=== PATIENT | male | born 1965 | race Caucasian/White ===

== ENCOUNTER 2020-08-18 20:02 | Emergency (ER) | payer MEDICAID, SELFPAY ==
--- NOTE | 2020-08-18 21:12 | ECG_ITS ---
Test Reason : SHORTNESS OF BREATH Blood Pressure : / mmHG Vent. Rate : 084 BPM Atrial Rate : 084 BPM P-R Int : 156 ms QRS Dur : 084 ms QT Int : 398 ms P-R-T Axes : 048 -20 -06 degrees QTc Int : 470 ms Normal sinus rhythm Voltage criteria for left ventricular hypertrophy Abnormal ECG No previous ECGs available Referred By: Harika Tejada Electronically Signed By:JULES DE LEON MD
[2020-08-18 21:40] VITALS: PULSE 86; RESP 18; TEMP 36.8; O2SAT 98; BMI 28.2
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
[2020-08-18 23:00] LABS: Carboxyhemoglobin 18.4 %
--- NOTE | 2020-08-18 23:11 | PC.NURSE ---
PT PLACED ON PT PLACED ON 02 IN ROOM DO TO ELEVATED LABS.
[2020-08-18 23:59] LABS: Carboxyhemoglobin 16.6 %
--- NOTE | 2020-08-19 00:07 | PC.NURSE ---
REPEAT BG STILL HIGH PT WILL REMAIN ON 4L OF O2. REPEAT GAS WILL BE ORDERED.
--- NOTE | 2020-08-19 00:32 | PC.NURSE ---
PT WILL BE RE-DRAWN AT 12:50 PM.
[2020-08-19 01:14] LABS: Carboxyhemoglobin 11.8 %
[2020-08-19 01:17] VITALS: BP 118/69; PULSE 61; RESP 16; O2SAT 100
--- NOTE | 2020-08-19 02:17 | PC.NURSE ---
pt increased to 6lpm via nc.
[2020-08-19 04:11] LABS: Carboxyhemoglobin 6.3 %
--- NOTE | 2020-08-19 04:12 | PC.NURSE ---
per md pt is okay to go home.
[2020-08-19 04:22] VITALS: BP 120/69; PULSE 60; RESP 18; O2SAT 100
== END 2020-08-19 04:23 | disposition home or self-care (01) ==
PROVIDERS: Nurse Practitioner Family; Student in an Organized Health Care Education/Training Program; Emergency Provider Internal Medicine
DX: T58.01XA Toxic effect of carbon monoxide from motor vehicle exhaust, accidental (unintentional), initial encounter (principal); R42 Dizziness and giddiness; X58.XXXA Exposure to other specified factors, initial encounter
CPT/HCPCS: 82375; 93005; 99284

== ENCOUNTER 2021-07-14 14:26 | Emergency (ER) | payer MEDICAID, SELFPAY ==
[2021-07-14 16:56] VITALS: BP 135/84; PULSE 64; RESP 18; TEMP 36.8; O2SAT 97; BMI 27.6
== END 2021-07-15 03:06 | disposition left against medical advice (07) ==
PROVIDERS: Emergency Provider Emergency Medicine
DX: G43.009 Migraine without aura, not intractable, without status migrainosus (principal)
CPT/HCPCS: 99281; 99282

== ENCOUNTER 2021-10-27 17:04 | Outpatient (REF) | payer MEDICAID, SELFPAY ==
--- NOTE | ~2021-10-27 | XR_ITS ---
EXAMINATION: XR SHOULDER, LEFT CLINICAL INFORMATION: Pain COMPARISON: None TECHNIQUE: AP external rotation, Grashey, scapular Y, and axillary views of the left shoulder. FINDINGS: Mild acromioclavicular arthritis. Mild enthesopathy/spurring along the inferior glenoid. Glenohumeral joint space is maintained. No fracture or dislocation. XR/XR shoulder LT min 2V IMPRESSION: Mild acromioclavicular arthritis. No acute findings.
== END 2021-10-27 17:05 | disposition home or self-care (01) ==
LOC: HO.XRAY 17:04
PROVIDERS: Absent Provider Registered Nurse Community Health; PCP Registered Nurse Community Health; Visit Provider Emergency Medicine
DX: M79.622 Pain in left upper arm (principal)
CPT/HCPCS: 73030

== ENCOUNTER 2021-12-27 19:17 | Emergency (ER) | payer MEDICAID, SELFPAY ==
--- NOTE | ~2021-12-27 | XR_ITS ---
EXAMINATION: XR CHEST CLINICAL INFORMATION: Chest pain COMPARISON: 07/21/2016 TECHNIQUE: Frontal view of the chest was obtained. FINDINGS: Patchy and streaky opacities present within the left mid and lower lung. Right lung clear. Normal heart size and pulmonary vascularity. No pleural effusion or pneumothorax. No acute osseous abnormalities. XR/XR chest 1V IMPRESSION: Left mid and lower lung patchy and streaky airspace opacities. Statistically, this relates to pneumonia unless there is some other potential etiology for an airspace filling process (ie pulmonary hemorrhage, or asymmetric edema)
[2021-12-27 20:37] VITALS: BP 119/80; PULSE 92; RESP 20; TEMP 39.5; O2SAT 94; BMI 27.6
[2021-12-27] MEDS: Acetaminophen 325 MG TABLET 650 MG PO (20:45)
[2021-12-27 21:02] LABS: MANUAL DIFF FLAG NO
[2021-12-27 21:04] LABS: Basophils Percent Auto 0.2 % (0-2); Eosinophils Absolute Auto 0.1 X10*3/uL (0.0-0.4); Eosinophils Percent Auto 0.5 % (0-4); Hematocrit 40.9 % (42.0-52.0); Hemoglobin 13.7 g/dl (14.0-18.0); Imm Gran Pct Auto 0.9 % (0.0-0.4); Lymphocytes Percent Auto 9.1 % (20-40); Mean Corpuscular HGB Conc 33.5 g/dl (31.0-36.0); Mean Corpuscular Hemoglobin 29.6 pg (27.0-33.0); Mean Corpuscular Volume 88.3 fL (80.0-98.0); Monocytes Absolute Auto 1.1 X10*3/uL (0.1-1.2); Monocytes Percent Auto 9.5 % (2-11); Neutrophils Absolute Auto 8.8 x10*3/uL (2.0-8.3); Neutrophils Percent Auto 79.8 % (45-73); Platelet Count 184 X10*3/uL (160-400); Red Blood Count 4.63 X10*6/uL (4.60-5.80); Red Cell Distribution Width 13.2 % (11.0-16.0)
[2021-12-27 21:26] LABS: Influenza A Negative (Negative); Influenza B2 Negative (Negative)
[2021-12-27 21:27] LABS: COVID-19 Test Negative (Negative)
[2021-12-27 21:43] LABS: Anion Gap 16 (12-20); Blood Urea Nitrogen 13 mg/dL (9-16); Calcium 8.6 mg/dL (8.4-10.2); Carbon Dioxide 24 mmol/L (22-29); Chloride 99 mmol/L (96-108); Creatinine Clr Calc Pharmacy 108.7; Estimated Glomerular Filt Rate > 60; Glucose Random 111 mg/dL (60-115); Potassium 3.9 mmol/L (3.3-5.1); Sodium 135 mmol/L (135-145)
[2021-12-27 22:29] VITALS: BP 123/78; PULSE 76; RESP 20; TEMP 37.3; O2SAT 94
--- NOTE | 2021-12-27 23:03 | ED.FEVER ---
HPI - Fever General Chief Complaint: Fever Stated Complaint: fever,head and body aches Time Seen by Provider: 12/27/21 22:01 History of Present Illness HPI Narrative: Patient is 56 years old presents today with having coughing upper respiratory symptoms. Positive generalized malaise. No travel history. No history of tick bites. No pain on urination. No sore throat. No earache. Patient immunized for COVID x3. There is no pain on urination. Related Data Previous Rx's Medication Instructions Recorded doxycycline hyclate 100 mg capsule 100 mg PO BID cough 7 days #14 caps 12/28/21 doxycycline hyclate 100 mg capsule 100 mg PO BID cough 7 days #14 caps 12/28/21 Allergies Allergy/AdvReac Type Severity Reaction Status Date / Time tramadol [TRAMADOL] Allergy Severe RASH Verified 07/14/21 16:56 sea salt chips Allergy Unknown anaphylaxis Uncoded 09/09/18 00:00 ,rash,hives Review of Systems Review of Systems: Positive coughing congestion upper respiratory symptoms Yes all other systems are reviewed and are negative [facility] Past Medical History Attestation statement: The following information was validated with the patient. Medical History Hypertension Migraines Social History Social History Alcohol intake: never Patient Tobacco Use Status: Never used Tobacco Use of substances other than those prescribed or required for medical reasons: No Advance Directives: No Advance Directives Information Provided: No Physical Exam Vital Signs: Vital Signs: Last Vital Signs Temp 97.9 F 12/28/21 00:13 Pulse 72 12/28/21 00:13 Resp 16 12/28/21 00:13 BP 111/75 12/28/21 00:13 Pulse Ox 96 12/28/21 00:13 O2 Del Method 12/28/21 00:13 BMI result Body Mass Index 27.6 Appearance: Alert. Oriented X3. No acute distress. Eyes: Pupils equal, round and reactive to light. ENT: Pharynx normal. Neck: Normal inspection. Neck supple. No lymph nodes noted. No crepitus CVS: Normal heart rate and rhythm. Pulses normal. Normal S1 and S2 Respiratory: No respiratory distress. Breath sounds normal. No Wheezing. No rales Abdomen: Soft and nontender. No rigidity. No distention. good BS x4 Skin: Skin warm and dry. Normal skin color. Normal skin turgor. Extremities: No lower extremity edema. Neurovascular intact to all extremities. No Lacerations. No Rash Neuro: Oriented X 3. No motor deficit. No sensory deficit. Moving all extermities. No slurred speech MDM - Fever MDM Narrative Medical decision making narrative: White count 11 O2 sats 94% on room air. Patient's COVID test was negative. Chest x-ray consistent with having pneumonia. Will start patient on doxycycline. Will have patient follow-up on an outpatient basis. Will ambulate patient prior to discharge make sure patient's O2 sats good. Post ambulation no shortness of breath patient well-appearing. O2 sat 96% on room air Medical Records Attestation: I reviewed the patient's medical records. Lab Data Attestation: I reviewed the patient's lab results. Result diagrams: 12/27/21 20:46 12/27/21 20:46 Labs: Lab Results 12/27/21 12/27/21 12/27/21 Range/Units 20:46 20:46 20:49 WBC 11.0 H (4.8-10.8) X10*3/uL RBC 4.63 (4.60-5.80) X10*6/uL Hgb 13.7 L (14.0-18.0) g/dl Hct 40.9 L (42.0-52.0) % MCV 88.3 (80.0-98.0) fL MCH 29.6 (27.0-33.0) pg MCHC 33.5 (31.0-36.0) g/dl RDW 13.2 (11.0-16.0) % Plt Count 184 (160-400) X10*3/uL MPV 10.0 (9.4-12.4) fL Immature Gran % (Auto) 0.9 H (0.0-0.4) % Neut % (Auto) 79.8 H (45-73) % Lymph % (Auto) 9.1 L (20-40) % [place] % (Auto) 9.5 (2-11) % Eos % (Auto) 0.5 (0-4) % Baso % (Auto) 0.2 (0-2) % Lymph # (Auto) 1.0 L (1.2-4.9) X10*3/uL [place] # (Auto) 1.1 (0.1-1.2) X10*3/uL Eos # (Auto) 0.1 (0.0-0.4) X10*3/uL Baso # (Auto) 0.0 (0.0-0.2) X10*3/uL Abs Immat Gran (auto) 0.10 H (0.00-0.03) X10*3/uL Absolute Neuts (auto) 8.8 H (2.0-8.3) x10*3/uL Absolute Nucleated RBC 0.000 (0.0-0.012) X10*3/uL Nucleated RBC % (auto) 0.0 (0.0-0.2) /100WBC Sodium 135 (135-145) mmol/L Potassium 3.9 (3.3-5.1) mmol/L Chloride 99 (96-108) mmol/L Carbon Dioxide 24 (22-29) mmol/L Anion Gap 16 (12-20) BUN 13 (9-16) mg/dL Creatinine 0.82 (0.5-1.4) mg/dL Estim Creat Clear Calc 108.7 Estimated GFR > 60 Random Glucose 111 (60-115) mg/dL Calcium 8.6 (8.4-10.2) mg/dL Urine Color Urine Appearance Urine pH (5.0-8.0) Ur Specific [place] (1.005-1.025) Urine Protein (NEG-TRACE) MG/DL Urine Glucose (UA) (NEG) MG/DL Urine Ketones (NEG) MG/DL Urine Blood (NEG) Urine Nitrite (NEG) Ur Leukocyte Esterase (NEG) Urine RBC (0) /HPF Urine WBC (0-4) /HPF Ur Squamous Epith Cells /LPF Urine Bacteria /LPF COVID-19 (MICAELA) (Negative) COVID-19 Clin Com Influenza Type A (SHIRLEY) Negative (Negative) Influenza Type B (SHIRLEY) Negative (Negative) Influenza A & B Note See Note 12/27/21 12/27/21 Range/Units 20:49 22:55 WBC (4.8-10.8) X10*3/uL RBC (4.60-5.80) X10*6/uL Hgb (14.0-18.0) g/dl Hct (42.0-52.0) % MCV (80.0-98.0) fL MCH (27.0-33.0) pg MCHC (31.0-36.0) g/dl RDW (11.0-16.0) % Plt Count (160-400) X10*3/uL MPV (9.4-12.4) fL Immature Gran % (Auto) (0.0-0.4) % Neut % (Auto) (45-73) % Lymph % (Auto) (20-40) % [place] % (Auto) (2-11) % Eos % (Auto) (0-4) % Baso % (Auto) (0-2) % Lymph # (Auto) (1.2-4.9) X10*3/uL [place] # (Auto) (0.1-1.2) X10*3/uL Eos # (Auto) (0.0-0.4) X10*3/uL Baso # (Auto) (0.0-0.2) X10*3/uL Abs Immat Gran (auto) (0.00-0.03) X10*3/uL Absolute Neuts (auto) (2.0-8.3) x10*3/uL Absolute Nucleated RBC (0.0-0.012) X10*3/uL Nucleated RBC % (auto) (0.0-0.2) /100WBC Sodium (135-145) mmol/L Potassium (3.3-5.1) mmol/L Chloride (96-108) mmol/L Carbon Dioxide (22-29) mmol/L Anion Gap (12-20) BUN (9-16) mg/dL Creatinine (0.5-1.4) mg/dL Estim Creat Clear Calc Estimated GFR Random Glucose (60-115) mg/dL Calcium (8.4-10.2) mg/dL Urine Color YELLOW Urine Appearance CLEAR Urine pH 6.5 (5.0-8.0) Ur Specific [place] <= 1.005 (1.005-1.025) Urine Protein 2+ H (NEG-TRACE) MG/DL Urine Glucose (UA) NEG (NEG) MG/DL Urine Ketones NEG (NEG) MG/DL Urine Blood 1+ H (NEG) Urine Nitrite NEG (NEG) Ur Leukocyte Esterase NEG (NEG) Urine RBC 0-2 (0) /HPF Urine WBC 0-2 (0-4) /HPF Ur Squamous Epith Cells TRACE /LPF Urine Bacteria NONE /LPF COVID-19 (MICAELA) Negative (Negative) COVID-19 Clin Com See Note Influenza Type A (SHIRLEY) (Negative) Influenza Type B (SHIRLEY) (Negative) Influenza A & B Note Discharge Plan Discharge Clinical Impression: Pneumonia Patient Disposition: Home, Self-Care Instructions: Community Acquired Pneumonia (ED) Prescriptions: New doxycycline hyclate 100 mg capsule 100 mg PO BID 7 Days Qty: 14 0RF doxycycline hyclate 100 mg capsule 100 mg PO BID 7 Days Qty: 14 0RF Referrals: [facility] [Primary Care Provider] -
[2021-12-27 23:05] LABS: Appearance Urine CLEAR; Color Urine YELLOW; Glucose Urine UA NEG (NEG); Leukocyte Esterase Urine NEG (NEG); Nitrite Urine NEG (NEG); PH 6.5 (5.0-8.0); Specific Gravity - Urine <= 1.005 (1.005-1.025); UACC Culture Trigger NO; Urine Blood 1+ (NEG); Urine Ketones NEG (NEG); Urine Protein 2+ MG/DL (NEG-TRACE)
[2021-12-27 23:14] LABS: RBC Urine 0-2 /HPF (0); Squamous Epithelial Cell Urine TRACE /LPF; WBC Urine 0-2 /HPF (0-4)
[2021-12-27 23:19] VITALS: BP 106/73; PULSE 66; RESP 16; TEMP 36.6; O2SAT 94
[2021-12-28 00:13] VITALS: BP 111/75; PULSE 72; RESP 16; TEMP 36.6; O2SAT 96
[2021-12-28 00:32] VITALS: BP 118/78; PULSE 65; RESP 16; TEMP 37.1; O2SAT 95
[2021-12-29 13:11] LABS: Lyme Abs Screen <0.90 index
[2021-12-29 17:20] LABS: Babesia Smear NEGATIVE (NEGATIVE)
[2021-12-31 02:52] LABS: Babesia IgG <1:64 titer (<1:64); Babesia IgM <1:20 titer (<1:20)
[2021-12-31 03:38] LABS: A. Phagocytophilum Ab IgG <1:64 (<1:64); A. Phagocytophilum Ab IgM <1:20 (<1:20); E. Chaffeensis Ab IgG <1:64 (<1:64); E. Chaffeensis Ab IgM <1:20 (<1:20)
== END 2021-12-28 00:41 | disposition home or self-care (01) ==
PROVIDERS: Emergency Provider Emergency Medicine Emergency Medical Services
DX: J18.9 Pneumonia, unspecified organism (principal); Z20.822 Contact with and (suspected) exposure to COVID-19; R50.9 Fever, unspecified; I10 Essential (primary) hypertension
CPT/HCPCS: 36415; 71045; 80048; 81001; 85025; 86617; 86618; 86666; 86753; 87040; 87207; 87502; 87635; 99283; 99285

== ENCOUNTER → 2022-02-27 07:48 | Outpatient (BNVA) | payer MEDICAID, SELFPAY | PROVIDERS: Visit Provider Physician Assistant | DX: M75.42 Impingement syndrome of left shoulder (principal) | CPT/HCPCS: 20610; 99202; J1040 ==

== ENCOUNTER → 2022-05-26 10:35 | Outpatient (BNVA) | payer OTHER, MEDICAID, SELFPAY | PROVIDERS: Visit Provider Nurse Practitioner | DX: Z01.818 Encounter for other preprocedural examination (principal) | CPT/HCPCS: 99202 ==

== ENCOUNTER 2022-05-28 16:33 | Emergency (ER) | payer MEDICAID, SELFPAY ==
--- NOTE | ~2022-05-28 | XR_ITS ---
EXAMINATION: XR chest 1V CLINICAL INFORMATION: Reason for Exam cp COMPARISON: Chest radiograph 12/27/2021 TECHNIQUE: One view of the chest FINDINGS: Clear lungs. No pneumothorax or pleural effusion. Normal cardiomediastinal silhouette. XR/XR chest 1V IMPRESSION: * Clear lungs.
[2022-05-28 16:38] VITALS: BP 142/93; PULSE 68; RESP 16; TEMP 36.6; O2SAT 97; BMI 28.3
--- NOTE | 2022-05-28 16:38 | ECG_ITS ---
Test Reason : chest pain Blood Pressure : / mmHG Vent. Rate : 066 BPM Atrial Rate : 066 BPM P-R Int : 160 ms QRS Dur : 082 ms QT Int : 434 ms P-R-T Axes : 047 -20 -05 degrees QTc Int : 454 ms Normal sinus rhythm Minimal voltage criteria for LVH, may be normal variant ( R in aVL ) Borderline ECG When compared with ECG of 18-AUG-2020 22:53, No significant change was found Referred By: Teresita Jean Electronically Signed By:RYAN WOODRUFF MD
--- NOTE | 2022-05-28 16:40 | ED_ITS ---
HPI - Chest Pain General Chief Complaint: Chest Pain <WILBER Zaragoza - Last Filed: 05/28/22 16:42> Stated Complaint: Chest Pain <WILBER Zaragoza - Last Filed: 05/28/22 16:42> Time Seen by Provider: 05/29/22 00:29 <WILBER Zaragoza - Last Filed: 05/28/22 16:42> Source: patient <Ulices Phan MD - Last Filed: 05/29/22 06:57> Mode of arrival: ambulatory <Ulices Phan MD - Last Filed: 05/29/22 06:57> History of Present Illness HPI narrative: Patient is 56 years old with history of depression chronic low back pain high cholesterol PTSD comes here for headache and left-sided chest pain since yesterday after no nausea no vomiting no diaphoresis no palpitation no shortness of breath patient does have a history of migraine headache but this time headache is more localized in the frontal area without nausea/vomiting or photophobia <Ulices Phan MD - Last Filed: 05/29/22 06:57> Related Data Home Medications: Home Medications Medication Instructions Recorded Confirmed bisoprolol fumarate 5 mg tablet 5 mg PO DAILY 02/27/22 bupropion HCl 150 mg 24 hr tablet, 150 mg PO QAM 02/27/22 extended release fluticasone propionate 50 spray intranasal 02/27/22 mcg/actuation nasal spray,suspension gabapentin 300 mg capsule mg PO 02/27/22 ketotifen fumarate 0.025 % (0.035 drp ophthalmic (eye) 02/27/22 %) eye drops naproxen sodium 275 mg tablet 275 mg PO BID 02/27/22 nortriptyline 10 mg capsule 10 mg PO BID 02/27/22 sertraline 100 mg tablet 100 mg PO BID 02/27/22 trazodone 100 mg tablet mg PO 02/27/22 ubidecarenone-omega 3-vit E 25 1 cap PO DAILY 05/26/22 mg-150 (90-60) mg-200 unit capsule (Co O-37-Axlnmhc E-Fish Oil) Previous Rx's Medication Instructions Recorded doxycycline hyclate 100 mg capsule 100 mg PO BID cough 7 days #14 caps 12/28/21 peg 3350-electrolytes 236 240 ml PO Q10M 1 day #4,000 mL 05/26/22 gram-22.74 gram-6.74 gram-5.86 gram solution (Golytely) naproxen 500 mg tablet 500 mg PO BID PRN pain #20 tabs 05/29/22 <WILBER Zaragoza - Last Filed: 05/28/22 16:42> Allergies/Adverse Reactions: Allergies Allergy/AdvReac Type Severity Reaction Status Date / Time tramadol [TRAMADOL] Allergy Severe RASH Verified 05/28/22 16:38 sea salt chips Allergy Unknown anaphylaxis Uncoded 05/26/22 10:51 ,rash,hives <WILBER Zaragoza - Last Filed: 05/28/22 16:42> Review of Systems Review of Systems: Yes all other systems are reviewed and are negative <Ulices Phan MD - Last Filed: 05/29/22 06:57> [facility] Past Medical History Medical History: Medical History Hypertension Migraines <WILBER Zaragoza - Last Filed: 05/28/22 16:42> Surgical History: Surgical History H/O vasectomy <WILBER Zaragoza - Last Filed: 05/28/22 16:42> Social History Social History: Social History Alcohol intake: never Patient Tobacco Use Status: Never used Tobacco Advance Directives: No Advance Directives Information Provided: Yes Current occupational status: unemployed 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 <WILBER Zaragoza - Last Filed: 05/28/22 16:42> Physical Exam Vital Signs: Vital Signs: Last Vital Signs Temp 97.8 F 05/28/22 16:38 Pulse 63 05/29/22 01:50 Resp 18 05/29/22 01:50 BP 144/95 H 05/29/22 01:50 Pulse Ox 99 05/29/22 01:50 O2 Del Method 05/29/22 01:50 BMI result Body Mass Index 28.3 <WILBER Zaragoza - Last Filed: 05/28/22 16:42> Vital Signs: Last Vital Signs Temp 97.8 F 05/28/22 16:38 Pulse 63 05/29/22 01:50 Resp 18 05/29/22 01:50 BP 144/95 H 05/29/22 01:50 Pulse Ox 99 05/29/22 01:50 O2 Del Method 05/29/22 01:50 BMI result Body Mass Index 28.3 <Ulices Phan MD - Last Filed: 05/29/22 06:57> Appearance: Alert. Oriented X3. No acute distress. Eyes: PERRLA, No Nystagmus ENT: Pharynx normal. Oral Mucosa moist Neck: Normal inspection. Neck supple. CVS: Normal heart rate and rhythm. Pulses normal. Respiratory: No respiratory distress. Equal air entry bilateral, no wheezing/rales/rhonchi Abdomen: Soft and nontender. Bowel sounds are present, no mass palpable, no CVA tenderness Skin: Skin warm and dry. Normal skin color. Normal skin turgor. Extremities: No lower extremity edema. No calf tenderness Neuro: Oriented X 3. No motor deficit. No sensory deficit.No cerebellar signs , cranial nerves II-XII intact <Ulices Phan MD - Last Filed: 05/29/22 06:57> Course Course Course Narrative: RME--56yo M pmhx HTN c/o CP and KAT since yesterday AM. Pain intermittent. No assoc SOB, N/V. Admits to prior KAT's, took Excedrin w/o relief Plan: EKG, Labs, CXR, Fioricet ordered in Triage <WILBER Zaragoza - Last Filed: 05/28/22 16:42> Medications Administered Discontinued Medications Generic Name Dose Route Start Last Admin Trade Name Freq PRN Reason Stop Dose Admin Acetaminophen/Butalbital/Caffeine 1 tab 05/29/22 00:38 05/29/22 01:44 Butalb/Acetamin/Caff 50/325/40 Tablet PO 05/29/22 00:39 1 tab ONCE ONE Administration Ketorolac Tromethamine 60 mg 05/29/22 00:38 05/29/22 01:44 Ketorolac Tromethamine 60 Mg/2 Ml Vial IM 05/29/22 00:39 60 mg ONCE ONE Administration <WILBER Zaragoza - Last Filed: 05/28/22 16:42> Medications Administered Discontinued Medications Generic Name Dose Route Start Last Admin Trade Name Nat PRN Reason Stop Dose Admin Acetaminophen/Butalbital/Caffeine 1 tab 05/29/22 00:38 05/29/22 01:44 Butalb/Acetamin/Caff 50/325/40 Tablet PO 05/29/22 00:39 1 tab ONCE ONE Administration Ketorolac Tromethamine 60 mg 05/29/22 00:38 05/29/22 01:44 Ketorolac Tromethamine 60 Mg/2 Ml Vial IM 05/29/22 00:39 60 mg ONCE ONE Administration <Ulices Phan MD - Last Filed: 05/29/22 06:57> MDM - Chest Pain Lab Data Attestation: I reviewed the patient's lab results. <Ulices Phan MD - Last Filed: 05/29/22 06:57> Result diagrams: : 05/28/22 17:03 05/28/22 17:03 <WILBER Zaragoza - Last Filed: 05/28/22 16:42> Labs: Lab Results 05/28/22 05/28/22 05/28/22 Range/Units 17:02 17:03 17:03 WBC 6.1 (4.8-10.8) X10*3/uL RBC 5.26 (4.60-5.80) X10*6/uL Hgb 15.7 (14.0-18.0) g/dl Hct 46.4 (42.0-52.0) % MCV 88.2 (80.0-98.0) fL MCH 29.8 (27.0-33.0) pg MCHC 33.8 (31.0-36.0) g/dl RDW 12.6 (11.0-16.0) % Plt Count 150 L (160-400) X10*3/uL MPV 10.5 (9.4-12.4) fL Immature Gran % (Auto) 0.3 (0.0-0.4) % Neut % (Auto) 56.4 (45-73) % Lymph % (Auto) 31.8 (20-40) % Spalding % (Auto) 7.4 (2-11) % Eos % (Auto) 3.6 (0-4) % Baso % (Auto) 0.5 (0-2) % Lymph # (Auto) 1.9 (1.2-4.9) X10*3/uL Spalding # (Auto) 0.5 (0.1-1.2) X10*3/uL Eos # (Auto) 0.2 (0.0-0.4) X10*3/uL Baso # (Auto) 0.0 (0.0-0.2) X10*3/uL Abs Immat Gran (auto) 0.02 (0.00-0.03) X10*3/uL Absolute Neuts (auto) 3.4 (2.0-8.3) x10*3/uL Absolute Nucleated RBC 0.000 (0.0-0.012) X10*3/uL Nucleated RBC % (auto) 0.0 (0.0-0.2) /100WBC Sodium 141 (135-145) mmol/L Potassium 4.0 (3.3-5.1) mmol/L Chloride 104 (96-108) mmol/L Carbon Dioxide 25 (22-29) mmol/L Anion Gap 16 (12-20) BUN 12 (9-16) mg/dL Creatinine 0.88 (0.5-1.4) mg/dL Estim Creat Clear Calc 102.4 Estimated GFR > 60 Random Glucose 96 (60-115) mg/dL Calcium 9.2 D (8.4-10.2) mg/dL Total Bilirubin 0.4 (0.0-1.0) mg/dL Direct Bilirubin < 0.2 (0.0-0.5) mg/dL AST 22 (5-37) U/L ALT 22 (0-40) U/L Alkaline Phosphatase 86 (39-117) U/L Troponin I High Sens (<3.5-35.0) ng/L B-Natriuretic Peptide (<100) pg/mL Total Protein 7.3 (6.5-8.0) g/dL Albumin 4.3 (3.5-5.0) g/dL COVID-19 (MICAELA) Negative (Negative) COVID-19 Clin Com See Note 05/28/22 05/28/22 Range/Units 17:03 17:03 WBC (4.8-10.8) X10*3/uL RBC (4.60-5.80) X10*6/uL Hgb (14.0-18.0) g/dl Hct (42.0-52.0) % MCV (80.0-98.0) fL MCH (27.0-33.0) pg MCHC (31.0-36.0) g/dl RDW (11.0-16.0) % Plt Count (160-400) X10*3/uL MPV (9.4-12.4) fL Immature Gran % (Auto) (0.0-0.4) % Neut % (Auto) (45-73) % Lymph % (Auto) (20-40) % Spalding % (Auto) (2-11) % Eos % (Auto) (0-4) % Baso % (Auto) (0-2) % Lymph # (Auto) (1.2-4.9) X10*3/uL Spalding # (Auto) (0.1-1.2) X10*3/uL Eos # (Auto) (0.0-0.4) X10*3/uL Baso # (Auto) (0.0-0.2) X10*3/uL Abs Immat Gran (auto) (0.00-0.03) X10*3/uL Absolute Neuts (auto) (2.0-8.3) x10*3/uL Absolute Nucleated RBC (0.0-0.012) X10*3/uL Nucleated RBC % (auto) (0.0-0.2) /100WBC Sodium (135-145) mmol/L Potassium (3.3-5.1) mmol/L Chloride (96-108) mmol/L Carbon Dioxide (22-29) mmol/L Anion Gap (12-20) BUN (9-16) mg/dL Creatinine (0.5-1.4) mg/dL Estim Creat Clear Calc Estimated GFR Random Glucose (60-115) mg/dL Calcium (8.4-10.2) mg/dL Total Bilirubin (0.0-1.0) mg/dL Direct Bilirubin (0.0-0.5) mg/dL AST (5-37) U/L ALT (0-40) U/L Alkaline Phosphatase (39-117) U/L Troponin I High Sens < 3.5 (<3.5-35.0) ng/L B-Natriuretic Peptide 15 (<100) pg/mL Total Protein (6.5-8.0) g/dL Albumin (3.5-5.0) g/dL COVID-19 (MICAELA) (Negative) COVID-19 Clin Com <WILEBR Zaragoza - Last Filed: 05/28/22 16:42> Lab Results 05/28/22 05/28/22 05/28/22 Range/Units 17:02 17:03 17:03 WBC 6.1 (4.8-10.8) X10*3/uL RBC 5.26 (4.60-5.80) X10*6/uL Hgb 15.7 (14.0-18.0) g/dl Hct 46.4 (42.0-52.0) % MCV 88.2 (80.0-98.0) fL MCH 29.8 (27.0-33.0) pg MCHC 33.8 (31.0-36.0) g/dl RDW 12.6 (11.0-16.0) % Plt Count 150 L (160-400) X10*3/uL MPV 10.5 (9.4-12.4) fL Immature Gran % (Auto) 0.3 (0.0-0.4) % Neut % (Auto) 56.4 (45-73) % Lymph % (Auto) 31.8 (20-40) % Spalding % (Auto) 7.4 (2-11) % Eos % (Auto) 3.6 (0-4) % Baso % (Auto) 0.5 (0-2) % Lymph # (Auto) 1.9 (1.2-4.9) X10*3/uL Spalding # (Auto) 0.5 (0.1-1.2) X10*3/uL Eos # (Auto) 0.2 (0.0-0.4) X10*3/uL Baso # (Auto) 0.0 (0.0-0.2) X10*3/uL Abs Immat Gran (auto) 0.02 (0.00-0.03) X10*3/uL Absolute Neuts (auto) 3.4 (2.0-8.3) x10*3/uL Absolute Nucleated RBC 0.000 (0.0-0.012) X10*3/uL Nucleated RBC % (auto) 0.0 (0.0-0.2) /100WBC Sodium 141 (135-145) mmol/L Potassium 4.0 (3.3-5.1) mmol/L Chloride 104 (96-108) mmol/L Carbon Dioxide 25 (22-29) mmol/L Anion Gap 16 (12-20) BUN 12 (9-16) mg/dL Creatinine 0.88 (0.5-1.4) mg/dL Estim Creat Clear Calc 102.4 Estimated GFR > 60 Random Glucose 96 (60-115) mg/dL Calcium 9.2 D (8.4-10.2) mg/dL Total Bilirubin 0.4 (0.0-1.0) mg/dL Direct Bilirubin < 0.2 (0.0-0.5) mg/dL AST 22 (5-37) U/L ALT 22 (0-40) U/L Alkaline Phosphatase 86 (39-117) U/L Troponin I High Sens (<3.5-35.0) ng/L B-Natriuretic Peptide (<100) pg/mL Total Protein 7.3 (6.5-8.0) g/dL Albumin 4.3 (3.5-5.0) g/dL COVID-19 (MICAELA) Negative (Negative) COVID-19 Clin Com See Note 05/28/22 05/28/22 Range/Units 17:03 17:03 WBC (4.8-10.8) X10*3/uL RBC (4.60-5.80) X10*6/uL Hgb (14.0-18.0) g/dl Hct (42.0-52.0) % MCV (80.0-98.0) fL MCH (27.0-33.0) pg MCHC (31.0-36.0) g/dl RDW (11.0-16.0) % Plt Count (160-400) X10*3/uL MPV (9.4-12.4) fL Immature Gran % (Auto) (0.0-0.4) % Neut % (Auto) (45-73) % Lymph % (Auto) (20-40) % Spalding % (Auto) (2-11) % Eos % (Auto) (0-4) % Baso % (Auto) (0-2) % Lymph # (Auto) (1.2-4.9) X10*3/uL Spalding # (Auto) (0.1-1.2) X10*3/uL Eos # (Auto) (0.0-0.4) X10*3/uL Baso # (Auto) (0.0-0.2) X10*3/uL Abs Immat Gran (auto) (0.00-0.03) X10*3/uL Absolute Neuts (auto) (2.0-8.3) x10*3/uL Absolute Nucleated RBC (0.0-0.012) X10*3/uL Nucleated RBC % (auto) (0.0-0.2) /100WBC Sodium (135-145) mmol/L Potassium (3.3-5.1) mmol/L Chloride (96-108) mmol/L Carbon Dioxide (22-29) mmol/L Anion Gap (12-20) BUN (9-16) mg/dL Creatinine (0.5-1.4) mg/dL Estim Creat Clear Calc Estimated GFR Random Glucose (60-115) mg/dL Calcium (8.4-10.2) mg/dL Total Bilirubin (0.0-1.0) mg/dL Direct Bilirubin (0.0-0.5) mg/dL AST (5-37) U/L ALT (0-40) U/L Alkaline Phosphatase (39-117) U/L Troponin I High Sens < 3.5 (<3.5-35.0) ng/L B-Natriuretic Peptide 15 (<100) pg/mL Total Protein (6.5-8.0) g/dL Albumin (3.5-5.0) g/dL COVID-19 (MICAELA) (Negative) COVID-19 Clin Com <Ulices Phan MD - Last Filed: 05/29/22 06:57> ECG Data ECG #1: Attestation: I personally reviewed and interpreted this ECG as follows: <Ulices Phan MD - Last Filed: 05/29/22 06:57> Interpretation: Normal sinus rhythm heart rate 66 beats per minute LVH no acute ST T wave changes no acute ischemia <Ulices Phan MD - Last Filed: 05/29/22 06:57> Discharge Plan Discharge Clinical Impression: Migraine, Chest pain <WILBER Zaragoza - Last Filed: 05/28/22 16:42> Patient Disposition: Home, Self-Care <WILBER Zaragoza - Last Filed: 05/28/22 16:42> Additional Instructions: Rest at home Follow with your PCP for further evaluation Continue your medications <WILBER Zaragoza - Last Filed: 05/28/22 16:42> Prescriptions: New naproxen 500 mg tablet 500 mg PO BID PRN (Reason: pain) Qty: 20 0RF No Action doxycycline hyclate 100 mg capsule 100 mg PO BID 7 Days Qty: 14 0RF peg 3350-electrolytes [Golytely] 236-22.74-6.74 -5.86 gram recon soln 240 ml PO Q10M 1 Days Qty: 4000 0RF Rx Instructions: until fecal effluent is clear; do not exceed a total volume of 2,000 mL Co X-22-Hbeqcyd E-Fish Oil 25-150-200 mg-mg-unit capsule 1 cap PO DAILY bupropion HCl 150 mg tablet extended release 24 hr 150 mg PO QAM trazodone 100 mg tablet PO sertraline 100 mg tablet 100 mg PO BID fluticasone propionate 50 mcg/actuation spray,suspension intranasal naproxen sodium 275 mg tablet 275 mg PO BID gabapentin 300 mg capsule PO nortriptyline 10 mg capsule 10 mg PO BID bisoprolol fumarate 5 mg tablet 5 mg PO DAILY ketotifen fumarate 0.025 % (0.035 %) drops ophthalmic (eye) <WILBER Zaragoza - Last Filed: 05/28/22 16:42> Interventions: ED Discharge Assessment Last Done: 05/29/22 03:21 <WILBER Zaragoza - Last Filed: 05/28/22 16:42> Discharge Date/Time: 05/29/22 03:21 <WILBER Zaragoza - Last Filed: 05/28/22 16:42>
[2022-05-28 17:11] LABS: MANUAL DIFF FLAG NO
[2022-05-28 17:19] LABS: Basophils Percent Auto 0.5 % (0-2); Eosinophils Absolute Auto 0.2 X10*3/uL (0.0-0.4); Eosinophils Percent Auto 3.6 % (0-4); Hematocrit 46.4 % (42.0-52.0); Hemoglobin 15.7 g/dl (14.0-18.0); Imm Gran Abs Auto 0.02 X10*3/uL (0.00-0.03); Imm Gran Pct Auto 0.3 % (0.0-0.4); Lymphocytes Absolute Auto 1.9 X10*3/uL (1.2-4.9); Lymphocytes Percent Auto 31.8 % (20-40); Mean Corpuscular HGB Conc 33.8 g/dl (31.0-36.0); Mean Corpuscular Hemoglobin 29.8 pg (27.0-33.0); Mean Corpuscular Volume 88.2 fL (80.0-98.0); Mean Platelet Volume 10.5 fL (9.4-12.4); Monocytes Absolute Auto 0.5 X10*3/uL (0.1-1.2); Monocytes Percent Auto 7.4 % (2-11); Neutrophils Absolute Auto 3.4 x10*3/uL (2.0-8.3); Neutrophils Percent Auto 56.4 % (45-73); Platelet Count 150 X10*3/uL (160-400); Red Blood Count 5.26 X10*6/uL (4.60-5.80); Red Cell Distribution Width 12.6 % (11.0-16.0); White Blood Count 6.1 X10*3/uL (4.8-10.8)
[2022-05-28 17:28] LABS: Alanine Aminotransferase 22 U/L (0-40); Albumin Level 4.3 g/dL (3.5-5.0); Alkaline Phosphatase 86 U/L (39-117); Anion Gap 16 (12-20); Aspartate Amino Transferase 22 U/L (5-37); Bilirubin Direct < 0.2 mg/dL (0.0-0.5); Bilirubin Total 0.4 mg/dL (0.0-1.0); Blood Urea Nitrogen 12 mg/dL (9-16); Calcium 9.2 mg/dL (8.4-10.2); Carbon Dioxide 25 mmol/L (22-29); Chloride 104 mmol/L (96-108); Creatinine Clr Calc Pharmacy 102.4; Estimated Glomerular Filt Rate > 60; Glucose Random 96 mg/dL (60-115); Sodium 141 mmol/L (135-145); Total Protein 7.3 g/dL (6.5-8.0)
[2022-05-28 17:31] LABS: COVID-19 Test Negative (Negative); IDNOW Serial# 16C4AD1C
[2022-05-28 17:34] LABS: B Type Natriuretic Peptide 15 pg/mL (<100); Troponin-I High Sensitivity < 3.5 ng/L (<3.5-35.0)
[2022-05-29] MEDS: Ketorolac Tromethamine 60 MG/2 ML VIAL IM (01:44)
[2022-05-29] MEDS: Butalb/Acetamin/Caff 50/325/40 TABLET 1 TAB PO (01:44)
[2022-05-29 01:50] VITALS: BP 144/95; PULSE 63; RESP 18; O2SAT 99
--- NOTE | 2022-05-29 01:51 | PC.NURSE ---
pt a&ox3, vss - hypertensive, pt reports that he hasn't taken his pm medications yet, medicated per provider order for 10/10 headache pain. no new orders at this time.
== END 2022-05-29 03:21 | disposition home or self-care (01) ==
PROVIDERS: Physician Assistant; Emergency Provider Internal Medicine
DX: G43.909 Migraine, unspecified, not intractable, without status migrainosus (principal); R07.89 Other chest pain; Z20.822 Contact with and (suspected) exposure to COVID-19; Z79.899 Other long term (current) drug therapy
CPT/HCPCS: 36415; 71045; 80048; 80076; 83880; 84484; 85025; 87635; 93005; 96372; 99284; J1885

== ENCOUNTER 2023-02-01 12:58 | Day surgery (SDC) | payer OTHER, SELFPAY ==
[2023-02-01 08:17] VITALS: BMI 27.9
[2023-02-01 13:01] VITALS: BP 141/98; PULSE 73; RESP 20; TEMP 36.1; O2SAT 98
[2023-02-01] MEDS: Lactated Ringers 1,000 ML 100 ML IVCONT (13:22)
--- NOTE | 2023-02-01 13:45 | PC.NURSE ---
amesthesia aware of patient cardiac hx pt denies c/p denies sob
--- NOTE | 2023-02-01 13:45 | MHC.SHP ---
Pre-Procedural Eval Section A Date of Service: 02/01/23 The patient is an INPATIENT: No The History & Physical has been completed within 30 days and I have reviewed it.: No Section B Chief Complaint: screening, GERD Relevant Family History (Specify if Yes): No Relevant Social History: None Present Medications: see Short Stay Collaborative assessment Medical History: Significant History (Obstructive sleep apnea Hypertension High cholesterol Tremor Chronic pain Migraines Depression/PTSD) History of Previous Operations: Relevant previous surgery/procedure and date(s) (Vasectomy Cyst removal from forearm) Allergies: Allergies Allergy/AdvReac Type Severity Reaction Status Date / Time tramadol [TRAMADOL] Allergy Severe RASH Verified 05/28/22 16:38 sea salt chips Allergy Unknown anaphylaxis Uncoded 05/26/22 10:51 ,rash,hives Review of Systems Sugical H&P ROS: Negative: Constitution, Cardiovascular, Respiratory and Gastrointestinal Exam Surgical H&P Exam: Normal: Heart, Normal: Lungs, Normal: Extremities and Normal: Abdomen Plan Diagnosis/Plan: Unchanged I have reviewed the history and physical and performed a pertinent physical examination on my patient. No changes have occurred unless specified. Time Spent With Patient Time: Total time managing care of this patient today ____ minutes.
--- NOTE | 2023-02-01 14:13 | P.CONAN_ITS ---
[facility] Active Problems Active Problems: All Active Problems (Updated 05/30/22 @ 00:01 by Background Daemon) Impingement syndrome of left shoulder (Acute) SUMAN (obstructive sleep apnea) (Acute) High cholesterol (Acute) Tremor (Acute) Chronic pain (Acute) Low back pain (Acute) Depression (Acute) PTSD (post-traumatic stress disorder) (Acute) Dupuytrens contracture (Acute) Pre-op examination (Acute) Past Medical History Medical History (Updated 05/30/22 @ 00:01 by Background Daemon) Hypertension Migraines Family History Family history of problems with anesthesia: No Surgical History Surgical History (Updated 02/01/23 @ 13:38 by Madonna Dennis RN) H/O vasectomy Hx of cardiac catheterization History of Problems with Anesthesia: No Social History Social History Alcohol intake: never Patient Tobacco Use Status: Never used Tobacco Are you DNR?: No Advance Directives: No Advance Directives Information Provided: Yes Current occupational status: unemployed 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 Meds Allergies Allergy/AdvReac Type Severity Reaction Status Date / Time tramadol [TRAMADOL] Allergy Severe RASH Verified 05/28/22 16:38 sea salt chips Allergy Unknown anaphylaxis Uncoded 05/26/22 10:51 ,rash,hives Active Medications: Current Medications Lactated Ringer's (Lr) 1,000 mls @ 100 mls/hr IVCONT .Q10H NAVDEEP Last Admin: 02/01/23 13:22 Dose: 100 mls/hr Home Medications Medication Instructions Recorded Confirmed Last Taken Type bisoprolol fumarate 5 mg tablet 5 mg PO DAILY 02/27/22 02/01/23 02/01/23 History bupropion HCl 150 mg 24 hr tablet, 150 mg PO QAM 02/27/22 02/01/23 02/01/23 History extended release fluticasone propionate 50 2 spray intranasal BID 02/27/22 02/01/23 01/20/23 History mcg/actuation nasal spray,suspension gabapentin 300 mg capsule 600 mg PO BEDTIME 02/27/22 02/01/23 01/31/23 History ketotifen fumarate 0.025 % (0.035 2 drp ophthalmic (eye) DAILY 08/12/22 07/17/23 07/10/23 History %) eye drops nortriptyline 10 mg capsule 10 mg PO BID 02/27/22 02/01/23 01/30/23 History sertraline 100 mg tablet 100 mg PO BID 02/27/22 02/01/23 02/01/23 History trazodone 100 mg tablet 1 mg PO BEDTIME 02/27/22 02/01/23 01/31/23 History ubidecarenone-omega 3-vit E 25 1 cap PO DAILY 05/26/22 02/01/23 01/26/23 History mg-150 (90-60) mg-200 unit capsule (Co I-45-Fqnxihn E-Fish Oil) Exam Exam Date and Time: February 01, 2023 141 Height,Weight and Vital Signs: Height 5 ft 9 in Weight 85.729 kg Last Vital Signs Temp 97 F 02/01/23 13:01 Pulse 73 02/01/23 13:01 Resp 20 02/01/23 13:01 BP 141/98 H 02/01/23 13:01 Pulse Ox 98 02/01/23 13:01 O2 Del Method Room Air 02/01/23 13:01 Airway Mallampati Class: II TM Dist: >3cm Neck ROM: Full Denture: Upper Heart: rrr Lungs: cta Assessment and Plan Assessment Anesthesia Assessment: Anesthesia Plan Discussed (pt startes stress test 6 months ago normal, exercises frequently- biking,) and Chart Reviewed Final Anesthetic Review Family History of Problems with Anesthesia: No History of Problems with Anesthesia: No NPO: Yes ASA Class: II Final Preanesthetic Review: No Changes in Pt Med Stat, Meds/Allgs Chart Reviewed and Consent Obtained/Reviewed Patient Risk: Intermediate Procedure Risk: Intermediate Anesthetic Plan Anesthetic Plan: MAC: Disposition: Standard PACU
--- NOTE | 2023-02-01 15:04 | W.PM.OPN ---
Operative Note Operative Note Date of Service: 02/01/23 Narrative: FLEXIBLE TRANSORAL UPPER GASTROINTESTINAL ENDOSCOPY WITH BIOPSIES AND COLONOSCOPY TILL CECUM WITH SNARE POLYPECTOMY Pre-op diagnosis: Colon cancer screening, GERD Post-op diagnosis: GERD, gastritis, gastric antral nodule, colon polyp, diverticulosis, hemorrhoids.? Endoscopist:? Carina Allen MD Anesthesia:?MAC UPPER ENDOSCOPY Consent: Indications for the procedure and potential complications of bleeding, perforation, reaction to medications and missed diagnosis were discussed with the patient and informed consent was obtained. Instrument: Olympus GIF H 190 mid size upper endoscope Monitoring: Vital signs and clinical assessment, continuous EKG monitoring, Pulse oximetry, Carbon Dioxide monitoring and blood pressure monitoring were done throughout the procedure. Procedure: The patient was placed in the left lateral decubitis position and pre-procedure medications were administered and a bite block was placed. The endoscope was inserted into the mouth and advanced under direct vision to the third part of duodenum. A careful inspection was made as the upper endoscope was withdrawn including a retroflexed examination of the proximal stomach; Findings and interventions are described below. Findings: Larynx: Normal Esophagus: GE junction at 42 cms. A 2 cms tongue of possible Alaniz's 40 to 42 cms - biopsies were obtained. No esophagitis.. Stomach: Mild gastric erythema with a few antral erosions. Biopsies were obtained. A 1.5 cms benign appearing nodule in the antrum with a central erosion - biopsied. Grade 2 flap valve on retroflexed examination of the cardia. Duodenum: Normal bulb and descending duodenum Intervention: Biopsies as noted above COLONOSCOPY PROCEDURE NOTE Consent: Indications for the procedure and potential complications of bleeding, perforation, reaction to medications and missed diagnosis were discussed with the patient and informed consent was obtained. Instrument: Olympus PCF H 190 L variable stiffness pediatric colonoscope Monitoring: Vital signs and clinical assessment, intermittent blood pressure monitoring, continuous EKG monitoring, Pulse oximetry and Carbon Dioxide monitoring were done throughout the procedure. Colon withdrawl time was 21 minutes. Procedure: The patient was placed in the left lateral decubitis position and pre-procedure medications were administered. After a digital rectal examination of the ano-rectum, the video colonoscope was inserted into the rectum and advanced through the colon to the cecum. The colonoscope was slowly withdrawn in a retrograde panoramic fashion and the colon mucosa was carefully examined including a retroflexed view of the rectum. Findings and interventions are described below. Procedure Difficulty: : Without difficulty Findings: Terminal Ileum: Not evaluated Cecum: Normal Ascending Colon: Normal Transverse Colon: Normal Descending Colon: Moderate diverticulosis Sigmoid Colon: Moderate diverticulosis Rectum: A 2 cms sessile polyp removed with a hot snare Ano-rectum: Moderate internal hemorrhoids Colon preparation: Good after copious irrigation and fair in some areas of the colon (pt had solid food the night before) Impression and Post Procedure Diagnosis: Endoscopy Findings: ESOPHAGUS: A 2 cms tongue of possible Alaniz's 40 to 42 cms - biopsies were obtained. No esophagitis.. STOMACH: Mild gastric erythema with a few antral erosions. Biopsies were obtained. A 1.5 cms benign appearing nodule in the antrum with a central erosion - biopsied. Colonoscopy Findings: One medium sized polyp removed Moderate diverticulosis seen in the left colon Moderate hemorrhoids on retroflexed exam. Plan: Await pathology results Patient has an appointment on 02/16/23 in the [facility] with Nirmala Gaytan NP . Repeat Colonoscopy interval based on path results - in 3 years if polyp is adenomatous and 10 years if polyps are hyperplastic. Above findings were reviewed with the patient and colon polyps and diverticulosis handouts were given in the discharge area BIOPSIES SHOWED: A.? Stomach, antrum, biopsy:? Gastric antral mucosa with mild reactive gastropathy; negative for Helicobacter pylori, intestinal metaplasia and dysplasia.? B.? Stomach, antrum nodule, biopsy:? Gastric antral mucosa with reactive gastropathy; negative for Helicobacter pylori, intestinal metaplasia and dysplasia.? C.? Esophagus, distal, biopsy:? Gastric cardia-type mucosa with mild chronic inflammation; no squamous mucosa seen; negative for intestinal metaplasia and dysplasia. D.? Rectum, polypectomy:? Tubular adenoma; negative for high-grade dysplasia. Letter sent advising repeat colonoscopy in 3 years.
[2023-02-01 15:42] VITALS: BP 124/79; PULSE 79; RESP 16; TEMP 36.6; O2SAT 97
[2023-02-01 15:57] VITALS: BP 126/81; PULSE 67; RESP 16; TEMP 36.8; O2SAT 98
== END 2023-02-01 16:12 | disposition home or self-care (01) ==
PROVIDERS: PCP Internal Medicine; Visit Provider Internal Medicine Gastroenterology
PROC: (CPT 45385; principal; 2023-02-01 14:30)
DX: Z12.11 Encounter for screening for malignant neoplasm of colon (principal); D12.8 Benign neoplasm of rectum; K57.30 Diverticulosis of large intestine without perforation or abscess without bleeding; K64.8 Other hemorrhoids; K31.89 Other diseases of stomach and duodenum; K29.70 Gastritis, unspecified, without bleeding; K21.9 Gastro-esophageal reflux disease without esophagitis; E78.00 Pure hypercholesterolemia, unspecified; Z79.899 Other long term (current) drug therapy
CPT/HCPCS: 45385; 43239; 88305; 88342

== ENCOUNTER → 2023-02-01 12:58 | Outpatient (BNV) | payer OTHER, SELFPAY | PROVIDERS: PCP Internal Medicine; Visit Provider Internal Medicine Gastroenterology | DX: Z12.11 Encounter for screening for malignant neoplasm of colon (principal); K21.9 Gastro-esophageal reflux disease without esophagitis; K57.30 Diverticulosis of large intestine without perforation or abscess without bleeding; K64.8 Other hemorrhoids; K31.7 Polyp of stomach and duodenum; D12.8 Benign neoplasm of rectum | CPT/HCPCS: 43239; 45385 ==

== ENCOUNTER 2023-02-16 08:19 | Outpatient (AMB) | payer OTHER, SELFPAY ==
--- NOTE | 2023-02-16 08:24 | A.OFFVIS_ITS ---
Intake Vital Signs 02/16/23 08:30 Height 5 ft 9 in Weight 191 lb 12.835 oz BMI 28.3 BP 142/93 H Blood Pressure Location Lt brachial Position Sitting Pulse 63 Intake Visit Reasons: S/p colon-Alejandro Intake Note: Ramos presents in the office as a follow up to his procedures. CC: No concerns today just here for the results. [employer] Other Ranks Required: No Allergies tramadol [TRAMADOL] Allergy (Severe, Verified 02/16/23 08:30) RASH sea salt chips Allergy (Unknown, Uncoded 02/16/23 08:30) anaphylaxis,rash,hives HPI S/p colon-Alejandro HPI Details Assessment & Plan (1) Pre-op examination: ?Code(s): Z01.818 - Encounter for other preprocedural examination ?Plan: He had a prior scope that was negative. He had GERD that is well controlled with omeprazole, no bowel problems. There are no prior problems with anesthesia or sedation. He denies any cardiac or respiratory problems. No ID problems.? There is no known FHX or crc or polyps. ? ? ? Medications: New peg 3350-electroly olivia 236-22.74-6.74 -5.86 gram (Golyt shekhar) ?? until feca l effluent is pablo r; do not exceed a total volume of 2 ,000 mLC 240 mL? PO Q10M 1 day 4,000 mL 0RF Z12.11 - Encounter for screening for malignant neoplas m of colon ? COLONOSCOPY/EGD 02/02/23 Findings: Larynx:? Normal Esophagus:?GE junction at 42 cms.? A 2 cms tongue of possible Alaniz's 40 to 42 cms - biopsies were obtained.? No esophagitis.. Stomach:?Mild gastric erythema with a few antral erosions. Biopsies were obtained. A 1.5 cms benign appearing nodule in the antrum with a central erosion - biopsied. Grade 2 flap valve on retroflexed examination of the cardia. Duodenum:?Normal bulb and descending duodenum Findings: Terminal Ileum: Not evaluated Cecum:? Normal Ascending Colon:??Normal Transverse Colon:??Normal Descending Colon: Moderate diverticulosis Sigmoid Colon:??Moderate diverticulosis Rectum:??A 2 cms sessile polyp removed with a hot snare Ano-rectum:??Moderate internal hemorrhoids Colon preparation:? Good after copious irrigation and fair in some areas of the colon (pt had solid food the night before) Impression and Post Procedure Diagnosis: Endoscopy Findings: ESOPHAGUS: A 2 cms tongue of possible Alaniz's 40 to 42 cms - biopsies were obtained.? No esophagitis.. STOMACH: Mild gastric erythema with a few antral erosions. Biopsies were obtained. A 1.5 cms benign appearing nodule in the antrum with a central erosion - biopsied. Colonoscopy Findings: One medium sized polyp removed Moderate diverticulosis seen in the left colon Moderate hemorrhoids on retroflexed exam. Plan: Await pathology results Patient has an appointment on 02/16/23 in the GI Clinic with? Nirmala Gaytan NP . Repeat Colonoscopy interval based on path results - in 3? years if polyp is adenomatous and 10 years if polyps are hyperplastic. BIOPSY Received: 02/02/23 Diagnosis A.? Stomach, antrum, biopsy:? Gastric antral mucosa with mild reactive gastropathy; negative for Helicobacter pylori, intestinal metaplasia and dysplasia.? B.? Stomach, antrum nodule, biopsy:? Gastric antral mucosa with reactive gastropathy; negative for Helicobacter pylori, intestinal metaplasia and dysplasia.? C.? Esophagus, distal, biopsy:? Gastric cardia-type mucosa with mild chronic inflammation; no squamous mucosa seen; negative for intestinal metaplasia and dysplasia. D.? Rectum, polypectomy:? Tubular adenoma; negative for high-grade dysplasia. TODAY'S VISIT He tolerated the procedures well. I explain that the polyp was quite large and this will necessitate a 3 year follow up. The procedure was well tolerated. The results were explained and the patient is agreeable to the follow-up interval as stated. The bowel pattern has returned to normal. Education was provided to tell any 1st degree relatives about their findings to be sure that they are screened by age 45. Educated that they will be put on a recall list when it is time for their repeat scope but should they move out of state or away from the hospital they will need to remember along with their primary to repeat the procedure in a timely fashion to avoid any adverse complications. He has fairly few sx of gastric pain despite the findings, but I let him know that his omeprazole does not seem to be of sufficient strength to keep him from developing stomach ulcers - especially in the light of very frequent ibuprofen use. He is actually unsure of his exact dose of omeprazole, but it was qd. I will change him to protonix 40mg bid, and assess his response in 6 weeks. ROV 6 weeks. . 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 Review of Systems Const Denies fatigue, Denies fever(s), Denies night sweats, Denies poor appetite and Denies weight loss Eyes Details: glasses Reports requires corrective lenses ENT Reports Normal hearing present, Denies dental pain, Denies dysphagia, Denies hearing loss, Denies mouth pain, Denies odynophagia, Denies throat swelling, Denies tongue swelling and Reports other (Dentition adequate) Card Reports no additional complaints Resp Reports no additional complaints GI Denies abdominal pain, Denies melena, Denies bloating, Denies hematochezia, Denies constipation, Denies GI cramping, Denies dysphagia, Denies excessive flatus, Denies early satiety, Reports dyspepsia, Reports heartburn, Denies diarrhea, Reports nausea, Denies odynophagia, Denies vomiting and Denies hematemesis Skin/Breast Denies pruritus, Denies lesions, Denies rash and Denies jaundice Neuro Reports Normal hearing present and Denies Abnormal speech present Endo Denies fatigue Aller/Immun Denies throat swelling and Denies tongue swelling Physical Exam Vital Signs: Last Vital Signs Pulse 63 02/16/23 08:30 BP 142/93 H 02/16/23 08:30 BMI result Body Mass Index 28.3 Const General: cooperative, no acute distress, well developed and well groomed Nutritional Appearance: average body habitus and well nourished Orientation/consciousness: oriented to person, oriented to place and oriented to time Limitations: No language barrier HEENT Head: Yes normocephalic and Yes atraumatic Eyes General: appearance normal, both eyes and all related structures Pupils: Equal, round and reactive pupils present Neck Neck: Yes normal visual inspection and Yes no lymphadenopathy Thyroid: Thyroid normal Resp Effort & Inspection: normal respiratory effort and able to speak in complete sentences Auscultation: clear to auscultation bilaterally Cardio Rate: regular rate Rhythm: regular rhythm Heart sounds: Normal, physiologic split S2 sound present Peripheral pulses: radial pulses present and posterior tibial pulses present GI Inspection: No distended and No Abdominal panniculus present Palpation (GI): Soft to palpation, nontender, no guarding, not rigid and No hepatosplenomegaly present Percussion: Yes normal to percussion Auscultation: normal bowel sounds Rectal Exam - Male: Yes deferred Skin General skin exam: no rashes or lesions noted, turgor normal, skin not dry, no jaundice, No spider nevi and no striae Rashes: no rashes Nails: normal Neuro General: oriented to person, oriented to place and oriented to time Cranial nerves: Yes Equal, round and reactive pupils present and Yes Normal hearing present Speech: No Abnormal speech present Extrem General: Yes normal to inspection, No clubbing, No cyanosis and No edema Psych Appearance: grossly normal and well kempt Mental Status: mental status grossly normal Speech and movement: Normal speech and movement present Affect: normal affect Attitude: cooperative Thought process: Normal thought process present and not confabulating Thought content: Normal thought content present Insight: Fair insight present (Psych) Judgement: Fair judgement present (Psych) Results Reviewed Results Reviewed: COLONOSCOPY/EGD 02/02/23 Findings: Larynx:? Normal Esophagus:?GE junction at 42 cms.? A 2 cms tongue of possible Alaniz's 40 to 42 cms - biopsies were obtained.? No esophagitis.. Stomach:?Mild gastric erythema with a few antral erosions. Biopsies were obtained. A 1.5 cms benign appearing nodule in the antrum with a central erosion - biopsied. Grade 2 flap valve on retroflexed examination of the cardia. Duodenum:?Normal bulb and descending duodenum Findings: Terminal Ileum: Not evaluated Cecum:? Normal Ascending Colon:??Normal Transverse Colon:??Normal Descending Colon: Moderate diverticulosis Sigmoid Colon:??Moderate diverticulosis Rectum:??A 2 cms sessile polyp removed with a hot snare Ano-rectum:??Moderate internal hemorrhoids Colon preparation:? Good after copious irrigation and fair in some areas of the colon (pt had solid food the night before) Impression and Post Procedure Diagnosis: Endoscopy Findings: ESOPHAGUS: A 2 cms tongue of possible Alaniz's 40 to 42 cms - biopsies were obtained.? No esophagitis.. STOMACH: Mild gastric erythema with a few antral erosions. Biopsies were obtained. A 1.5 cms benign appearing nodule in the antrum with a central erosion - bi opsied. Colonoscopy Findings: One medium sized polyp removed Moderate diverticulosis seen in the left colon Moderate hemorrhoids on retroflexed exam. Plan: Await pathology results Patient has an appointment on 02/16/23 in the GI Clinic with? Nirmala Gaytan NP . Repeat Colonoscopy interval based on path results - in 3? years if polyp is adenomatous and 10 years if polyps are hyperplastic. BIOPSY Received: 02/02/23 Diagnosis A.? Stomach, antrum, biopsy:? Gastric antral mucosa with mild reactive gastropathy; negative for Helicobacter pylori, intestinal metaplasia and dysplasia.? B.? Stomach, antrum nodule, biopsy:? Gastric antral mucosa with reactive gastropathy; negative for Helicobacter pylori, intestinal metaplasia and dysplasia.? C.? Esophagus, distal, biopsy:? Gastric cardia-type mucosa with mild chronic inflammation; no squamous mucosa seen; negative for intestinal metaplasia and dysplasia. D.? Rectum, polypectomy:? Tubular adenoma; negative for high-grade dysplasia. Assessment & Plan Assessment & Plan (1) Tubular adenoma of colon: Comment: 2022=1 2 cm TA repeat 3 years aeb Code(s): D12.6 - Benign neoplasm of colon, unspecified Plan: He tolerated the procedures well. I explain that the polyp was quite large and this will necessitate a 3 year follow up. The procedure was well tolerated. The results were explained and the patient is agreeable to the follow-up interval as stated. The bowel pattern has returned to normal. Education was provided to tell any 1st degree relatives about their findings to be sure that they are screened by age 45. Educated that they will be put on a recall list when it is time for their repeat scope but should they move out of state or away from the hospital they will need to remember along with their primary to repeat the procedure in a timely fashion to avoid any adverse complications. He has fairly few sx of gastric pain despite the findings, but I let him know that his omeprazole does not seem to be of sufficient strength to keep him from developing stomach ulcers - especially in the light of very frequent ibuprofen use. He is actually unsure of his exact dose of omeprazole, but it was qd. I will change him to protonix 40mg bid, and assess his response in 6 weeks. ROV 6 weeks. . (2) Erosive gastritis: Code(s): K29.60 - Other gastritis without bleeding (3) History of esophagogastroduodenoscopy (EGD): Code(s): Z98.890 - Other specified postprocedural states (4) Hx of colonoscopy: Code(s): Z98.890 - Other specified postprocedural states Medications: New pantoprazole (Protonix) 40 mg PO BID 30 days 60 tabs 3RF K29.60 - Other gastritis without bleeding Coding Level of Care Code Est Pt Level 4 (19144) Diagnoses Tubular adenoma of colon D12.6 Erosive gastritis K29.60 History of esophagogastroduodenoscopy (EGD) Z98.890 Hx of colonoscopy Z98.890
[2023-02-16 08:30] VITALS: BP 142/93; PULSE 63; BMI 28.3
== END 2023-02-16 08:40 | disposition home or self-care (01) ==
PROVIDERS: PCP Internal Medicine; Visit Provider Nurse Practitioner
DX: D12.6 Benign neoplasm of colon, unspecified (principal); K29.60 Other gastritis without bleeding; Z98.890 Other specified postprocedural states
CPT/HCPCS: 99214

== ENCOUNTER → 2023-02-16 08:19 | Outpatient (BNVA) | payer OTHER, SELFPAY | PROVIDERS: PCP Internal Medicine; Visit Provider Nurse Practitioner | DX: K29.60 Other gastritis without bleeding (principal); D12.6 Benign neoplasm of colon, unspecified; Z98.890 Other specified postprocedural states | CPT/HCPCS: 99212 ==

== ENCOUNTER 2023-03-30 07:58 | Outpatient (AMB) | payer OTHER, SELFPAY ==
--- NOTE | 2023-03-30 08:07 | A.OFFVIS_ITS ---
Intake Vital Signs 03/30/23 08:08 Height 5 ft 9 in Weight 196 lb 3.382 oz BMI 29.0 BP 147/88 H Blood Pressure Location Lt brachial Position Sitting Pulse 65 Intake Visit Reasons: 6 week f/u Erosive Gastritis Intake Note: Ramos presents in the office as a 6 week follow up. CC: He states that he not having any concerns today! Allergies tramadol [TRAMADOL] Allergy (Severe, Verified 03/30/23 08:09) RASH millet Allergy (Mild, Uncoded 03/30/23 08:10) Unknown sea salt chips Allergy (Unknown, Uncoded 03/30/23 08:10) anaphylaxis,rash,hives HPI 6 week f/u Erosive Gastritis HPI Details Assessment & Plan (1) Tubular adenoma of colon: Comment: 2022=1 2 cm TA repeat 3 years aeb Code(s): D12.6 - Benign neoplasm of colon, unspecified Plan: He tolerated the procedures well. I explain that the polyp was quite large and this will necessitate a 3 year follow up. The procedure was well tolerated. The results were explained and the patient is agreeable to the follow-up interval as stated. The bowel pattern has returned to normal. Education was provided to tell any 1st degree relatives about their findings to be sure that they are screened by age 45. Educated that they will be put on a recall list when it is time for their repeat scope but should they move out of state or away from the hospital they will need to remember along with their primary to repeat the procedure in a timely fashion to avoid any adverse complications. He has fairly few sx of gastric pain despite the findings, but I let him know that his omeprazole does not seem to be of sufficient strength to keep him from developing stomach ulcers - especially in the light of very frequent ibuprofen use. He is actually unsure of his exact dose of omeprazole, but it was qd. I will change him to protonix 40mg bid, and assess his response in 6 weeks. ROV 6 weeks. . (2) Erosive gastritis: Code(s): K29.60 - Other gastritis without bleeding (3) History of esophagogastroduodenoscop y (EGD): Code(s): Z98.890 - Other specified postprocedural states (4) Hx of colonoscopy: Code(s): Z98.890 - Other specified postprocedural states Medications: New pantoprazole (Prot jag) 40 mg PO BID 30 d ays 60 tabs 3RF K29.60 - Other gas tritis without ble eding TODAY'S VISIT He is feeling better with the pantoprazole, but was only taking it qd. He misunderstood the directions, he is unsure if he has enough for bid. I ask him to check and call me, if not we will add famotidine for 6 weeks. Since the erosions were small and he has few sx (except stomalch burning and dyspepsia) I don't think repeat EGD is needed. He takes a lot of naproxen for back pain. ROV 8 weeks. 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 Review of Systems Const Denies fatigue, Denies fever(s), Denies night sweats, Denies poor appetite and Denies weight loss Eyes Details: glasses Reports requires corrective lenses ENT Reports Normal hearing present, Denies dental pain, Denies dysphagia, Denies hearing loss, Denies mouth pain, Denies odynophagia, Denies throat swelling, Denies tongue swelling and Reports other (Dentition adequate) Card Reports no additional complaints Resp Reports no additional complaints GI Denies abdominal pain, Denies melena, Denies bloating, Denies hematochezia, Denies constipation, Denies GI cramping, Denies dysphagia, Denies excessive flatus, Denies early satiety, Reports heartburn, Denies diarrhea, Denies nausea, Denies odynophagia, Denies vomiting and Denies hematemesis Skin/Breast Denies pruritus, Denies lesions, Denies rash and Denies jaundice Neuro Reports Normal hearing present and Denies Abnormal speech present Endo Denies fatigue Aller/Immun Denies throat swelling and Denies tongue swelling Physical Exam Vital Signs: BMI result Body Mass Index 29.0 Const General: cooperative, no acute distress, well developed and well groomed Nutritional Appearance: well nourished and overweight Orientation/consciousness: oriented to person, oriented to place and oriented to time Limitations: No language barrier HEENT Head: Yes normocephalic and Yes atraumatic Eyes General: appearance normal, both eyes and all related structures Pupils: Equal, round and reactive pupils present Neck Neck: Yes normal visual inspection and Yes no lymphadenopathy Thyroid: Thyroid normal Resp Effort & Inspection: normal respiratory effort and able to speak in complete sentences Auscultation: clear to auscultation bilaterally Cardio Rate: regular rate Rhythm: regular rhythm Heart sounds: Normal, physiologic split S2 sound present Peripheral pulses: radial pulses present and posterior tibial pulses present GI Inspection: No distended and No Abdominal panniculus present Palpation (GI): Soft to palpation, nontender, no guarding, not rigid and No hepatosplenomegaly present Percussion: Yes normal to percussion Auscultation: normal bowel sounds Rectal Exam - Male: Yes deferred Skin General skin exam: no rashes or lesions noted, turgor normal, skin not dry, no jaundice, No spider nevi and no striae Rashes: no rashes Nails: normal Neuro General: oriented to person, oriented to place and oriented to time Cranial nerves: Yes Equal, round and reactive pupils present and Yes Normal hearing present Speech: No Abnormal speech present Extrem General: Yes normal to inspection, No clubbing, No cyanosis and No edema Psych Appearance: grossly normal and well kempt Mental Status: mental status grossly normal Speech and movement: Normal speech and movement present Affect: normal affect Attitude: cooperative Thought process: Normal thought process present and not confabulating Thought content: Normal thought content present Insight: Fair insight present (Psych) Judgement: Fair judgement present (Psych) Assessment & Plan Assessment & Plan (1) Erosive gastritis: Code(s): K29.60 - Other gastritis without bleeding Plan: He is feeling better with the pantoprazole, but was only taking it qd. He misunderstood the directions, he is unsure if he has enough for bid. I ask him to check and call me, if not we will add famotidine for 6 weeks. Since the erosions were small and he has few sx (except stomalch burning and dyspepsia) I don't think repeat EGD is needed. He takes a lot of naproxen for back pain. ROV 8 weeks. (2) Tubular adenoma of colon: Comment: 2022=1 2 cm TA repeat 3 years aeb Code(s): D12.6 - Benign neoplasm of colon, unspecified Coding Level of Care Code Est Pt Level 3 (86156) Diagnoses Erosive gastritis K29.60 Tubular adenoma of colon D12.6
[2023-03-30 08:08] VITALS: BP 147/88; PULSE 65; BMI 29.0
== END 2023-03-30 08:31 | disposition home or self-care (01) ==
PROVIDERS: PCP Internal Medicine; Visit Provider Nurse Practitioner
DX: K29.60 Other gastritis without bleeding (principal); D12.6 Benign neoplasm of colon, unspecified
CPT/HCPCS: 99213

== ENCOUNTER → 2023-03-30 07:58 | Outpatient (BNVA) | payer OTHER, SELFPAY | PROVIDERS: PCP Internal Medicine; Visit Provider Nurse Practitioner | DX: K29.60 Other gastritis without bleeding (principal); D12.6 Benign neoplasm of colon, unspecified; Z98.890 Other specified postprocedural states | CPT/HCPCS: 99212 ==

== ENCOUNTER 2024-05-03 21:21 | Emergency (ER) | payer OTHER, SELFPAY ==
--- NOTE | ~2024-05-03 | CT_ITS ---
EXAMINATION: CT HEAD WITHOUT CONTRAST CLINICAL INFORMATION: Headache. COMPARISON: None available. TECHNIQUE: Contiguous axial imaging was performed from the skull base to vertex without intravenous administration of contrast. This CT examination was performed using dose optimization techniques as appropriate, variously including the following: *Automated exposure control *Adjustment of mA and/or kV according to patient size (this includes techniques or standardized protocols for targeted exams where dose is matched to indication/reason for exam; i.e. extremities or head) *Use of iterative reconstruction technique DLP: 735 mGy-cm FINDINGS: The lateral, third and fourth ventricles are normally outlined. The cortical sulci and basal cisterns are normally outlined as well. There is no acute territorial defects, hemorrhage or midline shift. The extra-axial spaces are unremarkable. Calvarium/scalp: Intact. Maxillofacial sinuses and mastoids: Clear as visualized. CT/CT head/brain wo IV con IMPRESSION: No acute intracranial pathology. Electronically signed by: Kb Abraham MD 05/03/2024 11:47 PM EDT
[2024-05-03 21:25] VITALS: BP 176/89; PULSE 63; RESP 19; TEMP 36.6; O2SAT 98; BMI 27.5
[2024-05-04 00:43] VITALS: BP 163/87; PULSE 59; RESP 16; TEMP 36.8; O2SAT 95
--- NOTE | 2024-05-04 01:31 | ED.GENADULT ---
HPI - General Adult General Chief complaint: Headache Stated complaint: headache Time Seen by Provider: 05/04/24 01:31 History of Present Illness ED Provider: Odalis PUCKETT narrative: The patient is a 58-year-old male with a history of migraine headaches. He presents today with a headache that he says has been present for 29 days. He says that the headache has not been associated with any fevers, sweats, chills. It is not associated with any numbness, tingling, weakness, burning in his extremities or any other neurological symptoms. He says the headache is similar to previous migraine headaches but of longer duration. Related Data Home Medications ?Medication ?Instructions ?Recorded ?Confirmed bisoprolol fumarate 5 mg tablet 5 mg PO DAILY 02/27/22 02/01/23 bupropion HCl 150 mg 24 hr tablet, 150 mg PO QAM 02/27/22 02/01/23 extended release fluticasone propionate 50 2 spray intranasal BID 02/27/22 02/01/23 mcg/actuation nasal spray,suspension gabapentin 300 mg capsule 600 mg PO BEDTIME 02/27/22 02/01/23 ketotifen fumarate 0.025 % (0.035 2 drp ophthalmic (eye) DAILY 02/27/22 02/01/23 %) eye drops nortriptyline 10 mg capsule 10 mg PO BID 02/27/22 02/01/23 sertraline 100 mg tablet 100 mg PO BID 02/27/22 02/01/23 trazodone 100 mg tablet 1 mg PO BEDTIME 02/27/22 02/01/23 ubidecarenone-omega 3-vit E 25 1 cap PO DAILY 05/26/22 02/01/23 mg-150 (90-60) mg-200 unit capsule (Co [id number] E-Fish Oil) carboxymethylcellulose sodium 0.5 drp ophthalmic (eye) 03/30/23 % eye drops (Refresh Tears) magnesium oxide 420 mg tablet 420 mg PO QAM 03/30/23 simvastatin 10 mg tablet 10 mg PO QDAY 03/30/23 Previous Rx's ?Medication ?Instructions ?Recorded naproxen 500 mg tablet 500 mg PO BID PRN pain #20 tabs 05/29/22 pantoprazole 40 mg tablet,delayed 40 mg PO BID 30 days #60 tabs 08/01/23 release (Protonix) Allergies Allergy/AdvReac Type Severity Reaction Status Date / Time tramadol [TRAMADOL] Allergy Severe RASH Verified 05/03/24 21:28 millet Allergy Mild Unknown Uncoded 05/03/24 21:28 sea salt chips Allergy Unknown anaphylaxis Uncoded 05/03/24 21:28 ,rash,hives Review of Systems Review of Systems: Yes all other systems are reviewed and are negative [facility] Past Medical History Medical History Migraines Hypertension Surgical History Hx of cardiac catheterization H/O vasectomy Social History Social History Alcohol intake: never Patient Tobacco Use Status: Never used Tobacco Smoked in Last 30 Days: No Advance Directives: No Advance Directives Information Provided: Yes Do you have a plan to hurt others: No Plan Current occupational status: unemployed 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 He was in a darkened room. He did not seem in over discomfort and he did not appear toxic in any way. HENMT Other: The face is symmetrical and unremarkable in appearance. Mucous membranes are moist. The posterior pharynx is normal. Eyes Other: Pupils are round equal. Conjunctivae are clear. Extraocular movements intact. General: appearance normal, both eyes and all related structures Neck Other: No cervical adenopathy. The neck is supple. He can touch his chin to his chest easily. Resp Effort & Inspection: normal respiratory effort Auscultation: clear to auscultation bilaterally Cardio Rate: regular rate Rhythm: regular rhythm Heart sounds: S1 normal heart sound present and S2 normal heart sound present GI Other: Abdomen is soft and nontender Skin Other: skin is dry and unremarkable. No rash. Neuro Other: The patient is awake and alert with normal mental status. He is oriented and appropriate. Cranial nerves 2-12 were intact. His neck is supple. He moves his extremities normally and appropriately. He seems nontoxic and neurologically intact. Extrem Other: No peripheral edema. Medications Administered Discontinued Medications Generic Name Dose Route Start Last Admin Trade Name Nat PRN Reason Stop Dose Admin Dexamethasone Sodium Phosphate 4 mg 05/04/24 01:34 05/04/24 01:58 Dexamethasone Sod Phosphate 4 Mg/Ml Vial IVPUSH 05/04/24 01:35 4 mg ONCE ONE Administration Diphenhydramine HCl 25 mg 05/04/24 01:34 05/04/24 01:57 Diphenhydramine Hcl 50 Mg/Ml Vial IVPUSH 05/04/24 01:35 25 mg ONCE ONE Administration Diphenhydramine HCl 25 mg 05/04/24 03:00 05/04/24 03:23 Diphenhydramine Hcl 50 Mg/Ml Vial IVPUSH 05/04/24 03:01 25 mg ONCE ONE Administration Sodium Chloride 1,000 mls @ 999 mls/hr 05/04/24 03:00 05/04/24 03:21 Ns IV 05/04/24 04:00 999 mls/hr .Q1H1M NAVDEEP Administration Ketorolac Tromethamine 10 mg 05/04/24 01:34 05/04/24 01:58 Ketorolac Tromethamine 15 Mg/Ml Vial IVPUSH 05/04/24 01:35 10 mg ONCE ONE Administration Ketorolac Tromethamine 10 mg 05/04/24 03:00 05/04/24 03:22 Ketorolac Tromethamine 15 Mg/Ml Vial IVPUSH 05/04/24 03:01 10 mg ONCE ONE Administration Metoclopramide HCl 10 mg 05/04/24 01:34 05/04/24 01:58 Metoclopramide Hcl 10 Mg/2 Ml Vial IVPUSH 05/04/24 01:35 10 mg ONCE ONE Administration Prochlorperazine Edisylate 10 mg 05/04/24 03:00 05/04/24 03:22 Prochlorperazine Edisylate 10 Mg/2 Ml Vial IVPUSH 05/04/24 03:01 10 mg ONCE ONE Administration Medical Decision Making Medical Decision Making [facility] Narrative: The patient is a 58-year-old male who presents for evaluation of a headache. He says he has had a headache continuously for 29 days. He says that he has a history of migraine headaches and he has had similar headaches in the past but never for so long. A CT scan of the head had been ordered at triage. the head CT shows no acute findings. Clinically the patient does not have any neurological deficit or mental status changes. He has a supple neck. He is afebrile. His blood pressures are mildly elevated but otherwise vital signs are unremarkable. My overall impression is that this headache is not representing any kind of acutely dangerous process. He was treated symptomatically with migraine treatment. He did not get much relief from an initial round of treatment With metoclopramide, diphenhydramine, and ketorolac. He was subsequently given a 2nd dose of ketorolac as well as prochlorperazine and additional diphenhydramine and IV fluids. He was observed in ultimately seemed to feel considerably better at which point he was discharged. He should follow up his primary care doctor or return if worse. Discharge Plan Discharge Clinical Impression: Headache Patient Disposition: Home, Self-Care Additional Instructions: Please rest and take it easy. Please resume any of your normal medications. The CT scan of your head did not show any concerning findings. Please contact your regular doctor to make a follow up appointment to discuss this headache further. Return to the emergency room if significantly worse. Prescriptions: No Action naproxen 500 mg tablet 500 mg PO BID PRN (Reason: pain) Qty: 20 0RF Co [id number]-Ltjwtag E-Fish Oil 25-150-200 mg-mg-unit capsule 1 cap PO DAILY bupropion HCl 150 mg tablet extended release 24 hr 150 mg PO QAM trazodone 100 mg tablet 1 mg PO BEDTIME sertraline 100 mg tablet 100 mg PO BID fluticasone propionate 50 mcg/actuation spray,suspension 2 spray intranasal BID gabapentin 300 mg capsule 600 mg PO BEDTIME nortriptyline 10 mg capsule 10 mg PO BID bisoprolol fumarate 5 mg tablet 5 mg PO DAILY ketotifen fumarate 0.025 % (0.035 %) drops 2 drp ophthalmic (eye) DAILY pantoprazole [Protonix] 40 mg tablet,delayed release (DR/EC) 40 mg PO BID 30 Days Qty: 60 3RF carboxymethylcellulose sodium [Refresh Tears] 0.5 % drops ophthalmic (eye) magnesium oxide 420 mg tablet 420 mg PO QAM simvastatin 10 mg tablet 10 mg PO QDAY Referrals: Shane Kline MD [Physician] - (Headache) Interventions: ED Discharge Assessment Last Done: 05/04/24 05:03 Discharge Date/Time: 05/04/24 05:04 Print Language: German
[2024-05-04] MEDS: diphenhydrAMINE HCL 50 MG/ML VIAL 25 MG IVPUSH ×2 (01:57→03:23)
[2024-05-04] MEDS: Ketorolac Tromethamine 15 MG/ML VIAL 10 MG IVPUSH ×2 (01:58→03:22)
[2024-05-04] MEDS: dexAMETHasone sod phosphate 4 MG/ML VIAL IVPUSH (01:58)
[2024-05-04] MEDS: Metoclopramide HCl 10 MG/2 ML VIAL IVPUSH (01:58)
[2024-05-04] MEDS: 0.9 % Sodium Chloride 1,000 ML 999 ML IV (03:21)
[2024-05-04] MEDS: Prochlorperazine Edisylate 10 MG/2 ML VIAL IVPUSH (03:22)
[2024-05-04 04:39] VITALS: BP 146/95; PULSE 53; RESP 14; TEMP 36.7; O2SAT 94
[2024-05-04 05:03] VITALS: BP 146/95; PULSE 53; RESP 14; TEMP 36.7; O2SAT 94
== END 2024-05-04 05:04 | disposition home or self-care (01) ==
PROVIDERS: Emergency Provider Emergency Medicine
DX: R51.9 Headache, unspecified (principal); Z79.899 Other long term (current) drug therapy
CPT/HCPCS: 70450; 96374; 96375; 96376; 99284; 99285; J0737; J1100; J1200; J1885; J2765

== ENCOUNTER 2024-08-31 19:50 | Outpatient (REF) | payer OTHER, SELFPAY ==
--- NOTE | ~2024-08-31 | MR_ITS ---
EXAMINATION: MR BRAIN WITHOUT IV CONTRAST HISTORY: Headache TECHNIQUE: Sagittal T1, and axial T1, FLAIR, T2, gradient echo, and diffusion weighted MR images of the brain were obtained. COMPARISON: Correlation is made with an unenhanced head CT dated 05/03/2024. FINDINGS: A few scattered tiny T2 hyperintense foci are noted on the FLAIR and T2-weighted images which are nonspecific, but can be seen in the setting of small vessel ischemic disease. The brain parenchyma is otherwise unremarkable, demonstrating normal cruz/white differentiation. There is no mass effect or midline shift. The ventricular system is normal in size and configuration. No intra or extra-axial fluid collections are identified. There are no foci of restricted diffusion. Normal vascular flow voids are noted in the basilar and carotid arteries. The visualized paranasal sinuses are clear. MR/MR head/brain wo con IMPRESSION: No acute intracranial abnormality. Electronically signed by: Ezekiel Jean MD 09/01/2024 07:38 AM [facility]
--- OUTSIDE RECORDS SUMMARY | 2024-08-31 19:53 | XMS_ITS ---
Author Name [facility] [place] [facility] [place] Address [address] [place] [address] Care Team Providers Care Chute Tender Name Role Phone HIREN TUTTLE Primary Care Provider Unav ailable Insurance Providers: All historical and current Section Date Range: From patient's date of to the date document was created. This section includes the names of all active insurance providers for the patient. Insurance Provider Type of Coverage Plan Name Start of Policy Coverage End of Policy Coverage Group Number Member ID Insurance Provider's Telephone Number Policy Denson's Name Patient's Relationship to Policy Denson MEDICAID MEDICAID [facility] Jul 19, 2019 MEDICAI D [id number] Braxton ANDRADE PATIENT MEDICAID MEDICAID MEDIC AID Jul 19, 2015 DO NOT BILL [id number] Braxton ANDRADE PATIENT Selected Encounter This section includes the information on record at [place] for the Encounter. Date/Time Encounter Type Encounter Description Reason Pro vider Source Jun 23, 2024 02:00 PM Outpatient Encounter [facility] Encounter Template Text not used by [place] Plan of Treatment: Future Appointments (+ 6 months) and Future Tests (+/- 45 days) The Plan of Treatment section includes future care activities for the patient from all [facility] treatmentfacilities. This section includes future appointments and future orders which are active, pending or scheduled. Future Appointments This section includes appointments that were scheduled to occur 6 months from the date of the Encounter, up to a maximum of 20 appointments. The data comes from all [place] treatment facilities. Appointment Date/Time Appointment Type Appointme nt Facility Name Jul 05, 2024 08:30 AM AMBULATORY [facility] [place] [facility] Jul 06, 2024 11:00 AM AM[facility]ULAT[facility] [place] [facility] Jul 25, 2024 11:30 AM AMBULATORY [facility] [place] [facility] Aug 08, 2024 10:00 AM AMBULATORY [facility] [place] [facility] Aug 15, 2024 01:00 PM AMBULATORY [facility] NEUROLOGY [facility] [place] [facility] Aug 15, 2024 01:00 PM AMBULATORY - [facility]UROLOGY [facility] Sep 05, 2024 10:00 AM AMBULATORY [facility] [place] [facility] Sep 14, 2024 09:30 AM [facility]ICINE [facility] [place] [facility] Sep 19, 2024 10:00 AM AM[facility]ULATORY [facility] [place] [facility] November 29, 2024 10:00 AM AM[facility]ULATORY - [facility]ICINE [facility] [place] [facility] Social History: Smoking Status (Most current) and Tobacco Use (All prior to encounter date) This section includes the most current, and the historical, smoking and tobacco- related health factors from the [place] facility where the Encounter took place. Current Smoking Status This section includes the most current smoking, or tobacco-related health factor, from the [place] facility where the Encounter took place. Date/Time Current Smoking Status Comment Facil ity May 24, 2024 11:00 AM VA-TOBACCO NEVER USED [place] [facility] [place] [facility] Tobacco Use History This section includes a history of the smoking, or tobacco-related health factors, that were collected on or before the date of the Encounter. The data comes from the [place] facility where the Encounter took place. Date/Time Smoking Status/Tobacco Use Comment F acility May 17, 2023 11:30 AM VA-TOBACCO NEVER USED [facility] [place] [facility] Mar 26, 2021 11:00 AM VA-TOBACCO NEVER USED [facility] [place] [facility] Apr 16, 2020 09:00 AM [facility] Jan 10, 2019 11:57 AM [facility]BACCO [facility] Mar 31, 2018 03:49 PM LIFETIME NON-TOBACCO USER [facility] Mar 08, 2017 02:54 PM LIFETIME NON-TOBACCO USER [facility] Pathology Reports: +/- 30 days of the encounter Pathology Reports For cases when an order for pathology services may have been completed prior to the date of the Encounter, the report list includes the Pathology Reports that were completed up to 30 days before dateof the Encounter. For cases when an order for pathology services may have been completed after the date of the Encounter, the report list also includes the Pathology Reports that were completed up to30 days after date of the Encounter. The data comes from all [facility] facilities. Date/Time Pathology Report Provider Source May 24, 2024 12:16 PM LR MICROBIOLOGY RE PORT: Reporting Lab: [facility] [CLIA# [id number]] [address] [place] [id number] Accession [UID]: [id number] [[id number]] Received: May 24, 2024@12:16 Collection sample: URINE CLEAN CATCH Collection date: May 24, 2024 12:16 Site/Specimen: URINE Provider: HIREN TUTTLE Comment on specimen: cc Test(s) ordered: URINE CULTURE(MWROX).......... completed: May 30, 2024 07:58 * BACTERIOLOGY FINAL REPORT => May 30, 2024 07:58 TECH CODE: [id number] Bacteriology Remark(s): >10,000 - <25,000 CFU/ML MIXED GRAM POSITIVE MELISSA No further workup =--=--=--=--=--=--=--=-- =--=--=--=--=--=--=--=-- =--=--=--=--=--=--=--=-- =--=-- Performing Laboratory: Bacteriology Report Performed By: [facility] [CLIA# [id number]] [address] [place] [address] [facility] Encounter Notes: All associated encounter notes This section contains the clinical notes associated to the Encounter. Date/Time Encounter Note(s) Provider Source Jun 26, 2024 02:06 PM ADMINISTRATIVE NOTE: LOCAL TITLE: ADMINISTRATIVE RECALL NOTE STANDARD TITLE: ADMINISTRATIVE NOTE DATE OF NOTE: JUN 26, 2024@14:06 ENTRY DATE: JUN 26, 2024@14:06:59 AUTHOR: INGRIS MARCIAL EXP COSIGNER: URGENCY: STATUS: COMPLETED ADMINISTRATIVE RECALL NOTE Has ADDENDA RTC orders: Unable to contact patient: Attempts to contact: 1st attempt: Left voicemail 2nd attempt: Letter mailedDisposition onDe 3rd attempt: 4th attempt: /chris MARCIAL LENDING MANAGER Signed: 06/26/2024 14:07 06/27/2024 ADDENDUM STATUS: COMPLETED RTC orders: Unable to contact patient: Attempts to contact: 1st attempt: Left voicemail 2nd attempt: Letter mailedDisposition onDe 3rd attempt: Left vm 4th attempt: /ankit/ INGRIS MARCIAL LENDING MANAGER Signed: 06/27/2024 12:52 07/10/2024 ADDENDUM STATUS: COMPLETED RTC orders: Unable to contact patient: Attempts to contact: 1st attempt: Left voicemail 2nd attempt: Letter mailedDisposition onDe 3rd attempt: Left vm 4th attempt: Voicemail full /ankit/ INGRIS MARCIAL LENDING MANAGER Signed: 07/10/2024 09:14 INGRIS MARCIAL [facility] [place] [facility] Jun 23, 2024 02:11 PM CLERICAL NOTE: LOCAL TITLE: APPOINTMENT NO SHOW STANDARD TITLE: CLERICAL NOTE DATE OF NOTE: JUN 23, 2024@14:11 ENTRY DATE: JUN 23, 2024@14:11:27 AUTHOR: KINGS [place] EXP COSIGNER: URGENCY: STATUS: COMPLETED Patient Name: NAV ANDRADE Patient SSN: [id number] Date and time of Appointment No show : 06/23/24 14:00 PATIENT PHONE - PHONE NUMBER [CELLULAR] - Patient's medical record was reviewed. Follow-up actions were determined and initiated: Please check/complete as applies: [X]Telephoned Directly [ ]Re-scheduled for next available appt [ ]Sent a N0-show letter ( must call for appointment) [ ]Other (Emergent/Overbook, etc.): Additional Comments: Vet was not present for F2F appt. Called, to which he did respond. Explains that he tried to cancel the appt a couple of minutes ago as he was having issues with his vehicle. Expressed that overall, he is doing better since he taking all of his medication. aMSA, please reach out to this vet to reschedule this appt. Thank you! Future Clinic Visits 07/04/2024 11:00 CWM/NO/MHC/COOK 07/11/2024 14:00 CWM V01 HCOE 02 ADMIN 07/25/2024 11:30 CWM/NO/MHC/COOK 08/08/2024 10:00 CWM/NO/MHC/COOK 08/22/2024 10:00 CWM/NO/MHC/COOK 09/05/2024 10:00 CWM/NO/MHC/COOK 09/19/2024 10:00 CWM/NO/MHC/COOK 11/29/2024 10:00 CWM/NO/PACT 4 01/03/2025 13:00 NHM/OPTOMETRY/RIOS/ /ankit/ Kings Harris PharmD Clinical Pharmacist Practitioner Signed: 06/23/2024 14:12 Receipt Acknowledged By: 06/26/2024 14:06 /ankit/ INGRIS MARCIAL LENDING MANAGER [facility]
--- OUTSIDE RECORDS SUMMARY | 2024-08-31 19:53 | XMS_ITS | Encounter Summary ---
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 Date/Time Encounter Type Encounter Description Reason Provider Source Jun 20, 2024 09:30 AM PSYTX W PT [facility] ICD-10-CM F33.1 Major depressive disorder, recurrent, moderate MARCELLA OSORIO Encounter Template Text not used by [facility] Assessments - Encounter Diagnoses This section includes the primary and secondary diagnoses documented for the Encounter. Date/Time Primary/Secondary Diagnosis Diagnosis Name Provider Source Jun 20, 2024 12:41 PM PRIMARY Major depressive disorder, recurrent, moderate COOK,MARCELLA A [facility] [place] [facility] Plan of Treatment: Future Appointments (+ 6 months) and Future Tests (+/- 45 days) The Plan of Treatment section includes future care activities for the patient from all [place] treatmentfacilities. This section includes future appointments and future orders which are active, pending or scheduled. Future Appointments This section includes appointments that were scheduled to occur 6 months from the date of the Encounter, up to a maximum of 20 appointments. The data comes from all [place] treatment facilities. Appointment Date/Time Appointment Type Appointme nt Facility Name Jun 23, 2024 02:00 PM [place] [facility] [place] [facility] Jul 05, 2024 08:30 AM [place] [facility] [place] [facility] Jul 06, 2024 11:00 AM [facility] [place] [facility] [place] [facility] Jul 25, 2024 11:30 AM [facility] [facility] [place] [facility] Aug 08, 2024 10:00 AM [facility] [facility] [place] [facility] Aug 15, 2024 01:00 PM [place] [facility] [place] [facility] Aug 15, 2024 01:00 PM AMBULATORY - NEUROLOGY [facility] Sep 05, 2024 10:00 AM [facility] [place] [facility] [place] [facility] Sep 14, 2024 09:30 AM [facility] [place] [facility] [place] [facility] Sep 19, 2024 10:00 AM [place] [facility] [place] [facility] November 29, 2024 10:00 AM AMBULATORY - MEDICINE [facility] [place] [facility] Lab Results: +/- 30 days of the encounter This section includes the Chemistry and Hematology Lab Results on record with [place] for the patient. Radiology Reports and Pathology Reports are provided separately, in subsequent sections. Lab Results This section contains the Chemistry/Hematology Results that were resulted 30 days before or 30 daysafter the date of the Encounter. Date/Time Source Result Type Result - Unit Interpretation Reference Range Comment May 24, 2024 12:16 PM [place] [facility] [place] [facility] TSH Specimen Type: SERUM No comment entered. Ordering Provider: HIREN TUTTLE Report Released Date/Time: May 24, 2024 11:32 AM Reporting Lab: [address] [id number] Performing Lab: [address] [address] TSH 1.52 u[IU]/mL 0.35-5.00 May 24, 2024 12:16 PM [facility] LIVER FUNCTION Specimen Type: SERUM No comment entered. Ordering Provider: HIREN TUTTLE Report Released Date/Time: May 24, 2024 11:32 AM Reporting Lab: [address] [address] Performing Lab: [address] [address] PROTEIN,TOTAL 6.8 g/dL 6.0-8.3 ALBUMIN 3.9 g/dL 3.5-5.0 ALKALINE PHOSPHATASE 80 U/L 40-150 AST 19 U/L 5-34 ALT 21 U/L BILIRUBIN, TOTAL 0.5 mg/dL 0.2-1.2 May 24, 2024 12:16 PM [facility] PSA Specimen Type: SERUM No comment entered. Ordering Provider: HIREN TUTTLE Report Released Date/Time: May 24, 2024 11:32 AM Reporting Lab: [address] [address] Performing Lab: [address] [address] PSA 2.42 ng/mL 0.00-4.00 May 24, 2024 12:16 PM [facility] URINALYSIS CLEAN CATCH Specimen Type: URINE Comment: If Glucose = >500 and Ketones are positive, please alert the Physician. Ordering Provider: HIREN TUTTLE Report Released Date/Time: May 24, 2024 11:32 AM Reporting Lab: [address] [phone] Performing Lab: [facility] [address] [facility] [address] UA COLOR Light-Yellow Yellow UA APPEARANCE Clear Clear UA GLUCOSE Normal mg/dL Negative UA KETONES NEGATIVE mg/dL Negative UA BLOOD NEGATIVE mg/dL Negative UA PROTEIN NEGATIVE mg/dL Negative UA NITRITE NEGATIVE mg/dL Negative UA BILIRUBIN NEGATIVE mg/dL Negative UA SPECIFIC GRAVITY 1.023 H 1.016-1.022 UA pH 6.5 5.0-9.0 UA UROBILINOGEN Normal mg/dL <2.0 UA LEUKOCYTE NEGATIVE Negative May 24, 2024 12:16 PM [facility] BASIC METABOLIC PANEL (non-fasting) Specimen Type: SERUM No comment entered. Ordering Provider: HIREN TUTTLE Report Released Date/Time: May 24, 2024 11:32 AM Reporting Lab: [address] [phone] Performing Lab: [address] [address] UREA NITROGEN 12 mg/dL 7-25 GLUCOSE 107 mg/dL H 65-100 SODIUM 139 mmol/L 135-145 POTASSIUM 4.2 mmol/L 3.5-5.0 CHLORIDE 104 mmol/L 100-110 CO2 25 meq/L 20-30 CREATININE, Serum 0.85 mg/dL 0.50-1.40 eGFR(CKD-EPI 2020) >90 mL/min >60 May 24, 2024 12:16 PM [facility] CBC AND DIFF (AUTO) Specimen Type: BLOOD No comment entered. Ordering Provider: HIREN TUTTLE Report Released Date/Time: May 24, 2024 11:32 AM Reporting Lab: [address] [address] Performing Lab: [address] [address] WBC 5.72 10*3/uL 4.50-11.00 RBC 5.02 10*6/uL 4.23-5.66 HGB 14.8 g/dL 12.8-17 HCT 43.9 39.2-50.4 MCV 87.5 fL 82-99 MCHC 33.7 g/dL 30.8-35.1 PLT 123 10*3/uL L 140-360 RDW-CV 12.2 12.0-16.0 MONO, ABS 0.54 10*3/uL 0.30-1.10 MCH 29.5 pg 26.2-32.6 NEUT % 59.6 43.7-75.8 LYMPH % 26.7 14.0-42.3 MONO % 9.4 5.1-13.7 EOS % 3.5 0.4-6.8 BASO % 0.3 0.1-2.0 NEUT, ABS 3.40 10*3/uL 2.20-7.60 LYMPH, ABS 1.53 10*3/uL 1.00-3.20 EOS, ABS 0.20 10*3/uL 0.03-0.44 BASO, ABS 0.02 10*3/uL 0.01-0.13 IMMATURE GRAN % 0.5 0.0-0.7 IMMATURE GRAN, ABS 0.03 10*3/uL 0.00-0.06 NRBC % 0.0 0.0-0.0 NRBC, ABS 0.00 10*3/uL 0.00-0.00 Social History: Smoking Status (Most current) and Tobacco Use (All prior to encounter date) This section includes the most current, and the historical, smoking and tobacco- related health factors from the [place] facility where the Encounter took place. Current Smoking Status This section includes the most current smoking, or tobacco-related health factor, from the [place] facility where the Encounter took place. Date/Time Current Smoking Status Comment Krishan ity May 24, 2024 11:00 AM [facility] Tobacco Use History This section includes a history of the smoking, or tobacco-related health factors, that were collected on or before the date of the Encounter. The data comes from the [place] facility where the Encounter took place. Date/Time Smoking Status/Tobacco Use Comment F [email or web address] May 17, 2023 11:30 AM [place] [facility] Mar 26, 2021 11:00 AM [place]ACCO [place] US[place] [facility] Apr 16, 2020 09:00 AM [facility] Jan 10, 2019 11:57 AM [facility]ACCO [facility] Mar 31, 2018 03:49 PM LIFETIME NON-TOBACCO US[facility] Mar 08, 2017 02:54 PM LIFETIME NON-TOBACCO USER [facility] Pathology Reports: +/- 30 days of the [...] the Encounter. The data comes from all [facility] facilities. Date/Time Pathology Report Provider Source May 24, 2024 12:16 PM LR MICROBIOLOGY RE PORT: Reporting Lab: [facility] [CLIA# [id number]] [address] [place] [id number] Accession [UID]: [id number] [[id number]] Received: May 24, 2024@12:16 Collection sample: URINE CLEAN CATCH Collection date: May 24, 2024 12:16 Site/Specimen: URINE Provider: HIREN TUTTLE Comment on specimen: cc Test(s) ordered: URINE CULTURE(MWROX).......... completed: May 30, 2024 07:58 * BACTERIOLOGY FINAL REPORT => May 30, 2024 07:58 TECH CODE: [id number] Bacteriology Remark(s): >10,000 - <25,000 CFU/ML MIXED GRAM POSITIVE MELISSA No further workup =--=--=--=--=--=--=--=-- =--=--=--=--=--=--=--=-- =--=--=--=--=--=--=--=-- =--=-- Performing Laboratory: Bacteriology Report Performed By: [facility] [CLIA# [id number]] [address] [place] [address] [facility] Encounter Notes: All associated encounter notes This section contains the clinical notes associated to the Encounter. Date/Time Encounter Note(s) Provider Source Jun 20, 2024 11:02 AM PSYCHOLOGY NOTE: LOCAL TITLE: PSYCHOLOGY NOTE STANDARD TITLE: PSYCHOLOGY NOTE DATE OF NOTE: JUN 20, 2024@11:02 ENTRY DATE: JUN 20, 2024@11:02:31 AUTHOR: MARCELLA OSORIO EXP COSIGNER: URGENCY: STATUS: COMPLETED Date of session: Jun Duration of session: 20 Diagnosis: Depression Presenting Problem (Occidental report): Feeling better, back on his meds. 16 year old son Diegourged him to come in, and to get back to work: he's the reason I came in to begin with. Recalls an occasion when he yelled at the boy some years back, and so how upset the child was. Course of Session: Has paperwork together for senior living, feels confident it will go thru this time. Expects to get back to work later in the week. Specific mental health/clinical interventions: We agreed to monitor level of depression once separation is formalized: we both help he'll feel lastingly better, but it's an empiricle question. Mental Status/Clinical Impression: 1. Appearance (grooming, attire, apparent age) within normal limits: delusions): Yes - does have a cold, and his headache persists 2. Thought content was organized and goal directed: Yes 3. Speech was coherent and unimpaired: Yes 4. Affect was appropriate and unremarkable: Yes 5. Demeanor was calm, with no signs of agitation or restlessness: Yes 6. Problems with sleep or appetite reported: Not discussed 7. Psychosis (hallucinations or Delusions: No Client's response to interventions: Plans, next steps, and/or clinical decisions: Date of next planned contact: /ankit/ MARCELLA OSORIO, PhD Clinical Psychologist Signed: 06/20/2024 12:41 MARCELLA OSORIO [facility]
--- OUTSIDE RECORDS SUMMARY | 2024-08-31 19:53 | XMS_ITS | Continuity of Care Document ---
Author Name [facility] Organization [facility] Care Team Providers Care Retail Zone Specialist Name Role Phone [facility] Unavailable Unavailable Problems Combined list of problems from Department of Defense and Veterans Affairs facilities. It does not include entries that were removed or entered in error. Problem Status Onset Date Problem Type Date of Resolution Comments Source Sleep Apnea (SCT 01512554) Active 020 Condition [facility] Need For Vaccination Against Influenza Inactive 007 Condition [facility] Adult screening status Active Condition Aug 19, 2018 Entered By: LETICIA GRIFFITH Comment: 07/2018 TRIGLYCERIDE: 434 H- start statinAug 19, 2018 Entered By: LETICIA GRIFFITH Comment: Hg A1C 5.3 07/2018 [facility] Anaphylactic reaction Active Condition Sep 20, 2023 Entered By: Sahil TUTTLE Comment: reaction of throat closing up to food product Millet/cereal- vet has epi-pen [facility] Carpal tunnel Active Condition Apr Entered By: COLBY WELLER Comment: s/p Right carpal tunnel release 03/2022 at [facility] Cervical osteoarthritis Active Condition [facility] Chronic back pain Active Condition De 2016 Entered By: LETICIA GRIFFITH Comment: Mild spondylotic changes as noted [facility] Chronic low back pain Active Condition [facility] Chronic Post-Traumatic Stress Disorder Following Combat (SCT 399736860) Active Condition [facility] Daytime somnolence Active Condition [facility] Depression (SNOMED CT 96877993) Active Condition [facility] Elbow pain Active Condition [facility] Encounter for dental examination and cleaning without abnormal findings Active Condition [facility] Essential hypertension (SNOMED CT 40263660) Active Condition [facility] GERD - Gastro-Esophageal Reflux Disease (SCT 620412095) Active Condition [facility] Headache Active Condition Aug 24 Entered By: Sahil TUTTLE Comment: see neuro [facility] note/ 08/15/2024- vet needs to stop all analgesics- consider MRI/ ESR to eval for [facility] History of surgery Active Condition A 2016 Entered By: LETICIA GRIFFITH Comment: - VascestomySep 2016 Entered By: LETICIA GRIFFITH Comment: forearm - lipoma excised 2016 [facility] HLD - Hyperlipidemia Active Condition V A [facility] Hypertension Active Condition [facility] Hypertriglyceridemia (SNOMED CT 673310310) Active Condition [facility] Lateral epicondylitis of right humerus Active Condition [facility] Low back pain (SNOMED CT 262437366) Active Condition [facility] Major depression Active Condition Sep 22, 2017 Entered By: FORREST CABAN Comment: updateAu2018 Entered By: TIERA MISHRA Comment: Reviewed [facility] Pain of bilateral hands Active Condition Jul 18, 2017 Entered By: LETICIA GRIFFITH Comment: normal xray of hands - 2015 [facility] Painful arms and moving fingers Active Condition Aug 19, 2018 Entered By: LETICIA GRIFFITH Comment: Early degenerative changes in the lower cervical spine. [facility] Screening status Active Condition Mar 17, 2017 Entered By: LETICIA GRIFFITH Comment: Cardiac ( echo/ stress test - 2016)/ cardiac cath - > 10 yrs [place] [facility] Speech problem Active Condition Dec 172022 Entered By: Sahil TUTTLE Comment: vet describes some dysarthia/ needs speech eval [facility] Stutter Active Condition [facility] Treadmill stress test negative for angina pectoris Active Condition Nov 05, 2022 Entered By: Sahil TUTTLE Comment: vet had atypical chest pain/ ETT and nuclear stress October 02, 2022 completely NORMAL [facility] Tremor Active Condition [facility] Under care of multiple providers Active Condition Mar 17, 2017 Entered By: LETICIA GRIFFITH Comment: Dr Calvert ( [facility])Mar 17, 2017 Entered By: LETICIA GRIFFITH Comment: General surgeon : Dr Guy ( [facility])Mar 17, 2017 Entered By: LETICIA GRIFFITH [facility] Entered By: LETICIA GRIFFITH Comment: Sleep Medicine Physician - yung [facility] muscle spasm Inactive Condition Do[facility] adjustment disorder with anxiety Active Condition Do[facility] 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 DoD otitis media Active Condition DoD acute reaction to stress Active Condition Do[facility] Patient Counseling: Active Condition Do D discogenic syndrome Active Condition Do D anxiety Active Condition DoD cervicalgia Active Condition DoD sore throat Active Condition DoD lumbago Active Condition DoD disorder of tonsil tonsillitis Active Condition DoD visit for: administrative purpose Active Condition Do D viral syndrome Inactive Condition DoD thrombocytopenia Active Condition DoD abdominal pain Active Condition DoD other specified viral disease Inactive Condition DoD upper respiratory infection Inactive Condition DoD essential hypertriglyceridemia Active Condition DoD adjustment disorder with depressed mood Active Condition DoD pharyngitis Active Condition DoD visit for: screening exam pulmonary tuberculosis Active Condition DoD visit for: screening exam cardiovascular disorders Active Condition DoD visit for: vasectomy status Active Condition DoD hyperlipidemia Active Condition DoD headache Inactive Condition DoD visit for: follow-up exam Active Condition DoD Need For Vaccination Hepatitis A Active Condition DoD visit for: sterilization Inactive Condition DoD sinusitis Active Condition DoD allergic rhinitis Active Condition DoD atypical chest pain Inactive Condition D oD Dietary Counseling Pertaining To Specific Condition Active Condition DoD esophageal reflux Active Condition DoD pharyngitis acute Active Condition DoD abdominal pain in the central upper belly (epigastric) Active Condition abdominal US ordered DoD joint pain, localized in the knee Active Condition DoD gastritis Active Condition diet free of irritants DoD lower back pain Active Condition DoD familial hypertriglyceridemia Active Condition diet an d exercise, f/u with new laboratory test in 1 1/2 month DoD Laboratory Studies Active Condition s till mild increase in triglycerides DoD visit for: issue repeat prescription for medication Active Condition DoD hypertension systemic Active Condition Controlled but needs refill. DoD visit for: services physical Active Condition DoD visit for: screening exam respiratory disorders Inactive Condition DoD Need For Prophylactic Measure Active Condition DoD Diagnosis: ICD-10-CM G44.41 Drug-induced headache, not elsewhere classified, intractable Active Diagnosis [facility] Diagnosis: ICD-10-CM F33.1 Major depressive disorder, recurrent, moderate Active Diagnosis [facility] Diagnosis: ICD-10-CM G43.909 Migraine, unsp, not intractable, without status migrainosus Active Diagnosis [facility] Diagnosis: ICD-10-CM F43.12 Post-traumatic stress disorder, chronic Active Diagnosis [facility] Diagnosis: ICD-10-CM M54.2 Cervicalgia Active Diagnosis [facility] Diagnosis: ICD-10-CM G47.30 Sleep apnea, unspecified Active Diagnosis [facility] Diagnosis: ICD-10-CM M54.50 Low back pain, unspecified Active Diagnosis [facility] Diagnosis: ICD-10-CM G56.00 Carpal tunnel syndrome, unspecified upper limb Active Diagnosis [facility] Diagnosis: ICD-10-CM Z46.1 Encounter for fitting and adjustment of hearing aid Active Diagnosis [facility] Diagnosis: ICD-10-CM H90.3 Sensorineural hearing loss, bilateral Active Diagnosis [facility] Diagnosis: ICD-10-CM Z04.9 Encounter for examination and observation for unsp reason Active Diagnosis [facility] Diagnosis: ICD-10-CM R47.89 Other speech disturbances Active Diagnosis [facility] Diagnosis: ICD-10-CM Z46.0 Encounter for fit/adjst of spectacles and contact lenses Active Diagnosis [facility] Diagnosis: ICD-10-CM M54.59 Other low back pain Active Diagnosis [facility] Medications Combined list of outpatient medications from Department of Defense and [facility] Affairs facilities.Medications provided include 1) outpatient medications from the last 15 months, and 2) patient-reported medications. Medication Details Route Status Patient Instructions Prescription Expires Prescription Number Last Dispense Date Ordering Provider Order Date Order Qty Source ACETAMINOPH EN 500MG/CAFFE INE 65MG TAB TAKE 2 TABLETS BY MOUTH THREE TIMES DAILY NEEDED FOR HEADACHE FOR HEADACHE ORAL 01/01/2024 [id number] LENKA HART 2022 40 [facility] Acetaminoph en/Caffeine (Excedrin Tension Headache Eq.) Tablet 500-65 mg Oral TAKE 2 TABLETS BY MOUTH THREE TIMES DAILY NEEDED FOR HEADACHE FOR HEADACHE 01/01/2024 [id number] HIREN HERRING 2023 40 [facility] Bisoprolol Fumarate (Zebeta Eq.) Tablet 5mg Oral TAKE ONE TABLET BY MOUTH ONCE DAILY FOR HIGH BLOOD PRESSURE Active 09/20/2024 [id number] 4 HIREN HERRING 2023 90 [facility] Bisoprolol Fumarate (Zebeta Eq.) Tablet 5mg Oral TAKE ONE TABLET BY MOUTH ONCE DAILY FOR HIGH BLOOD PRESSURE Active 09/20/2024 [id number] HIREN HERRING 2023 90 [facility] Bisoprolol Fumarate (Zebeta Eq.) Tablet 5mg Oral TAKE ONE TABLET BY MOUTH ONCE DAILY Discont inued 01/01/2024 [id number] HIREN HERRING 2023 90 [facility] BISOPROLOL FUMARATE 5MG TAB TAKE ONE TABLET BY MOUTH ONCE DAILY FOR HIGH BLOOD PRESSURE ORAL ACTIVE 09/20/2024 [id number] 4 LENKA HART 2023 90 [facility] BISOPROLOL FUMARATE 5MG TAB TAKE ONE TABLET BY MOUTH ONCE DAILY ORAL DISCONT INUED (EDIT) 01/01/2024 [id number] LENKA HART 2022 90 [facility] BISOPROLOL FUMARATE 5MG TAB TAKE ONE TABLET BY MOUTH EVERY DAY ORAL ACTIVE Sahil MARCOS 2015 [facility] Bupivacaine HCl/Dextros e Solution 0.75%/8.25% Injection TAKE THREE CAPSULES BY MOUTH AT BEDTIME PTSD Active 11/22/2024 [id number] 4 HIREN HERRING 2023 270 [facility] Bupivacaine HCl/Dextros e Solution 0.75%/8.25% Injection TAKE TWO CAPSULES BY MOUTH AT BEDTIME Discont inued 2024 [id number] HIREN HERRING 2023 180 [facility] Bupivacaine HCl/Dextros e Solution 0.75%/8.25% Injection TAKE ONE CAPSULE BY MOUTH AT BEDTIME 08/16/2024 [id number] 4 HIREN HERRING 2023 90 [facility] BUPROPION HCL 150MG 24HR TAB,SA TAKE ONE TABLET BY MOUTH ONCE DAILY FOR DEPRESSI ON ORAL SUSPEND ED 05/27/2025 [id number] MAUREEN SANCHEZ 2023 90 [facility] BUPROPION HCL 150MG 24HR TAB,SA TAKE ONE TABLET BY MOUTH ONCE DAILY FOR DEPRESSI ON ORAL DISCONT INUED 05/18/2024 [id number] RITU WATT 2022 90 [facility] buPROPion HCl XL 150 MG ORAL TB24 TAKE ONE TABLET BY MOUTH ONCE DAILY FOR DEPRESSI ON 05/18/2024 [id number] 4 RITU WATT 2023 90 [facility] buPROPion HCl XL 150 MG ORAL TB24 TAKE ONE TABLET BY MOUTH ONCE DAILY FOR DEPRESSI ON 05/18/2024 [id number] RITU WATT 2023 90 [facility] carboxymeth ylcel 0.5% EYE DROP [2 X15ML] INSTILL 1 DROP INTO EACH EYE FOUR TIMES A DAY FOR DRY EYE 02/27/2024 [id number] FRANCA RIOS 2023 45 [facility] CARBOXYMETH YLCELLULOSE NA 0.5% SOLN,OPH INSTILL 1 DROP INTO EACH EYE FOUR TIMES A DAY FOR DRY EYE OPHTHA LMIC 02/27/2024 [id number] 4 BRONWYN RIOS 2022 45 [facility] CETIRIZINE (U/D) 10 MG ORAL TAB TAKE ONE TABLET BY MOUTH ONCE DAILY FOR ALLERGIE S Active 09/20/2024 [id number] 4 HIREN HERRING 2023 90 [facility] CETIRIZINE HCL 10MG TAB TAKE ONE TABLET BY MOUTH ONCE DAILY FOR ALLERGIE S ORAL ACTIVE 09/20/2024 [id number] 4 LENKA HART 2023 90 [facility] EPINEPHRINE (EQV-EPI-PE N) 0.3MG/0.3ML INJECTOR INJECT DIRECTED INTRAMUS CULARLY ONE TIME FOR LIFE THREATEN ING ALLERGIC REACTION INTRAM USCULA R ACTIVE 09/20/2024 [id number] 4 LENKA HART 2023 2 [facility] EPINEPHRINE (EQV-EPI-PE N) 0.3MG/0.3ML INJECTOR INJECT DIRECTED INTRAMUS CULARLY INTRAM USCULA R ACTIVE NACHO,S UANNE 2016 [facility] Epinephrine 1mg/mL Solution, Intramuscul ar (Epipen), 0.3mL Prefilled Pen INJECT DIRECTED INTRAMUS CULARLY ONE TIME FOR LIFE THREATEN ING ALLERGIC REACTION Active 09/20/2024 [id number] HIREN HERRING 2023 2 [facility] GABAPENTIN (U/D) 300 MG ORAL CAP TAKE TWO CAPSULES BY MOUTH EVERY MORNING AND TAKE ONE CAPSULE AT NOON AND TAKE TWO CAPSULES AT BEDTIME FOR NERVE PAIN Active 09/20/2024 [id number] 4 HIREN HERRING 2023 450 [facility] GABAPENTIN (U/D) 300 MG ORAL CAP TAKE TWO CAPSULES BY MOUTH EVERY MORNING AND TAKE ONE CAPSULE AT NOON AND TAKE TWO CAPSULES AT BEDTIME FOR NERVE PAIN Active 09/20/2024 [id number] 4 HIREN HERRING 2023 450 [facility] GABAPENTIN (U/D) 300 MG ORAL CAP TAKE TWO CAPSULES BY MOUTH EVERY MORNING AND TAKE ONE CAPSULE AT NOON AND TAKE TWO CAPSULES AT BEDTIME FOR NERVE PAIN Discont inued 01/01/2024 [id number] 4 HIREN HERRING 2023 450 [facility] GABAPENTIN 300MG CAP TAKE TWO CAPSULES BY MOUTH EVERY MORNING AND TAKE ONE CAPSULE AT NOON AND TAKE TWO CAPSULES AT BEDTIME FOR NERVE PAIN ORAL ACTIVE 09/20/2024 [id number] 4 LENKA HART 2023 450 [facility] GABAPENTIN 300MG CAP TAKE TWO CAPSULES BY MOUTH EVERY MORNING AND TAKE ONE CAPSULE AT NOON AND TAKE TWO CAPSULES AT BEDTIME FOR NERVE PAIN ORAL DISCONT INUED (EDIT) 01/01/2024 [id number] 4 LENKA HART 2022 450 [facility] HYDROCHLORO THIAZIDE TAB TAKE 6.25MG BY MOUTH EVERY DAY ORAL ACTIVE Sahil MARCOS 2015 [facility] IRX: Prazosin 1 mg vs. Placebo Capsule Conventiona l Oral TAKE ONE CAPSULE BY MOUTH AT BEDTIME Discont inued 10/23/2023 [id number] HIREN HERRING 2023 90 [facility] IRX: Prazosin 1 mg vs. Placebo Capsule Conventiona l Oral TAKE ONE CAPSULE BY MOUTH AT BEDTIME 10/23/2023 [id number] HIREN HERRING Tee 2023 90 [facility] KETOTIFEN 0.025 % EYE DROP [10 ML] INSTILL 1 DROP INTO EACH EYE TWICE DAILY FOR ALLERGIC CONJUNCT IVITIS (IF YOU WEAR CONTACT LENSES, WAIT 10 MINUTES BEFORE INSERTIN G LENSES) 02/27/2024 [id number] 4 FRANCA RIOS 2023 20 [facility] KETOTIFEN 0.025% SOLN,OPH INSTILL 1 DROP INTO EACH EYE TWICE DAILY FOR ALLERGIC CONJUNCT IVITIS (IF YOU WEAR CONTACT LENSES, WAIT 10 MINUTES BEFORE INSERTIN G LENSES) OPHTHA LMIC 02/27/2024 [id number] BRONWYN RIOS 2022 20 [facility] MELATONIN 5MG CAP/TAB TAKE ONE CAPSULE/ TABLET BY MOUTH AT BEDTIME NEEDED FOR INSOMNIA ORAL ACTIVE 05/27/2025 [id number] 5 MAUREEN SANCHEZ 2023 90 [facility] MELATONIN 5MG CAP/TAB TAKE ONE CAPSULE/ TABLET BY MOUTH AT BEDTIME NEEDED FOR INSOMNIA ORAL DISCONT INUED 08/24/2024 [id number] LENKA HART 2023 90 [facility] MELATONIN 5MG CAP/TAB TAKE TWO CAPSULE/ TABLET BY MOUTH AT BEDTIME ORAL ACTIVE Jonh GRIFFITH 2016 [facility] NO NON-VA MEDICATIONS /HERBALS/OT C's MISCELLANEO US USE ACTIVE ERICK SPENCER 2014 [facility] PRAZOSIN HCL 1MG CAP TAKE ONE CAPSULE BY MOUTH AT BEDTIME ORAL DISCONT INUED (EDIT) 10/23/2023 [id number] LENKA HART 2023 90 [facility] PRAZOSIN HCL 2MG CAP TAKE FOUR CAPSULES BY MOUTH AT BEDTIME PTSD ORAL ACTIVE 05/27/2025 [id number] 5 MAUREEN SANCHEZ 2024 120 [facility] PRAZOSIN HCL 2MG CAP TAKE THREE CAPSULES BY MOUTH AT BEDTIME PTSD ORAL DISCONT INUED (EDIT) 02/16/2025 [id number] LENKA HART 2023 270 [facility] PRAZOSIN HCL 2MG CAP TAKE THREE CAPSULES BY MOUTH AT BEDTIME PTSD ORAL DISCONT INUED (EDIT) 11/22/2024 [id number] LENKA HART 2023 270 [facility] PRAZOSIN HCL 2MG CAP TAKE TWO CAPSULES BY MOUTH AT BEDTIME ORAL DISCONT INUED (EDIT) 2024 [id number] LENKA HART 2023 180 [facility] PRAZOSIN HCL 2MG CAP TAKE ONE CAPSULE BY MOUTH AT BEDTIME ORAL DISCONT INUED (EDIT) 08/16/2024 [id number] 4 LENKA HART 2023 90 [facility] sertraline (U/D) 100 MG ORAL TAB TAKE TWO TABLETS BY MOUTH ONCE DAILY 05/18/2024 [id number] RITU WATT 2023 180 [facility] sertraline (U/D) 100 MG ORAL TAB TAKE TWO TABLETS BY MOUTH ONCE DAILY 05/18/2024 [id number] RITU WATT 2023 180 [facility] SERTRALINE HCL 100MG TAB TAKE TWO TABLETS BY MOUTH ONCE DAILY ORAL SUSPEND ED 05/27/2025 [id number] MAUREEN SANCHEZ 2023 180 [facility] SERTRALINE HCL 100MG TAB TAKE TWO TABLETS BY MOUTH ONCE DAILY ORAL DISCONT INUED 05/18/2024 [id number] 4 RITU WATT 2022 180 [facility] simvastatin (U/D) 40 MG ORAL TAB TAKE ONE-HALF TABLET BY MOUTH ONCE DAILY FOR CHOLESTE ROL Active 09/20/2024 [id number] 4 HIREN HERRING 2023 45 [facility] simvastatin (U/D) 40 MG ORAL TAB TAKE ONE-HALF TABLET BY MOUTH ONCE DAILY FOR CHOLESTE ROL Active 09/20/2024 [id number] 4 HIREN HERRING 2023 45 [facility] simvastatin (U/D) 40 MG ORAL TAB TAKE ONE-HALF TABLET BY MOUTH ONCE DAILY FOR CHOLESTE ROL Discont inued 10/06/2023 [id number] ALIZA WELLER 2023 45 [facility] SIMVASTATIN 40MG TAB TAKE ONE-HALF TABLET BY MOUTH ONCE DAILY FOR CHOLESTE ROL ORAL ACTIVE 09/20/2024 [id number] LENKA HART 2023 45 [facility] SIMVASTATIN 40MG TAB TAKE ONE-HALF TABLET BY MOUTH ONCE DAILY FOR CHOLESTE ROL ORAL DISCONT INUED (EDIT) 10/06/2023 [id number] RA PERI WELLER 2022 45 [facility] TRAZODONE HCL 100MG TAB TAKE ONE TABLET BY MOUTH AT BEDTIME AND TAKE ONE-HALF TABLET AT BEDTIME NEEDED FOR SLEEP ORAL SUSPEND ED 05/27/2025 [id number] 5 MAUREEN SANCHEZ 2023 135 [facility] TRAZODONE HCL 100MG TAB TAKE ONE TABLET BY MOUTH AT BEDTIME AND TAKE ONE-HALF TABLET AT BEDTIME NEEDED FOR SLEEP ORAL DISCONT INUED 05/18/2024 [id number] SHUKRIANMOLRITU A 2022 135 [facility] Trazodone Hcl, 100mg, Tablet, Oral TAKE ONE TABLET BY MOUTH AT BEDTIME AND TAKE ONE-HALF TABLET AT BEDTIME NEEDED FOR SLEEP 05/18/2024 [id number] SHUKRI RITU Isaacs 2023 135 [facility] Trazodone Hcl, 100mg, Tablet, Oral TAKE ONE TABLET BY MOUTH AT BEDTIME AND TAKE ONE-HALF TABLET AT BEDTIME NEEDED FOR SLEEP 05/18/2024 [id number] SHUKRIRITU Shital 2023 135 [facility] Allergies, Adverse Reactions, Alerts Combined list of allergies from Department of Defense and Veterans Affairs facilities. It does not include entries that were removed or entered in error. Substance Category Reaction Severity Reaction type Status Date Reported Comments Source FOOD PRESERVATIVE S Propensity to adverse reactions to food (finding) Anaphylaxis active 7 [facility] LACTOSE Propensity to adverse reactions to substance (finding) Abdominal pain active 7 [facility] Lactose, Monohydrate (Do Not Use, Not Screened) Food allergy (disorder) Abdominal pain active 7 [facility] TRAMADOL Propensity to adverse reactions to drug (finding) Eruption, Purpuric rash active 7 [facility] Tramadol HCl Drug allergy (disorder) Eruption of skin, Purpuric rash active 7 [facility] Immunizations Combined list of available immunizations from the Department of Defense and Veterans Affairs facilities. 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 Cabin Class Status Comments Source INFLUENZA, SPLIT VIRUS, TRIVALENT, PF 2023 KARISSA SALDANA LEFT DELTO ID [id number] 140 complet ed [facility] INFLUENZA, INJECTABLE, QUADRIVALENT, PRESERVATIVE FREE 2023 KARISSA SALDANA LEFT DELTO ID [id number] 150 complet ed [facility] ZOSTER RECOMBINANT 2022 YOMI GUEVARA LEFT DELTO ID [id number] 187 complet ed Pt tolerated well [facility] COVID-19 (MODERNA), MRNA, LNP-S, BIVALENT BOOSTER, PF, 50 MCG/0.5 ML OR 25MCG/0.25 ML DOSE 1 2021 229 complet ed MOD; [id number]; 3 [facility] INFLUENZA, INJECTABLE, QUADRIVALENT, PRESERVATIVE FREE 2021 150 complet ed [facility] COVID-19 (MODERNA), MRNA, LNP-S, PF, 100 MCG OR 50 MCG DOSE 3 2021 207 complet ed MOD; [id number]; 2 [facility] INFLUENZA, INJECTABLE, QUADRIVALENT, PRESERVATIVE FREE 2020 150 complet ed [facility] COVID-19 (MODERNA), MRNA, LNP-S, PF, 100 MCG/0.5 ML DOSE 2 2020 207 complet ed MOD; [id number]; 1 [facility] COVID-19 (MODERNA), MRNA, LNP-S, PF, 100 MCG/0.5 ML DOSE 1 2020 207 complet ed MOD; [id number]; 1 [facility] INFLUENZA, INJECTABLE, QUADRIVALENT, PRESERVATIVE FREE 2018 150 complet ed Site: Left Deltoid [facility] INFLUENZA, SEASONAL, INJECTABLE 2017 141 complet ed [facility] INFLUENZA, SEASONAL, INJECTABLE 2016 141 complet ed [place] in [place] [facility] TD(ADULT) UNSPECIFIED FORMULATION 2015 139 complet ed [place] [facility] TD (ADULT) 2015 138 complet ed [facility] TD(ADULT) UNSPECIFIED FORMULATION 2015 139 complet ed [facility] INFLUENZA, SEASONAL, INJECTABLE 2014 141 complet ed [facility] PNEUMOCOCCAL CONJUGATE PCV 13 2014 133 complet ed [facility] FLU,3 YRS (HISTORICAL) 2013 [place] 88 complet ed [facility] Novel influenza-H1N 1-09, injectable 1 2008 [id number] 127 [employer] Krista. (NOV) complet ed Novel influenza -W3O2-20, injectabl e DoD influenza virus vaccine, split virus (incl. purified surface antigen)-reti red CODE 1 2008 [id number] 15 Unknown (UNK) complet ed influenza virus vaccine, split virus (incl. purified surface antigen)- retired CODE DoD influenza virus vaccine, split virus (incl. purified surface antigen)-reti red CODE 1 2007 XOCHITL WEBB [id number] 15 Other (OTH) complet ed influenza virus vaccine, split virus (incl. purified surface antigen)- retired CODE DoD tuberculin skin test; purified protein derivative solution, intradermal 1 2007 XOCHITL WEBB [id number] [employer] Pasteur ([facility]) complet ed tuberculi n skin test; purified protein derivativ e solution, intraderm al DoD influenza virus vaccine, split virus (incl. purified surface antigen)-reti red CODE 1 2007 UNK 15 Unknown (UNK) comple t ed influenza virus vaccine, split virus (incl. purified surface antigen)- retired CODE DoD tuberculin skin test; purified protein derivative solution, intradermal 1 2007 Unknown, Provider [id number] Lucas () complet ed tuberculi n skin test; purified protein derivativ e solution, intraderm al DoD hepatitis A vaccine, adult dosage 2 2007 Unknown, Provider [id number] 52 [employer] (SKB) complet ed hepatitis A vaccine, adult dosage DoD influenza virus vaccine, split virus (incl. purified surface antigen)-reti red CODE 1 2006 [id number] 15 [employer] (MED) complet ed influenza virus vaccine, split virus (incl. purified surface antigen)- retired CODE DoD influenza virus vaccine, whole virus 1 2006 DREWVIGNESHJonh NEAL L [id number] 3AA 16 [employer] (MED) complet ed influenza virus vaccine, whole virus DoD DTAP, UNSPECIFIED FORMULATION 2006 107 complet ed [facility] [place] [facility] [facility] measles, mumps and rubella virus vaccine 1 2006 UNK 03 Unknown (UNK) comple t ed measles, mumps and rubella virus vaccine DoD poliovirus vaccine, inactivated 1 2006 UNK 10 Unknown (UNK) comple t ed polioviru s vaccine, inactivat ed DoD hepatitis A vaccine, adult dosage 1 2006 UNK 52 Unknown (UNK) comple t ed hepatitis A vaccine, adult dosage DoD diphtheria, tetanus toxoids and acellular pertu is vaccine, unspecified formulation 1 2006 INK 107 Unknown (UNK) comple t ed diphtheri a, tetanus toxoids and acellular pertussis vaccine, unspecifi ed formulati on DoD tetanus toxoid, reduced diphtheria toxoid, and acellular pertu is vaccine, adsorbed 1 2006 UNK 115 Unknown (UNK) comple t ed tetanus toxoid, reduced diphtheri a toxoid, and acellular pertussis vaccine, adsorbed DoD hepatitis B vaccine, adult dosage 3 1997 UNK 43 Unknown (UNK) comple t ed hepatitis B vaccine, adult dosage DoD hepatitis B vaccine, adult dosage 2 1994 UNK 43 Unknown (UNK) comple t ed hepatitis B vaccine, adult dosage DoD hepatitis B vaccine, adult dosage 1 1994 UNK 43 Unknown (UNK) comple t ed hepatitis B vaccine, adult dosage DoD Results Combined list of recent chemistry, hematology and other laboratory results from [facility] of Defense and [facility], ranging from 15 months to all on record, depending upon the facility. Order Name Results Value Reference Range Date Interpretation Specimen Comments Source C REACTIVE PROTEIN HS (WROX) C REACTIVE PROTEIN [MASS/VOLU ME] IN SERUM OR PLASMA BY HIGH SENSITIVIT Y METHOD 3.39 mg/L 08/28 Specimen Type: SERUM Comment: Reference range changed on 01/06/11 [facility] reference ranges for ages >17 years: hsCRP in mg/L Risk According to AHA/CDC Guidelines <1.0 Lower relative cardiovascu lar risk. 1.0-3.0 Average cardiovascu lar risk. 3.1-10.0 Higher cardiovascu lar risk. Consider retesting in two weeks to exclude a benign transient elevation in the baseline CRP value secondary to infection or inflammatio n. >10.0 Persistent elevation, upon retesting, may be associated with infection and inflammatio n. Ordering Provider: HIREN PARRA Report Released Date/Time: Aug 26, 2024 09:41 AM Reporting Lab: [facility] [place] [facility] [address] [facility] [address] Performing Lab: [facility] [place] [facility] [address] [facility] [address] [facility] [place] [facility] SED RATE, AUTOMATE D ERYTHROCYT E SEDIMENTAT ION RATE BY WESTERGREN METHOD 7 mm/h 0 - 20 08/28 Specimen Type: BLOOD No comment entered. Ordering Provider: HIREN PARRA Report Released Date/Time: Aug 26, 2024 09:41 AM Reporting Lab: [facility] [place] [facility] [address] [facility] [address] Performing Lab: [facility] [place] [facility] [address] [facility] [address] [facility] [place] [facility] CBC AND DIFF (AUTO) LEUKOCYTES [#/VOLUME] IN BLOOD BY AUTOMATED COUNT 7.03 10*3/uL 4.50 - 11.00 08/28 Specimen Type: BLOOD No comment entered. Ordering Provider: HIREN PARRA Report Released Date/Time: Aug 26, 2024 09:41 AM Reporting Lab: [facility] [place] [facility] [address] [facility] [address] Performing Lab: [facility] [place] [facility] [address] [facility] [address] [facility] [place] [facility] CBC AND DIFF (AUTO) ERYTHROCYT ES [#/VOLUME] IN BLOOD BY AUTOMATED COUNT 5.07 10*6/uL 4.23 - 5.66 08/28 Specimen Type: BLOOD No comment entered. Ordering Provider: HIREN PARRA Report Released Date/Time: Aug 26, 2024 09:41 AM Reporting Lab: [facility] [place] [facility] [address] [facility] [address] Performing Lab: [facility] [place] [facility] [address] [facility] [address] [facility] [place] [facility] CBC AND DIFF (AUTO) HEMOGLOBIN [MASS/VOLU ME] IN BLOOD 15.1 g/dL 12.8 - 17 08/28 Specimen Type: BLOOD No comment entered. Ordering Provider: HIREN PARRA Report Released Date/Time: Aug 26, 2024 09:41 AM Reporting Lab: [facility] [place] [place] [address] [address] Performing Lab: [facility] [place] [address] [address] [facility] CBC AND DIFF (AUTO) HEMATOCRIT [VOLUME FRACTION] OF BLOOD BY AUTOMATED COUNT 45.2 39.2 - 50.4 08/28 Specimen Type: BLOOD No comment entered. Ordering Provider: HIREN PARRA Report Released Date/Time: Aug 26, 2024 09:41 AM Reporting Lab: [facility] [place] [facility] [address] [facility] [address] Performing Lab: [facility] [place] [facility] [address] [facility] [address] [facility] [place] [facility] CBC AND DIFF (AUTO) MCV [ENTITIC VOLUME] BY AUTOMATED COUNT 89.2 fL 82 - 99 08/28 Specimen Type: BLOOD No comment entered. Ordering Provider: HIREN PARRA Report Released Date/Time: Aug 26, 2024 09:41 AM Reporting Lab: [facility] [place] [address] [address] Performing Lab: [facility] [place] [facility] [address] [facility] [address] [facility] CBC AND DIFF (AUTO) MCHC [MASS/VOLU ME] BY AUTOMATED COUNT 33.4 g/dL 30.8 - 35.1 08/28 Specimen Type: BLOOD No comment entered. Ordering Provider: HIREN PARRA Report Released Date/Time: Aug 26, 2024 09:41 AM Reporting Lab: [facility] [place] [facility] [address] [facility] [address] Performing Lab: [facility] [address] [facility] [address] [facility] CBC AND DIFF (AUTO) PLATELETS [#/VOLUME] IN BLOOD BY AUTOMATED COUNT 138 10*3/uL 140 - 360 08/28 L Specimen Type: BLOOD No comment entered. Ordering Provider: HIREN PARRA Report Released Date/Time: Aug 26, 2024 09:41 AM Reporting Lab: [facility] [place] [place] [facility] [address] [facility] [address] Performing Lab: [facility] [address] [address] [facility] CBC AND DIFF (AUTO) ERYTHROCYT E DISTRIBUTI ON WIDTH [RATIO] BY AUTOMATED COUNT 12.3 12.0 - 16.0 08/28 Specimen Type: BLOOD No comment entered. Ordering Provider: HIREN PARRA Report Released Date/Time: Aug 26, 2024 09:41 AM Reporting Lab: [facility] [place] [place] [address] [address] Performing Lab: [facility] [place] [address] [address] [facility]N [facility] TS [facility] CBC AND DIFF (AUTO) MONOCYTES [#/VOLUME] IN BLOOD BY AUTOMATED COUNT 0.56 10*3/uL 0.30 - 1.10 08/28 Specimen Type: BLOOD No comment entered. Ordering Provider: HIREN PARRA Report Released Date/Time: Aug 26, 2024 09:41 AM Reporting Lab: [facility] [place] [facility] [address] [facility] [address] Performing Lab: [facility] [place] [facility] [address] [facility] [address] [facility] [place] CBC AND DIFF (AUTO) MCH [ENTITIC MASS] BY AUTOMATED COUNT 29.8 pg 26.2 - 32.6 08/28 Specimen Type: BLOOD No comment entered. Ordering Provider: HIREN PARRA Report Released Date/Time: Aug 26, 2024 09:41 AM Reporting Lab: [facility] [place] [facility] [address] [facility] [address] Performing Lab: [facility] [place] [facility] [address] [facility] [address] [facility] [place] [facility] CBC AND DIFF (AUTO) NEUTROPHIL S/100 LEUKOCYTES IN BLOOD BY AUTOMATED COUNT 55.1 43.7 - 75.8 08/28 Specimen Type: BLOOD No comment entered. Ordering Provider: HIREN PARRA Report Released Date/Time: Aug 26, 2024 09:41 AM Reporting Lab: [facility] [place] [facility] [address] [facility] [address] Performing Lab: [facility] [place] [facility] [address] [facility] [address] [facility] [place] [facility] CBC AND DIFF (AUTO) LYMPHOCYTE S/100 LEUKOCYTES IN BLOOD BY AUTOMATED COUNT 33.0 14.0 - 42.3 08/28 Specimen Type: BLOOD No comment entered. Ordering Provider: HIREN PARRA Report Released Date/Time: Aug 26, 2024 09:41 AM Reporting Lab: [facility] [place] [facility] [address] [facility] [address] Performing Lab: [facility] [place] [facility] [address] [facility] [address] [facility] [place] [facility] CBC AND DIFF (AUTO) MONOCYTES/ 100 LEUKOCYTES IN BLOOD BY AUTOMATED COUNT 8.0 5.1 - 13.7 08/28 Specimen Type: BLOOD No comment entered. Ordering Provider: HIREN PARRA Report Released Date/Time: Aug 26, 2024 09:41 AM Reporting Lab: [facility] [place] [address] [address] Performing Lab: [facility] [place] [address] [address] [facility] [place] [facility] CBC AND DIFF (AUTO) EOSINOPHIL S/100 LEUKOCYTES IN BLOOD BY AUTOMATED COUNT 2.7 0.4 - 6.8 08/28 Specimen Type: BLOOD No comment entered. Ordering Provider: HIREN PARRA Report Released Date/Time: Aug 26, 2024 09:41 AM Reporting Lab: [facility] [address] [address] Performing Lab: [facility] [address] [address] [facility] CBC AND DIFF (AUTO) BASOPHILS/ 100 LEUKOCYTES IN BLOOD BY AUTOMATED COUNT 0.9 0.1 - 2.0 08/28 Specimen Type: BLOOD No comment entered. Ordering Provider: HIREN PARRA Report Released Date/Time: Aug 26, 2024 09:41 AM Reporting Lab: [facility] [place] [address] [address] Performing Lab: [facility] [place] [address] [address] [facility] CBC AND DIFF (AUTO) NEUTROPHIL S [#/VOLUME] IN BLOOD BY AUTOMATED COUNT 3.88 10*3/uL 2.20 - 7.60 08/28 Specimen Type: BLOOD No comment entered. Ordering Provider: HIREN PARRA Report Released Date/Time: Aug 26, 2024 09:41 AM Reporting Lab: [facility] [place] [address] [address] Performing Lab: [facility] [place] [facility] [address] [facility] [address] [facility] [place] [facility] CBC AND DIFF (AUTO) LYMPHOCYTE S [#/VOLUME] IN BLOOD BY AUTOMATED COUNT 2.32 10*3/uL 1.00 - 3.20 08/28 Specimen Type: BLOOD No comment entered. Ordering Provider: HIREN PARRA Report Released Date/Time: Aug 26, 2024 09:41 AM Reporting Lab: [facility] [place] [facility] [address] [facility] [address] Performing Lab: [facility] [place] [facility] [address] [facility] [address] [facility] [facility] CBC AND DIFF (AUTO) EOSINOPHIL S [#/VOLUME] IN BLOOD BY AUTOMATED COUNT 0.19 10*3/uL 0.03 - 0.44 08/28 Specimen Type: BLOOD No comment entered. Ordering Provider: HIREN PARRA Report Released Date/Time: Aug 26, 2024 09:41 AM Reporting Lab: [facility] [address] [address] Performing Lab: [facility] [place] [facility] [address] [facility] [address] [facility] CBC AND DIFF (AUTO) BASOPHILS [#/VOLUME] IN BLOOD BY AUTOMATED COUNT 0.06 10*3/uL 0.01 - 0.13 08/28 Specimen Type: BLOOD No comment entered. Ordering Provider: HIREN PARRA Report Released Date/Time: Aug 26, 2024 09:41 AM Reporting Lab: [facility] [place] [address] [address] Performing Lab: [facility] [address] [address] [facility] CBC AND DIFF (AUTO) IMMATURE GRANULOCYT ES/100 LEUKOCYTES IN BLOOD BY AUTOMATED COUNT 0.3 0.0 - 0.7 08/28 Specimen Type: BLOOD No comment entered. Ordering Provider: HIREN PARRA Report Released Date/Time: Aug 26, 2024 09:41 AM Reporting Lab: [facility] [place] [address] [address] Performing Lab: [facility] [facility] [address] [facility] [address] [facility] [place] [facility] CBC AND DIFF (AUTO) IMMATURE GRANULOCYT ES [#/VOLUME] IN BLOOD 0.02 10*3/uL 0.00 - 0.06 08/28 Specimen Type: BLOOD No comment entered. Ordering Provider: HIREN PARRA Report Released Date/Time: Aug 26, 2024 09:41 AM Reporting Lab: [facility] [place] [address] [address] Performing Lab: [facility] [place] [address] [address] [facility] [place] [facility] CBC AND DIFF (AUTO) NRBC % 0.0 0.0 - 0.0 08/28 Specimen Type: BLOOD No comment entered. Ordering Provider: HIREN PARRA Report Released Date/Time: Aug 26, 2024 09:41 AM Reporting Lab: [facility] [place] [address] [address] Performing Lab: [facility] [place] [address] [address] [facility] [place] [facility] CBC AND DIFF (AUTO) NRBC, ABS 0.00 10*3/uL 0.00 - 0.00 08/28 Specimen Type: BLOOD No comment entered. Ordering Provider: HIREN PARRA Report Released Date/Time: Aug 26, 2024 09:41 AM Reporting Lab: [facility] [place] [address] [address] Performing Lab: [facility] [place] [address] [address] [facility] [place] [facility] TSH THYROTROPI N [UNITS/VOL UME] IN SERUM OR PLASMA 1.52 u[IU]/mL 0.35 - 5.00 05/24 Specimen Type: SERUM No comment entered. Ordering Provider: HIREN PARRA Report Released Date/Time: May 24, 2024 11:32 AM Reporting Lab: [facility] [address] [address] Performing Lab: [facility] [place] [facility] [address] [facility] [address] [facility] [place] [facility] LIVER FUNCTION PROTEIN [MASS/VOLU ME] IN SERUM OR PLASMA 6.8 g/dL 6.0 - 8.3 05/24 Specimen Type: SERUM No comment entered. Ordering Provider: HIREN PARRA Report Released Date/Time: May 24, 2024 11:32 AM Reporting Lab: [facility] [address] [address] Performing Lab: [facility] [place] [address] [address] [facility] [place] [facility] LIVER FUNCTION ALBUMIN [MASS/VOLU ME] IN SERUM OR PLASMA 3.9 g/dL 3.5 - 5.0 05/24 Specimen Type: SERUM No comment entered. Ordering Provider: HIREN PARRA Report Released Date/Time: May 24, 2024 11:32 AM Reporting Lab: [facility] [address] [address] Performing Lab: [facility] [place] [address] [address] [facility] [place] [facility] LIVER FUNCTION ALKALINE PHOSPHATAS E [ENZYMATIC ACTIVITY/V OLUME] IN SERUM OR PLASMA 80 U/L 40 - 150 05/24 Specimen Type: SERUM No comment entered. Ordering Provider: HIREN PARRA Report Released Date/Time: May 24, 2024 11:32 AM Reporting Lab: [facility] [address] [address] Performing Lab: [facility] [facility] [address] [facility] [address] [facility] [place] [facility] LIVER FUNCTION ASPARTATE AMINOTRANS FERASE [ENZYMATIC ACTIVITY/V OLUME] IN SERUM OR PLASMA 19 U/L 5 - 34 05/24 Specimen Type: SERUM No comment entered. Ordering Provider: HIREN PARRA Report Released Date/Time: May 24, 2024 11:32 AM Reporting Lab: [facility] [facility] [address] [facility] [address] Performing Lab: [facility] [place] [facility] [address] [facility] [address] [facility] [place] [facility] LIVER FUNCTION ALANINE AMINOTRANS FERASE [ENZYMATIC ACTIVITY/V OLUME] IN SERUM OR PLASMA 21 U/L 05/24 Specimen Type: SERUM No comment entered. Ordering Provider: HIREN PARRA Report Released Date/Time: May 24, 2024 11:32 AM Reporting Lab: [facility] [facility] [address] [facility] [address] Performing Lab: [facility] [place] [facility] [address] [facility] [address] [facility] [facility] LIVER FUNCTION BILIRUBIN. TOTAL [MASS/VOLU ME] IN SERUM OR PLASMA 0.5 mg/dL 0.2 - 1.2 05/24 Specimen Type: SERUM No comment entered. Ordering Provider: HIREN PARRA Report Released Date/Time: May 24, 2024 11:32 AM Reporting Lab: [facility] [place] [address] [address] Performing Lab: [facility] [place] [facility] [address] [facility] [address] [facility] [place] [facility] PSA PROSTATE SPECIFIC AG [MASS/VOLU ME] IN SERUM OR PLASMA 2.42 ng/mL 0.00 - 4.00 05/24 Specimen Type: SERUM No comment entered. Ordering Provider: HIREN PARRA Report Released Date/Time: May 24, 2024 11:32 AM Reporting Lab: [facility] [place] [facility] [address] [facility] [address] Performing Lab: [facility] [place] [facility] [address] [facility] [address] [facility] [place] [facility] URINALYS IS CLEAN CATCH COLOR OF URINE Light-Ye llow 05/24 Specimen Type: URINE Comment: If Glucose = >500 and Ketones are positive, please alert the Physician. Ordering Provider: HIREN PARRA Report Released Date/Time: May 24, 2024 11:32 AM Reporting Lab: [facility] [place] [facility] [address] [facility] [address] Performing Lab: [facility] [place] [facility] [address] [facility] [address] [facility] [place] [facility] URINALYS IS CLEAN CATCH APPEARANCE OF URINE Clear 05/24 Specimen Type: URINE Comment: If Glucose = >500 and Ketones are positive, please alert the Physician. Ordering Provider: HIREN PARRA Report Released Date/Time: May 24, 2024 11:32 AM Reporting Lab: [facility] [place] [facility] [address] [place] [address] Performing Lab: [facility] [place] [address] [address] [facility] [place] [facility] URINALYS IS CLEAN CATCH GLUCOSE [MASS/VOLU ME] IN URINE Normalmg /dL 05/24 Specimen Type: URINE Comment: If Glucose = >500 and Ketones are positive, please alert the Physician. Ordering Provider: HIREN PARRA Report Released Date/Time: May 24, 2024 11:32 AM Reporting Lab: [facility] [place] [facility] [address] [facility] [address] Performing Lab: [facility] [place] [facility] [address] [facility] [address] [facility] [place] [facility] URINALYS IS CLEAN CATCH KETONES [MASS/VOLU ME] IN URINE BY TEST STRIP NEGATIVE mg/dL 05/24 Specimen Type: URINE Comment: If Glucose = >500 and Ketones are positive, please alert the Physician. Ordering Provider: HIREN PARRA Report Released Date/Time: May 24, 2024 11:32 AM Reporting Lab: [facility] CAMPUSTRN [facility]ENTERUSETS [address] [address] Performing Lab: [facility]ERR[facility] CAMPUSTRN [facility]ENTERUSETS [facility] [address] [facility] [address] [facility] CAMPUSTRN [place] URINALYS IS CLEAN CATCH ERYTHROCYT ES [PRESENCE] IN URINE SEDIMENT BY LIGHT MICROSCOPY NEGATIVE mg/dL 05/24 Specimen Type: URINE Comment: If Glucose = >500 and Ketones are positive, please alert the Physician. Ordering Provider: HIREN PARRA Report Released Date/Time: May 24, 2024 11:32 AM Reporting Lab: [facility] CAMPUSTRN [place] [address] [address] Performing Lab: [place] [facility] [place] [facility] [address] [facility] [address] [facility] [place] [facility] URINALYS IS CLEAN CATCH PROTEIN [MASS/VOLU ME] IN URINE BY TEST STRIP NEGATIVE mg/dL 05/24 Specimen Type: URINE Comment: If Glucose = >500 and Ketones are positive, please alert the Physician. Ordering Provider: HIREN PARRA Report Released Date/Time: May 24, 2024 11:32 AM Reporting Lab: [facility] [place] [address] [address] Performing Lab: [facility] [place] [place] [facility] [address] [facility] [address] [facility] [place] [facility] URINALYS IS CLEAN CATCH NITRITE [PRESENCE] IN URINE NEGATIVE mg/dL 05/24 Specimen Type: URINE Comment: If Glucose = >500 and Ketones are positive, please alert the Physician. Ordering Provider: HIREN PARRA Report Released Date/Time: May 24, 2024 11:32 AM Reporting Lab: [facility] [place] [facility] [address] [facility] [address] Performing Lab: [facility] [place] [facility] [address] [facility] [address] [facility] URINALYS IS CLEAN CATCH BILIRUBIN. TOTAL [PRESENCE] IN URINE NEGATIVE mg/dL 05/24 Specimen Type: URINE Comment: If Glucose = >500 and Ketones are positive, please alert the Physician. Ordering Provider: HIREN PARRA Report Released Date/Time: May 24, 2024 11:32 AM Reporting Lab: [facility] [address] [facility] [address] Performing Lab: [facility] [address] [facility] [address] [facility] URINALYS IS CLEAN CATCH SPECIFIC GRAVITY OF URINE BY REFRACTOME TRY 1.023 1.016 - 1.022 05/24 H Specimen Type: URINE Comment: If Glucose = >500 and Ketones are positive, please alert the Physician. Ordering Provider: HIREN PARRA Report Released Date/Time: May 24, 2024 11:32 AM Reporting Lab: [facility] [address] [facility] [address] Performing Lab: [facility] [address] [facility] [address] [facility] URINALYS IS CLEAN CATCH PH OF URINE BY TEST STRIP 6.5 5.0 - 9.0 05/24 Specimen Type: URINE Comment: If Glucose = >500 and Ketones are positive, please alert the Physician. Ordering Provider: HIREN PARRA Report Released Date/Time: May 24, 2024 11:32 AM Reporting Lab: [facility] [address] [facility] [address] Performing Lab: [facility] [address] [facility] [address] [facility] URINALYS IS CLEAN CATCH UROBILINOG EN [MASS/VOLU ME] IN URINE BY TEST STRIP Normalmg /dL <2.0 - 2.0 05/24 Specimen Type: URINE Comment: If Glucose = >500 and Ketones are positive, please alert the Physician. Ordering Provider: HIREN PARRA Report Released Date/Time: May 24, 2024 11:32 AM Reporting Lab: [facility] [address] Performing Lab: [facility]ENTERRINFIRMARY WESTN [facility] CENTERUSE[address] [address] [facility] URINALYS IS CLEAN CATCH LEUKOCYTE ESTERASE [PRESENCE] IN URINE BY TEST STRIP NEGATIVE 05/24 Specimen Type: URINE Comment: If Glucose = >500 and Ketones are positive, please alert the Physician. Ordering Provider: HIREN PARRA Report Released Date/Time: May 24, 2024 11:32 AM Reporting Lab: [facility]ENTERRINFIRMARY WESTN [facility]ENTERUSE[address] [address] Performing Lab: [facility]ENTERUSE[address] [address] [facility] BASIC METABOLI C PANEL (non-fas ting) UREA NITROGEN [MASS/VOLU ME] IN SERUM OR PLASMA 12 mg/dL 7 - 25 05/24 Specimen Type: SERUM No comment entered. Ordering Provider: HIREN PARRA Report Released Date/Time: May 24, 2024 11:32 AM Reporting Lab: [facility] CENTERRCHILDREN'S OF AL[facility] RUSSELL CAMPUSTRN [facility]ENTERUSE[address] [address] Performing Lab: [facility]ENTERRINFIRMARY WESTN [facility]ENTERUSE[address] [address] [facility]ENTERUSE [facility] BASIC METABOLI C PANEL (non-fas ting) GLUCOSE [MASS/VOLU ME] IN SERUM OR PLASMA 107 mg/dL 65 - 100 05/24 H Specimen Type: SERUM No comment entered. Ordering Provider: HIREN PARRA Report Released Date/Time: May 24, 2024 11:32 AM Reporting Lab: [facility] [place] [facility] [address] [facility] [address] Performing Lab: [facility] [place] [facility] [address] [facility] [address] [facility] [place] [facility] BASIC METABOLI C PANEL (non-fas ting) SODIUM [MOLES/VOL UME] IN SERUM OR PLASMA 139 mmol/L 135 - 145 05/24 Specimen Type: SERUM No comment entered. Ordering Provider: HIREN PARRA Report Released Date/Time: May 24, 2024 11:32 AM Reporting Lab: [facility] [place] [facility] [address] [facility] [address] Performing Lab: [facility] [place] [address] [address] [facility] CENTERRL W[facility]N [facility] BASIC METABOLI C PANEL (non-fas ting) POTASSIUM [MOLES/VOL UME] IN SERUM OR PLASMA 4.2 mmol/L 3.5 - 5.0 05/24 Specimen Type: SERUM No comment entered. Ordering Provider: HIREN PARRA Report Released Date/Time: May 24, 2024 11:32 AM Reporting Lab: [facility] [place] [facility] [address] [facility] [address] Performing Lab: [facility] [place] [address] [address] [facility] [place] [facility] BASIC METABOLI C PANEL (non-fas ting) CHLORIDE [MOLES/VOL UME] IN SERUM OR PLASMA 104 mmol/L 100 - 110 05/24 Specimen Type: SERUM No comment entered. Ordering Provider: HIREN PARRA Report Released Date/Time: May 24, 2024 11:32 AM Reporting Lab: [facility] [place] [facility] [address] [facility] [address] Performing Lab: [facility] [place] [address] [address] [facility] [place] [facility] BASIC METABOLI C PANEL (non-fas ting) CARBON DIOXIDE, TOTAL [MOLES/VOL UME] IN SERUM OR PLASMA 25 meq/L 20 - 30 05/24 Specimen Type: SERUM No comment entered. Ordering Provider: HIREN PARRA Report Released Date/Time: May 24, 2024 11:32 AM Reporting Lab: [facility] [address] [address] Performing Lab: [facility] CENTERRINFIRMARY WESTN [address] [phone] [place] [address] BASIC METABOLI C PANEL (non-fas ting) CREATININE [MASS/VOLU ME] IN SERUM OR PLASMA 0.85 mg/dL 0.50 - 1.40 05/24 Specimen Type: SERUM No comment entered. Ordering Provider: HIREN PARRA Report Released Date/Time: May 24, 2024 11:32 AM Reporting Lab: [facility] CENTERRINFIRMARY WESTN [address] [address] Performing Lab: [facility] CENTERRINFIRMARY WESTN [address] [address] [facility] BASIC METABOLI C PANEL (non-fas ting) GLOMERULAR FILTRATION RATE/1.73 SQ M.PREDICTE D [VOLUME RATE/AREA] IN SERUM, PLASMA OR BLOOD BY CREATININE -BASED FORMULA (CKD-EPI 2020) >90mL/mi n 60 05/24 Specimen Type: SERUM No comment entered. Ordering Provider: HIREN PARRA Report Released Date/Time: May 24, 2024 11:32 AM Reporting Lab: [facility] CENTERRINFIRMARY WESTN [address] [address] Performing Lab: [facility]ENTERUSE[address] [address] [facility] CBC AND DIFF (AUTO) LEUKOCYTES [#/VOLUME] IN BLOOD BY AUTOMATED COUNT 5.72 10*3/uL 4.50 - 11.00 05/24 Specimen Type: BLOOD No comment entered. Ordering Provider: HIREN PARRA Report Released Date/Time: May 24, 2024 11:32 AM Reporting Lab: [facility] [place] [facility] [address] [facility] [address] Performing Lab: [facility] [place] [facility] [address] [facility] [address] [facility] [place] [facility] CBC AND DIFF (AUTO) ERYTHROCYT ES [#/VOLUME] IN BLOOD BY AUTOMATED COUNT 5.02 10*6/uL 4.23 - 5.66 05/24 Specimen Type: BLOOD No comment entered. Ordering Provider: HIREN PARRA Report Released Date/Time: May 24, 2024 11:32 AM Reporting Lab: [facility] [place] [facility] [address] [facility] [address] Performing Lab: [facility] [place] [facility] [address] [facility] [address] [facility] [place] [facility] CBC AND DIFF (AUTO) HEMOGLOBIN [MASS/VOLU ME] IN BLOOD 14.8 g/dL 12.8 - 17 05/24 Specimen Type: BLOOD No comment entered. Ordering Provider: HIREN PARRA Report Released Date/Time: May 24, 2024 11:32 AM Reporting Lab: [facility] [place] [facility] [address] [facility] [address] Performing Lab: [facility] [place] [facility] [address] [facility] [address] [facility] [place] [facility] CBC AND DIFF (AUTO) HEMATOCRIT [VOLUME FRACTION] OF BLOOD BY AUTOMATED COUNT 43.9 39.2 - 50.4 05/24 Specimen Type: BLOOD No comment entered. Ordering Provider: HIREN PARRA Report Released Date/Time: May 24, 2024 11:32 AM Reporting Lab: [facility] [place] [facility] [address] [facility] [address] Performing Lab: [facility] [place] [facility] [address] [facility] [address] [facility] [place] [facility] CBC AND DIFF (AUTO) MCV [ENTITIC VOLUME] BY AUTOMATED COUNT 87.5 fL 82 - 99 05/24 Specimen Type: BLOOD No comment entered. Ordering Provider: HIREN PARRA Report Released Date/Time: May 24, 2024 11:32 AM Reporting Lab: [facility] CENTERRCHILDREN'[facility] CAMPUSTRN [facility]ENTERUSE[address] [address] Performing Lab: [facility] CENTERRINFIRMARY WESTN [facility]ENTERUSE[facility] [address] [facility] [address] [facility]ENTERRINFIRMARY WESTN [facility]ENTERUSE [facility] CBC AND DIFF (AUTO) MCHC [MASS/VOLU ME] BY AUTOMATED COUNT 33.7 g/dL 30.8 - 35.1 05/24 Specimen Type: BLOOD No comment entered. Ordering Provider: HIREN PARRA Report Released Date/Time: May 24, 2024 11:32 AM Reporting Lab: [facility] CENTERRINFIRMARY WESTN [facility]ENTERUSE[address] [address] Performing Lab: [facility] MED[facility] CENTERRL [facility]N [facility] CENTERUSETS [address] [address] [facility]ENTERRINFIRMARY WESTN [facility]ENTERUSE [facility] CBC AND DIFF (AUTO) PLATELETS [#/VOLUME] IN BLOOD BY AUTOMATED COUNT 123 10*3/uL 140 - 360 05/24 L Specimen Type: BLOOD No comment entered. Ordering Provider: HIREN PARRA Report Released Date/Time: May 24, 2024 11:32 AM Reporting Lab: [facility] CENTERRINFIRMARY WESTN [facility]ENTERUSE[address] [address] Performing Lab: [facility] CENTERRL TRN [facility] CENTERUSETS [address] [address] [facility] CENTERRINFIRMARY WESTN [facility] CENTERUSE [facility] CBC AND DIFF (AUTO) ERYTHROCYT E DISTRIBUTI ON WIDTH [RATIO] BY AUTOMATED COUNT 12.2 12.0 - 16.0 05/24 Specimen Type: BLOOD No comment entered. Ordering Provider: HIREN PARRA Report Released Date/Time: May 24, 2024 11:32 AM Reporting Lab: [facility] CENTERRINFIRMARY WESTN [facility]ENTERUSE[address] [address] Performing Lab: [facility] [place] [facility] [address] [facility] [address] [facility] [place] [facility] CBC AND DIFF (AUTO) MONOCYTES [#/VOLUME] IN BLOOD BY AUTOMATED COUNT 0.54 10*3/uL 0.30 - 1.10 05/24 Specimen Type: BLOOD No comment entered. Ordering Provider: HIREN PARRA Report Released Date/Time: May 24, 2024 11:32 AM Reporting Lab: [facility] [place] [facility] [address] [facility] [address] Performing Lab: [place] [facility] [place] [facility] [address] [facility] [address] [facility] [place] [facility] CBC AND DIFF (AUTO) MCH [ENTITIC MASS] BY AUTOMATED COUNT 29.5 pg 26.2 - 32.6 05/24 Specimen Type: BLOOD No comment entered. Ordering Provider: HIREN PARRA Report Released Date/Time: May 24, 2024 11:32 AM Reporting Lab: [facility] [place] [facility] [address] [facility] [address] Performing Lab: [facility] [place] [facility] [address] [facility] [address] [facility] [place] [facility] CBC AND DIFF (AUTO) NEUTROPHIL S/100 LEUKOCYTES IN BLOOD BY AUTOMATED COUNT 59.6 43.7 - 75.8 05/24 Specimen Type: BLOOD No comment entered. Ordering Provider: HIREN PARRA Report Released Date/Time: May 24, 2024 11:32 AM Reporting Lab: [facility] [place] [facility] [address] [facility] [address] Performing Lab: [facility] [place] [facility] [address] [facility] [address] [facility] [place] [facility] CBC AND DIFF (AUTO) LYMPHOCYTE S/100 LEUKOCYTES IN BLOOD BY AUTOMATED COUNT 26.7 14.0 - 42.3 05/24 Specimen Type: BLOOD No comment entered. Ordering Provider: HIREN PARRA Report Released Date/Time: May 24, 2024 11:32 AM Reporting Lab: [facility] [place] [facility] [address] [facility] [address] Performing Lab: [facility] [place] [facility] [address] [facility] [address] [facility] [place] [facility] CBC AND DIFF (AUTO) MONOCYTES/ 100 LEUKOCYTES IN BLOOD BY AUTOMATED COUNT 9.4 5.1 - 13.7 05/24 Specimen Type: BLOOD No comment entered. Ordering Provider: HIREN PARRA Report Released Date/Time: May 24, 2024 11:32 AM Reporting Lab: [facility] [place] [facility] [address] [facility] [address] Performing Lab: [facility] [place] [facility] [address] [facility] [address] [facility] [place] [facility] CBC AND DIFF (AUTO) EOSINOPHIL S/100 LEUKOCYTES IN BLOOD BY AUTOMATED COUNT 3.5 0.4 - 6.8 05/24 Specimen Type: BLOOD No comment entered. Ordering Provider: HIREN PARRA Report Released Date/Time: May 24, 2024 11:32 AM Reporting Lab: [facility] [place] [facility] [address] [facility] [address] Performing Lab: [facility] [place] [facility] [address] [facility] [address] [facility] [place] [facility] CBC AND DIFF (AUTO) BASOPHILS/ 100 LEUKOCYTES IN BLOOD BY AUTOMATED COUNT 0.3 0.1 - 2.0 05/24 Specimen Type: BLOOD No comment entered. Ordering Provider: HIREN PARRA Report Released Date/Time: May 24, 2024 11:32 AM Reporting Lab: [facility] [place] [facility] [address] [facility] [address] Performing Lab: [facility] [place] [facility] [address] [facility] [address] [facility] [place] [facility] CBC AND DIFF (AUTO) NEUTROPHIL S [#/VOLUME] IN BLOOD BY AUTOMATED COUNT 3.40 10*3/uL 2.20 - 7.60 05/24 Specimen Type: BLOOD No comment entered. Ordering Provider: HIREN PARRA Report Released Date/Time: May 24, 2024 11:32 AM Reporting Lab: [facility] [place] [address] [address] Performing Lab: [facility] [place] [address] [address] [facility] [place] [facility] CBC AND DIFF (AUTO) LYMPHOCYTE S [#/VOLUME] IN BLOOD BY AUTOMATED COUNT 1.53 10*3/uL 1.00 - 3.20 05/24 Specimen Type: BLOOD No comment entered. Ordering Provider: HIREN PARRA Report Released Date/Time: May 24, 2024 11:32 AM Reporting Lab: [facility] [place] [address] [address] Performing Lab: [facility] [place] [address] [address] [facility] [place] [facility] CBC AND DIFF (AUTO) EOSINOPHIL S [#/VOLUME] IN BLOOD BY AUTOMATED COUNT 0.20 10*3/uL 0.03 - 0.44 05/24 Specimen Type: BLOOD No comment entered. Ordering Provider: HIREN PARRA Report Released Date/Time: May 24, 2024 11:32 AM Reporting Lab: [facility] [place] [address] [address] Performing Lab: [facility] [place] [address] [address] [facility] [place] [facility] CBC AND DIFF (AUTO) BASOPHILS [#/VOLUME] IN BLOOD BY AUTOMATED COUNT 0.02 10*3/uL 0.01 - 0.13 05/24 Specimen Type: BLOOD No comment entered. Ordering Provider: HIREN PARRA Report Released Date/Time: May 24, 2024 11:32 AM Reporting Lab: [facility] [place] [address] Performing Lab[facility] [place] [facility] [address] [facility] [address] [facility] [place] [facility] CBC AND DIFF (AUTO) IMMATURE GRANULOCYT ES/100 LEUKOCYTES IN BLOOD BY AUTOMATED COUNT 0.5 0.0 - 0.7 05/24 Specimen Type: BLOOD No comment entered. Ordering Provider: HIREN PARRA Report Released Date/Time: May 24, 2024 11:32 AM Reporting Lab: [facility] [facility] [address] [facility] [address] Performing Lab: [facility] [place] [facility] CENTERUSETS [address] [address] [facility] CENTERRL W[facility]N [facility]ENTERUSE [facility] CBC AND DIFF (AUTO) IMMATURE GRANULOCYT ES [#/VOLUME] IN BLOOD 0.03 10*3/uL 0.00 - 0.06 05/24 Specimen Type: BLOOD No comment entered. Ordering Provider: HIREN PARRA Report Released Date/Time: May 24, 2024 11:32 AM Reporting Lab: [facility] CENTERRL WSTRN [facility] CENTERUSETS [address] [address] Performing Lab: [place] [facility] [place] [facility] CENTERUSETS [address] [address] [facility] CENTERRL TRN [facility]ENTERUSE [facility] CBC AND DIFF (AUTO) NRBC % 0.0 0.0 - 0.0 05/24 Specimen Type: BLOOD No comment entered. Ordering Provider: HIREN PARRA Report Released Date/Time: May 24, 2024 11:32 AM Reporting Lab: [facility]CH[facility] [address] [address] Performing Lab: [facility]ITALCHUSETS [address] [address] [facility] CENTERRL TRN [facility]PITALCHUSE [facility] CBC AND DIFF (AUTO) NRBC, ABS 0.00 10*3/uL 0.00 - 0.00 05/24 Specimen Type: BLOOD No comment entered. Ordering Provider: HIREN PARRA Report Released Date/Time: May 24, 2024 11:32 AM Reporting Lab: [facility] [place] [facility] [address] [facility] [address] Performing Lab: [facility] [place] [facility] [address] [facility] [address] [facility] [place] [facility] THYROID T4 FREE(FT4 ) THYROXINE (T4) FREE [MASS/VOLU ME] IN SERUM OR PLASMA 1.07 ng/dL 0.6 - 1.6 10/17 Specimen Type: SERUM No comment entered. Ordering Provider: HIREN PARRA Report Released Date/Time: Sep 20, 2023 11:16 AM Reporting Lab: [facility] [place] [facility] [address] [facility] [address] Performing Lab: [facility] [place] [facility] [address] [facility] [address] [facility] [place] [facility] Vital Signs Combined list of inpatient and outpatient Vital Signs from Department of Defense and Veterans Affairs, ranging from 12 months to all on record, depending upon the facility. Vital Sign Value Date Comments Source SYSTOLIC BLOOD PRESSURE 120 05/24/20 24 11:11:48 [facility] [place] [facility] DIASTOLIC BLOOD PRESSURE 73 024 11:11:48 [facility] [place] [facility] PULSE OXIMETRY 97 05/24/2024 11:11:48 [facility] [place] [facility] WEIGHT 191 05/24/2024 11:11:48 [facility] [place] [facility] BMI 28 kg/m2 05/24/2024 11:11:48 [facility] [place] [facility] PULSE 61 05/24/2024 11:11:48 [facility] [place] [facility] RESPIRATION 19 05/24/2024 11:11:48 [facility] [place] [facility] SYSTOLIC BLOOD PRESSURE 117 02/16/20 24 10:19:03 [facility] [place] [facility] DIASTOLIC BLOOD PRESSURE 74 024 10:19:03 [facility] [place] [facility] PULSE OXIMETRY 98 02/16/2024 10:19:03 [facility] [place] [facility] WEIGHT 192 02/16/2024 10:19:03 [facility] [place] [facility] BMI 28 kg/m2 02/16/2024 10:19:03 [facility] [place] [facility] PULSE 64 02/16/2024 10:19:03 [facility] [place] [facility] RESPIRATION 19 02/16/2024 10:19:03 [facility] [place] [facility] SYSTOLIC BLOOD PRESSURE 155 10/18/19 24 10:01:52 [facility] [place] [facility] DIASTOLIC BLOOD PRESSURE 78 024 10:01:52 [facility] [place] [facility] PULSE OXIMETRY 97 10/18/2023 10:01:52 [facility] [place] [facility] WEIGHT 196.4 10/18/2023 10:01:52 [facility] [place] [facility] BMI 29 kg/m2 10/18/2023 10:01:52 [facility] [place] [facility] PAIN 4 10/18/2023 10:01:52 [facility] [place] [facility] TEMPERATURE 96.7 10/18/2023 10:01:52 [facility] [place] [facility] PULSE 70 10/18/2023 10:01:52 [facility] [place] [facility] RESPIRATION 16 10/18/2023 10:01:52 [facility] [place] [facility] SYSTOLIC BLOOD PRESSURE 132 09/20/19 24 10:40:08 [facility] [place] [facility] DIASTOLIC BLOOD PRESSURE 74 024 10:40:08 [facility] [place] [facility] PULSE OXIMETRY 98 09/20/2023 10:40:08 [facility] [place] [facility] WEIGHT 196 09/20/2023 10:40:08 [facility] [place] BMI 29 kg/m2 09/20/2023 10:40:08 [facility] [place] [facility] PULSE 59 09/20/2023 10:40:08 [facility] [place] [facility] RESPIRATION 19 09/20/2023 10:40:08 [facility] [place] [facility] Encounters Combined list of: 1) Encounters from Department of Veterans Affairs facilities going backup to the last 18 months, not all VA inpatient encounters are included; 2) Encounters from the Department of Defense facilities going backup to 280 months. Location Location Details Encounter Type Encounter Number Reason For Visit Attending Provider ADM Date DC Date Status Disposition Source [facility]) OUTPATIENT [id number] TIANA HAINES 12/02 Released w/o Limitations [facility]( [facility]) [facility]) OUTPATIENT [id number] TIANA DELCID 12/08 Released w/o Limitations [facility]( [facility]) [facility]) OUTPATIENT [id number] TIANA RIVERO 12/08 Released w/o Limitations [facility]( [facility]) [facility]) OUTPATIENT [id number] CHIDI HAGEN 12/16 Released w/o Limitations [facility]( [facility]) [facility]) OUTPATIENT [id number] CHIDI HAGEN 12/23 Released w/o Limitations [facility]( [facility]) [facility]) OUTPATIENT [id number] CHIDI HAGEN 01/03 [facility]) OUTPATIENT [id number] CHIDI HAGEN 02/24 Released w/o Limitations [facility]( [facility]) [facility]) OUTPATIENT [id number] CHIDI HAGEN 03/09 Sick at Home/Quarter s [place]( [facility]) [facility]) OUTPATIENT [id number] CHIDI HAGEN 03/31 Released with Work/Duty Limitations [facility]( [facility]) [facility]) OUTPATIENT [id number] GERARD KHAN Chris 05/05 Released w/o Limitations [facility]( [facility]) [facility]) OUTPATIENT [id number] GERARD KHAN Chris 05/11 Released w/o Limitations [facility]( [facility]) [place] OUTPATIENT [id number] flu shot GERARD JOYCE 06/22 Released w/o Limitations [place] [place]) [place], DIRECT TO [facility] [id number] JIMMY FULLER 08/24 RETURNED TO DUTY [place] [facility] [place]([facility] 0049) INPATIENT [id number] JIMMY FULLER 08/24 Inpatient- Still a Patient [place]([facility] 0049) [place]) [place] [id number] ICU-IA SOSA JAIMES 08/24 Released w/o Limitations [place] OUTPATIENT [id number] JIMMY FULLER 08/24 Released w/o Limitations [place] [facility]) OUTPATIENT [id number] VIVIAN MARVIN 09/25 Released w/o Limitations [facility]( [facility]) [facility]) OUTPATIENT [id number] BRITTANY HUERTA 01/15 Released w/o Limitations [facility]( [facility]) [facility]) OUTPATIENT [id number] BRITTANY HUERTA 01/30 Released w/o Limitations [facility]( [facility]) [facility]) OUTPATIENT [id number] Immuniz ation ALDANA, KARINA 02/01 Released w/o Limitations [facility]( [facility]) [facility]) OUTPATIENT [id number] IMMUNIZ ATION ALDANA, KARINA 02/05 Released w/o Limitations [facility]( [facility]) [facility]) OUTPATIENT [id number] PPD READING ALDANA, KARINA 02/07 Released w/o Limitations [facility]( [facility]) [facility]) OUTPATIENT [id number] UVALDOBRITTANY RIOS 02/14 Released w/o Limitations [facility]( [facility]) [facility]) OUTPATIENT [id number] BAILON-BRITTANY RIOS 03/01 Released w/o Limitations [facility]( [facility]) [facility]) TELE CONSULT [id number] CONV LEAVE AND MEDICAT ION REFILL CHIDI HAGEN 03/06 [facility]( [facility]) [facility]) OUTPATIENT [id number] BRITTANY HUERTA 03/13 Released with Work/Duty Limitations [facility]( [facility]) [facility]) OUTPATIENT [id number] immuniz atbharath ALDANA, KARINA 04/16 Released w/o Limitations [facility]( [facility]) [employer] [place] ([facility])(Inte rnal Medicine) OUTPATIENT [id number] Atypica l CP / ER Consult JULIO COMER 05/08 Released w/o Limitations [employer] [place] ([facility])(In ternal Medicin e) [place] [place] ([place] [facility])(Card iology) OUTPATIENT [id number] tr jakub JOVITA PARK Sahil 05/21 Released w/o Limitations [employer] [place] ([facility])(Ca rdiolog y) [place] [place] ([facility])(Inte rnal Medicine) OUTPATIENT [id number] f/u (chest pain) JULIO COMER 05/30 Released w/o Limitations [place] [place] ([facility])(In ternal Medicin e) [place] [place] ([facility])(Inte rnal Medicine) OUTPATIENT [id number] ecg DAYDAY, ADRI D 06/06 Released w/o Limitations [place] ([facility])(In ternal Medicin e) [place] ([facility])(AMH M05C WFM Res) OUTPATIENT [id number] XOCHITL CABRAL 06/19 Released w/o Limitations [place] [place] ([facility])(AM H M05C WFM Res) [place] [place] ([facility])(AMH M05D WFM Int) OUTPATIENT [id number] sore throat, headach e , congest ion AYUSH DESAI 06/20 Released w/o Limitations [place] ([facility])(AM H M05D WFM Int) [facility]) OUTPATIENT [id number] CHIDI HAGEN 07/17 Released with Work/Duty Limitations [facility]( [facility]) [facility]) OUTPATIENT [id number] BRITTANY HUERTA 07/25 Released w/o Limitations [facility]( [facility]) [facility](FB -Physical Exams) OUTPATIENT [id number] phy p2 CHIDI HAGEN 08/23 Released w/o Limitations [facility]( [facility]-Phys ical Exams) [facility]) OUTPATIENT [id number] BRITTANY HUERTA 09/11 Released w/o Limitations [facility]( [facility]) [facility]) OUTPATIENT [id number] CHDII HAEGN 10/11 Sick at Home/Quarter s [facility]( [facility]) [facility]) OUTPATIENT [id number] CHIDI HAGEN 10/24 Released with Work/Duty Limitations [facility]( [facility]) [facility]) OUTPATIENT [id number] ELIAS WOLFF BRITTANY 10/31 Sick at Home/Quarter s [facility]( [facility]) [facility]) OUTPATIENT [id number] ELIAS WOLFF BRITTANY 11/02 Released with Work/Duty Limitations [facility]( [facility]) [facility]) OUTPATIENT [id number] ELIAS WOLFF BRITTANY 11/08 Sick at Home/Quarter s [facility]( [facility]) [facility]) OUTPATIENT [id number] triage# 1 CARIN LOVELACE 11/16 Immediate Referral [facility]( [facility]) [facility]) OUTPATIENT [id number] ELIAS WOLFF, BRITTANY 12/31 Released w/o Limitations [facility]( [facility]) [facility]) OUTPATIENT [id number] F-UP ELIAS WOLFF, BRITTANY 01/02 Released w/o Limitations [facility]( [facility]) [facility]) OUTPATIENT [id number] ELIAS WOLFF, BRITTANY 02/13 Sick at Home/Quarter s [facility]( [facility]) [facility]) OUTPATIENT [id number] ELIAS WOLFF BRITTANY 03/20 [facility] with [facility]Duty [facility]) OUTPATIENT [id number] CHIDI HAGEN 03/29 Released with Work/Duty Limitations [facility]( [facility]) [facility]) OUTPATIENT [id number] BRITTANY HUERTA 04/17 Released w/o Limitations [facility]( [facility]) [facility]) OUTPATIENT [id number] BRITTANY HUERTA 04/23 Released w/o Limitations [facility]( [facility]) [facility]) OUTPATIENT [id number] BRITTANY HUERTA 05/02 Released with Work/Duty Limitations [facility]( [facility]) [facility]) OUTPATIENT [id number] KARINA Gonzalez 06/06 Released w/o Limitations [facility]( [facility]) [facility]) OUTPATIENT [id number] BRITTANY HUERTA 06/12 Released w/o Limitations [facility]( [facility]) [facility]) OUTPATIENT [id number] BRITTANY HUERTA 06/21 Sick at Home/Quarter s [facility]( [facility]) [facility]) OUTPATIENT [id number] BRITTANY HUERTA 07/15 Sick at Home/Quarter s [facility]( [facility]) [facility]) OUTPATIENT [id number] for silva FABIOLA PADILLA 07/18 Released w/o Limitations [facility]( [facility]) [facility]) OUTPATIENT [id number] BRITTANY HUERTA 08/09 Sick at Home/Quarter s [facility]( [facility]) OUTPATIENT [id number] BRITTANY HUERTA 09/19 Released w/o Limitations [facility]( [facility]) [facility]) OUTPATIENT [id number] BRITTANY HUERTA 09/26 Released w/o Limitations [facility]( [facility]) [facility](FB -Physical Exams) OUTPATIENT [id number] 1st part physica l exam ADIEL CHAVEZ I 10/24 Released w/o Limitations [facility]( [facility]-Phys ical Exams) [facility]) OUTPATIENT [id number] BRITTANY HUERTA 10/25 Released w/o Limitations [facility]( [facility]) [facility](FB -Physical Exams) OUTPATIENT [id number] physica l exam KOBE ALFORD 11/21 Released w/o Limitations [facility]( [facility]-Phys ical Exams) [facility]) OUTPATIENT [id number] BRITTANY HUERTA 11/25 Released w/o Limitations [facility]( [facility]) [facility]) OUTPATIENT [id number] BRITTANY HUERTA 12/02 Released w/o Limitations [facility]( [facility]) [facility]) OUTPATIENT [id number] BRITTANY HUERTA 02/21 Released w/o Limitations [facility]( [facility]) [facility]) OUTPATIENT [id number] orders 12 days no reffera l BRITTANY HUERTA 02/03 Sick at Home/Quarter s [facility]( [facility]) [facility](AM H F01A Diandra Hassan) OUTPATIENT [id number] LOWER BACK PAIN DICK PINZON 06/03 Released with Work/Duty Limitations [facility]( [facility] F01A Diandra Hassan) [facility] CHIROPRACT MANJ 1-2 [facility] [id number] [id number] Diagnos is: ICD-10- CM M54.59 Other low back pain AYANA MCKEON 03/01 [facility] FIT SPECTACLES MULTIFOCAL 98885-2.63 [id number] Diagnos is: ICD-10- CM Z46.0 Encount er for fit/adj st of spectac les and contact lenses ANMOL NAVA 03/01 [facility] Outpatient Encounter [id number] 03/04 [facility] SPEECH/HEA RING THERAPY 01505-7.63 [id number] Diagnos is: ICD-10- CM R47.89 Other speech disturb ances YESSENIA,S ARA 03/05 [facility] SPEECH/HEA RING THERAPY 98433-3.63 [id number] Diagnos is: ICD-10- CM R47.89 Other speech disturb ances YESSENIA,S ARA 03/26 [facility] Outpatient Encounter [id number] 03/29 [facility] SPEECH/HEA RING THERAPY 04613-1.63 [id number] Diagnos is: ICD-10- CM R47.89 Other speech disturb ances YESSENIA,S ARA 04/09 [facility] COLLJ & INTERPJ DATA EA 30 D [id number] [id number] Diagnos is: ICD-10- CM G47.30 Sleep apnea, unspeci fiFRIDA Ocampo 04/12 [facility] OT EVAL LOW COMPLEX 30 MIN 35250-7.63 [id number] Diagnos is: ICD-10- CM G56.00 Carpal tunnel syndrom e, unspeci fied upper limb MACHON,DANNY LIE E 04/13 [facility] HEARING AID REPAIR/MOD IFYING 10843-9.63 [id number] Diagnos is: ICD-10- CM Z46.1 Encount er for fitting and adjustm ent of hearing aid MATI FREEDMANMagda NIEVES 04/20 [facility] Outpatient Encounter [id number] 05/05 [facility] OFF/OP EST MAY X REQ PHY/QHP [id number] [id number] Diagnos is: ICD-10- CM Z04.9 Encount er for examina tion and observa tion for unsp reason MONET SILVA L 05/17 [facility] OFFICE O/P EST MOD 30-39 MIN 20507-4.63 [id number] Diagnos is: ICD-10- CM G43.909 Migrain e, unsp, not intract able, without status migrain osus HIREN VILLASENOR 05/17 [facility] PSYTX W PT 30 MINUTES 95806-1.63 [id number] Diagnos is: ICD-10- CM F43.12 Post-tr aumatic stress disorde r, chronic COOKSARAY ON A 05/17 [facility] HEARING AID EXAM BOTH EARS 48349-0.63 [id number] Diagnos is: ICD-10- CM H90.3 Sensori neural hearing loss, MATI Salcido 05/18 [facility] PSYTX W PT W E/M 30 MIN 01811-6.63 [id number] Diagnos is: ICD-10- CM F43.12 Post-tr aumatic stress disorde r, chronic SHUKRI,A REGINE A 05/18 [facility] ULTRASOUND THERAPY 70898-063 [id number] Diagnos is: ICD-10- CM G56.00 Carpal tunnel syndrom e, unspeci fied upper limb MACHON,DANNY LIE E 05/19 [facility] ULTRASOUND THERAPY 03516-163 [id number] Diagnos is: ICD-10- CM G56.00 Carpal tunnel syndrom e, unspeci fied upper limb MACHON,DANNY LIE E 05/25 [facility] MANUAL THERAPY [place] 06587-3.63 [id number] Diagnos is: ICD-10- CM G56.00 Carpal tunnel syndrom e, unspeci fied upper limb MACHON,DANNY LIE E 05/31 [facility] PSYTX W PT 30 MINUTES 37752-2.63 [id number] Diagnos is: ICD-10- CM F33.1 Major depress yamile disorde r, recurre nt, moderat e DEVON,ALLIS ON A 06/02 [facility] ULTRASOUND THERAPY 57327-863 [id number] Diagnos is: ICD-10- CM G56.00 Carpal tunnel syndrom e, unspeci fied upper limb MACHON,DANNY LIE E 06/02 [facility] PSYTX W PT 30 MINUTES 45128-7.63 [id number] Diagnos is: ICD-10- CM F33.1 Major depress yamile disorde r, recurre nt, moderat e DEVON,ALLIS ON A 06/16 [facility] CONFORMITY EVALUATION 08230-2.63 [id number] Diagnos is: ICD-10- CM Z46.1 Encount er for fitting and adjustm ent of hearing aid ALANA FREEDMANLIAT MACIASMagda NIEVES 06/16 [facility] ULTRASOUND THERAPY 35533-9 [id number] Diagnos is: ICD-10- CM G56.00 Carpal tunnel syndrom e, unspeci fied upper limb MACHON,DANNY LIE E 06/16 [facility] ULTRASOUND THERAPY 57879-4.63 [id number] Diagnos is: ICD-10- CM G56.00 Carpal tunnel syndrom e, unspeci fied upper limb MACHON,DANNY LIE E 06/23 [facility] PSYTX W PT 30 MINUTES 98063-9.63 [id number] Diagnos is: ICD-10- CM F33.1 Major depress yamile disorde r, recurre nt, moderat e DEVON,ALLIS ON A 06/30 [facility] Outpatient Encounter [id number] [id number] 07/05 [facility] HC PRO PHONE CALL 21-30 MIN 24558-6.63 [id number] Diagnos is: ICD-10- CM F43.12 Post-tr aumatic stress disorde r, chronic JEANETTE GREENE RI LIDA 07/07 [facility] Out[facility] Encounter [id number] [id number] 07/07 [facility] Outpatient Encounter [id number] [id number] 07/14 [facility] Outpatient Encounter [id number] [id number] 07/15 [facility] Outpatient Encounter [id number] [id number] JEANETTE GREENE RI LIDA 07/22 [facility] Outpatient Encounter [id number] [id number] 07/27 [facility] HC PRO PHONE CALL 11-20 MIN [id number] [id number] Diagnos is: ICD-10- CM F43.12 Post-tr aumatic stress disorde r, chronic JEANETTE GREENE RI LIDA 08/04 [facility] Outpatient Encounter [id number] [id number] 08/09 [facility] ([facility] HC PRO PHONE CALL 11-20 MIN 35311-4.63 [id number] Diagnos is: ICD-10- CM F43.12 Post-tr aumatic stress disorde r, chronic JEANETTE GREENE RI LIDA 08/12 [facility] (631GE) [facility] HC PRO PHONE CALL 11-20 MIN 04507-2.63 [id number] Diagnos is: ICD-10- CM F43.12 Post-tr aumatic stress disorde r, chronic LABELLA,KE RI LIDA 08/19 [facility] HC PRO PHONE CALL 5-10 MIN [id number] [id number] Diagnos is: ICD-10- CM F43.12 Post-tr aumatic stress disorde r, chronic LABELLA,KE RI LIDA 08/23 [facility] Outpatient Encounter [id number] [id number] 09/07 [facility] Outpatient Encounter [id number] [id number] 09/10 [facility] GROUP PSYCHOTHER APY 44930-6.63 [id number] Diagnos is: ICD-10- CM F43.12 Post-tr aumatic stress disorde r, chronic MALINOFSKY ,LENY 09/11 [facility] Outpatient Encounter [id number] [id number] LABELLA,KE RI LIDA [facility] Outpatient Encounter [id number] [id number] 09/17 [facility] OFFICE O/P EST MOD 30 MIN 09264-6.63 [id number] Diagnos is: ICD-10- CM M54.50 Low back pain, unspeci fiHIREN Vernon 09/19 [facility] Out[facility] Encounter [id number] [id number] 09/20 [facility] Out[facility] Encounter [id number] [id number] 09/23 [facility] GROUP PSYCHOTHER APY [id number] [id number] Diagnos is: ICD-10- CM F43.12 Post-tr aumatic stress disorde r, chronic MALINOFSKY ,LEYN 09/24 [facility] HC PRO PHONE CALL 5-10 MIN [id number] [id number] Diagnos is: ICD-10- CM F43.12 Post-tr aumatic stress disorde r, chronic LABELLA,KE RI LIDA 09/29 [facility] PSYTX W PT 30 MINUTES 61989-5.63 [id number] Diagnos is: ICD-10- CM F43.12 Post-tr aumatic stress disorde r, chronic MALINOFSKY ,LENY 10/01 [facility] PSYTX W PT 30 MINUTES 26791-8.63 [id number] Diagnos is: ICD-10- CM F33.1 Major depress yamile disorde r, recurre nt, moderat e COOK,ALLIS ON A 10/06 [facility] HC PRO PHONE CALL 11-20 MIN 50061-3.63 [id number] Diagnos is: ICD-10- CM F43.12 Post-tr aumatic stress disorde r, chronic LABELLA,KE RI LIDA 10/13 [facility] OFF/OP CONSLTJ NEW/EST HI 55 42299-1.63 [id number] Diagnos is: ICD-10- CM G47.30 Sleep apnea, unspeci fiKAREEN Navarro R 10/17 [facility] Outpatient Encounter [id number] [id number] 10/18 [facility] HC PRO PHONE CALL 21-30 MIN [id number] [id number] Diagnos is: ICD-10- CM F43.12 Post-tr aumatic stress disorde r, chronic LABELLA,KE RI LIDA 11/10 [facility] Outpatient Encounter [id number] [id number] 11/17 [facility] HC PRO PHONE CALL 11-20 MIN [id number] [id number] Diagnos is: ICD-10- CM F43.12 Post-tr aumatic stress disorde r, chronic LABELLA,KE RI LIDA 11/21 [facility] HC PRO PHONE CALL 11-20 MIN 61002-7.63 [id number] Diagnos is: ICD-10- CM F43.12 Post-tr aumatic stress disorde r, chronic LABELLA,KE RI LIDA 12/06 [facility] HC PRO PHONE CALL 21-30 MIN [id number] [id number] Diagnos is: ICD-10- CM F43.12 Post-tr aumatic stress disorde r, chronic LABELLA,KE RI LIDA 01/26 [facility] Outpatient Encounter [id number] [id number] 02/02 [facility] Out[facility]counter [id number] [id number] 02/03 [facility] Outpatient Encounter [id number] [id number] 02/14 [facility] OFFICE O/P EST MOD 30 MIN 70365-4.63 [id number] Diagnos is: ICD-10- CM M54.2 Cervica vuia HIREN VILLASENOR 02/15 [facility] PSYTX W PT 30 MINUTES 32498-1.63 [id number] Diagnos is: ICD-10- CM F43.12 Post-tr aumatic stress disorde r, chronic KELLY DESOUZA T 02/15 [facility] Outpatient Encounter [id number] 03/01 [facility] HC PRO PHONE CALL 11-20 MIN [id number] [id number] Diagnos is: ICD-10- CM F43.12 Post-tr aumatic stress disorde r, chronic JEANETTE GREENE 03/01 [facility] Outpatient Encounter [id number] [id number] 03/01 [facility] HC PRO PHONE CALL 11-20 MIN [id number] [id number] Diagnos is: ICD-10- CM F43.12 Post-tr aumatic stress disorde r, chronic LABELLA,KE RI LIDA 03/02 [facility] Outpatient Encounter [id number] [id number]/10 [facility] Outpatient Encounter [id number] [id number] 03/13 [facility] PSYTX W PT 45 MINUTES 33212-6.63 1. Diagnos is: ICD-10- CM F43.12 Post-tr aumatic stress disorde r, chronic COOK,ALLIS ON A 03/30 [facility] Outpatient Encounter [id number] [id number] 04/13 [facility] PSYTX W PT 45 MINUTES 91391-9.63 [id number] Diagnos is: ICD-10- CM F33.1 Major depress yamile disorde r, recurre nt, moderat e COOK,ALLIS ON A 04/25 [facility] Out[facility] Encounter [id number] [id number] [facility] Outpatient Encounter 56093-8.63 1.05/03 [facility] PSYTX W PT 30 MINUTES [id number] [id number] Diagnos is: ICD-10- CM F43.12 Post-tr aumatic stress disorde r, chronic COOK,ALLIS ON A 05/09 [facility] PSYTX W PT 45 MINUTES [id number] [id number] Diagnos is: ICD-10- CM F33.1 Major depress aymile disorde r, recurre nt, moderat e DEVON,ALLIS ON A 05/23 [facility] Outpatient Encounter [id number] 05/24 [facility] OFFICE O/P EST LOW 20 MIN [id number] 1. Diagnos is: ICD-10- CM G43.909 Migrain e, unsp, not intract able, without status migrain HIREN Spann 05/24 [facility] Outpatient [facility]counter [id number] 05/25 [facility] MTMS BY PHARM ADDL 15 MIN [id number] Diagnos is: ICD-10- CM F33.1 Major depress yamile disorde r, recurre nt, moderat e MAUREEN SANCHEZ 05/26 [facility] Outpatient [facility]counter [id number] 06/13 [facility] Outpatient [facility]counter [id number] 06/14 [facility] PSYTX W PT 30 MINUTES [id number] Diagnos is: ICD-10- CM F33.1 Major depress yamile disorde r, recurre nt, moderat e DEVON,ALLIS ON A 06/20 [facility] [id number] [facility] [id number] [facility] [id number] 07/03 [facility] [id number] 07/05 [facility] PSYTX W PT 30 MINUTES [id number] Diagnos is: ICD-10- CM F33.1 Major depress yamile disorde r, recurre nt, moderat e COOK,ALLIS ON A 07/06 [facility] [id number] 07/11 [facility] [id number] 07/13 [facility] PSYTX W PT 45 MINUTES [id number] Diagnos is: ICD-10- CM F33.1 Major depress yamile disorde r, recurre nt, moderat e COOK,ALLIS ON A 07/25 [facility] PSY[facility] W PT 30 MINUTES [id number] Diagnos is: ICD-10- CM F33.1 Major depress yamile disorde r, recurre nt, moderat e COOK,ALLIS ON A 08/08 [facility] SYNCH AUDIO-VIDE O NEW LOW 30 [id number] Diagnos is: ICD-10- CM G44.41 Drug-in duced headach e, not elsewhe re classif ied, intract able MAXWELL QUEZADA 08/[address] [facility] Outpatient Encounter [id number] 08/15 [facility] [place] [facility] [place] [facility] Outpatient Encounter [id number] 08/25 [facility] Procedures Combined list of: 1) Procedures from Department of Veterans Affairs facilities going back up to thelast 18 months, not all [place] non-surgical procedures are included; 2) All procedures from the Department of Defense facilities. Procedure Procedure Type Code Date Perfomer Comments Sourc e CARDIOVASCULAR STRESS TEST USING MAXIMAL OR SUBMAXIMAL TREADMILL OR BICYCLE EXERCISE,CONTINUOUS ELECTROCARDIOGRAPHIC MONITORING,AND/OR PHARMACOLOGICAL STRESS;W SUPERVISION,INTERPRETA TION AND REPORT 2007 [facility] INTRAVENOUS INFUSION, FOR THERAPY, PROPHYLAXIS, OR DIAGNOSIS (SPECIFY SUBSTANCE OR DRUG); INITIAL, UP TO 1 HOUR 2007 [facility] INFLUENZA VIRUS VACCINE, TRIVALENT (IIV3), SPLIT VIRUS, 0.5 ML DOSAGE, FOR INTRAMUSCULAR USE 2006 [facility] SKIN TEST; TUBERCULOSIS, INTRADERMAL 2007 [facility]D ELECTROCARDIOGRAM, ROUTINE ECG WITH AT LEAST 12 LEADS; INTERPRETATION AND REPORT ONLY 2007 [facility] CARDIOVASCULAR STRESS TEST USING MAXIMAL OR SUBMAXIMAL TREADMILL OR BICYCLE EXERCISE,CONTINUOUS ELECTROCARDIOGRAPHIC MONITORING,AND/OR PHARMACOLOGICAL STRESS;W SUPERVISION,INTERPRETA TION AND REPORT 2007 [facility] ELECTROCARDIOGRAM, ROUTINE ECG WITH AT LEAST 12 LEADS; WITH INTERPRETATION AND REPORT 2007 [facility] INFUSION, NORMAL SALINE SOLUTION, 250 CC 2007 DoD INJECTION, KETOROLAC TROMETHAMINE, PER 15 MG 2016 DoD INJECTION, KETOROLAC TROMETHAMINE, PER 15 MG 2010 DoD INJECTION, ORPHENADRINE CITRATE, UP TO 60 MG 2009 DoD SCREENING TEST OF VISUAL ACUITY, QUANTITATIVE, BILATERAL 04/08/ 2010 [facility] UNLISTED THERAPEUTIC PROCEDURE (SPECIFY) 2009 DoD UNLISTED THERAPEUTIC PROCEDURE (SPECIFY) 2009 [facility] PATIENT EDUCATION, NOT OTHERWISE CLASSIFIED, NON-PHYSICIAN PROVIDER, INDIVIDUAL, PER SESSION 2008 [facility]D UNLISTED THERAPEUTIC PROCEDURE (SPECIFY) 2008 DoD UNLISTED THERAPEUTIC PROCEDURE (SPECIFY) 2008 [facility] PATIENT EDUCATION, NOT OTHERWISE CLASSIFIED, NON-PHYSICIAN PROVIDER, INDIVIDUAL, PER SESSION 2008 [facility] UNLISTED THERAPEUTIC PROCEDURE (SPECIFY) 2008 DoD UNLISTED THERAPEUTIC PROCEDURE (SPECIFY) 2008 DoD INJECTION, RANITIDINE HYDROCHLORIDE, 25 MG 2008 DoD INJECTION, KETOROLAC TROMETHAMINE, PER 15 MG 2008 [facility] PATIENT EDUCATION, NOT OTHERWISE CLASSIFIED, NON-PHYSICIAN PROVIDER, INDIVIDUAL, PER SESSION 2007 [facility] SKIN TEST; TUBERCULOSIS, INTRADERMAL 2007 [facility] PATIENT EDUCATION, NOT OTHERWISE CLASSIFIED, NON-PHYSICIAN PROVIDER, INDIVIDUAL, PER SESSION 2007 [facility] ELECTROCARDIOGRAM, ROUTINE ECG WITH AT LEAST 12 LEADS; WITH INTERPRETATION AND REPORT 2007 [facility] INJECTION, PROMETHAZINE HCL, UP TO 50 MG 2006 [facility] SKIN TEST; TUBERCULOSIS, INTRADERMAL 2006 [facility] HEPATITIS A VACCINE (HEPA), ADULT DOSAGE, FOR INTRAMUSCULAR USE 2006 [facility] Injection, ketorolac tromethamine, per 15 mg 2016 DICK PINZON 2 identifiers asked and name [id number] adm 2cc im l buttock advise to remain in tx rm x 15 minutes and to infirm of any adverse reactions at 0820 exp date 01/04 lot [id number] [facility] Inhalation Treatment (Nonpre urized) Inhalation Treatment (Nonpressurized) [id number] 2010 BRITTANY CAAL resp therapy pulmicort at 0900 resp therapy n/ss 3cc at 0930 DoD Injection, ketorolac tromethamine, per 15 mg 2010 BRITTANY CAAL torador 60mg adm 2cc im r buttock norflex 60mg adm 2cc im l buttock advise to remain in tx rm x 15 minutes at 0925 tens and hotpad applied at 0900 DoD Injection, orphenadrine citrate, up to 60 mg 2010 BRITTANY CAAL Physical Therapy - Unlisted Therapeutic Procedure Physical Therapy - Unlisted Therapeutic Procedure 58731 2010 BRITTANY CAAL [facility] Physician Supervised Injection Intramuscular Physician Supervised Injection Intramuscular 78762 2010 BRITTANY CAAL Physician Supervised Injection Intramuscular Physician Supervised Injection Intramuscular 82178 2009 CARIN ARAGONador 60mg adm 2cc im l buttock norflex 60mg adm 2cc im l buttock advise to remain in tx rm x 15 minutes at 0730 [facility] Injection, ketorolac tromethamine, per 15 mg 2009 CARIN ARAGON Injection, orphenadrine citrate, up to 60 mg 2009 CARIN ARAGON Screening Test Of Visual Acuity, Quantitative, Bilateral Screening Test Of Visual Acuity, Quantitative, Bilateral 30070 2009 ADIEL CHAVEZ [facility] Blood Glucose Blood Glucose 11984 2009 ADIEL CHAVEZ I [facility] Audiogram (Screening) Audiogram (Screening) 77129 2009 CHRISTY CHAVEZECA I [facility] Lipids Test Panel Lipids Test Panel 17471 10/24 ADIEL CHAVEZ I [facility] Venous Pre ure Venous Pressure 73231 2009 ADIEL CHAVEZ I [facility] Serum Prostate-Specific Antigen (PSA) Total Serum Prostate-Specific Antigen (PSA) Total 97511 2009 ADIEL CHAVEZ [facility] Electrocardiogram Electrocardiogram 80665 10/24 ADIEL CHAVEZ I [facility] Routine Urinalysis With Microscopic Examination Routine Urinalysis With Microscopic Examination 55429 2009 ADIEL CHAVEZ I [facility] Blood Counts - CBC Blood Counts - CBC 60245 2009 ADIEL CHAVEZ I [facility] Physical Therapy - Unlisted Therapeutic Procedure Physical Therapy - Unlisted Therapeutic Procedure 84667 2009 BRITTANY CAAL tens therapy applied at 0915 [facility] Physician Supervised Injection Intramuscular Physician Supervised Injection Intramuscular 99492 2009 BRITTANY CAAL 60mg adm 2cc im l buttock advise to remain in tx rm x 15 minutes at 0900 [facility] Injection, ketorolac tromethamine, per 15 mg 2009 BRITTANY CAAL Physical Therapy - Unlisted Therapeutic Procedure Physical Therapy - Unlisted Therapeutic Procedure 55895 2009 BRITTANY CAAL tens therapy applied at 0830 DoD Patient education, not otherwise cla ified, non-physician provider, individual, per se ion 2008 KARINA ALDANA VIS given Influenza A 2008 H1N1 [facility] Influenza Virus Vaccine Pandemic Formulation Influenza Virus Vaccine Pandemic Formulation 86667 2008 KARINA ALDANA 0.5ml administered IM in L deltoid [facility] Immunization Administration By Injection, One Vaccine Immunization Administration By Injection, One Vaccine 88701 2008 KARINA ALDANA Physical Therapy - Unlisted Therapeutic Procedure Physical Therapy - Unlisted Therapeutic Procedure 63068 2008 BRITTANY CAAL tens therapy at 0750 [facility] Injection, ketorolac tromethamine, per 15 mg 2008 BRITTANY CAAL 60mg adm 2cc im l buttock norflex 60mg adm 2cc im l buttock advise to remain in tx rm x 15 minutes at 0750 [facility] Physician Supervised Injection Intramuscular Physician Supervised Injection Intramuscular 78952 2008 BRITTANY CAAL Injection, orphenadrine citrate, up to 60 mg 2008 BRITTANY CAAL Physical Therapy - Unlisted Therapeutic Procedure Physical Therapy - Unlisted Therapeutic Procedure 46247 2008 BRITTANY CAAL 60mg adm 2cc im l buttock norflex 60mg adm 2cc im l buttock advise to remain in tx rm x 15 minutes at 0830 Ten applied at 0830 [facility] Injection, ketorolac tromethamine, per 15 mg 2008 BRITTANY CAAL [facility] Injection, orphenadrine citrate, up to 60 mg 2008 BRITTANY CAAL Patient education, not otherwise cla ified, non-physician provider, individual, per se ion 2008 KARINA ALDANA VIS given [facility] Influenza Split Virus Vaccine 0.5mL Dosage Intramuscular Preservative Free 2008 KARINA ALDANA [facility] Immunization Administration By Injection, One Vaccine Immunization Administration By Injection, One Vaccine 81556 2008 KARINA ALDANA [facility] Physical Therapy - Unlisted Therapeutic Procedure Physical Therapy - Unlisted Therapeutic Procedure 38491 2008 BRITTANY CAAL 60mg adm 2cc im r buttock advise to remain in tx rm x 15 minutes at 0810 tense adm at 0825 [facility] Injection, ketorolac tromethamine, per 15 mg 2008 BRITTANY CAAL Physical Therapy - Unlisted Therapeutic Procedure Physical Therapy - Unlisted Therapeutic Procedure 80445 2008 BRITTANY CAAL 60mg adm 2cc im r butock advise to remain in tx rm [facility] Injection, ketorolac tromethamine, per 15 mg 2008 BRITTANY CAAL Physician Supervised Injection Intramuscular Physician Supervised Injection Intramuscular 94527 2008 BRITTANY CAAL Injection, ranitidine HCl, 25 mg 2008 BRITTANY CAAL zantac 25mg adm 2cc iv with 22 angiocath l hand IN .9% N/SS 100ML at 0805 [id number] rocephin 1gm adm 1gm with main iv line at 0900 [facility] Infusion, normal saline solution, sterile (500 mL = 1 unit) 2008 BRITTANY CAAL [facility] Injection, ketorolac tromethamine, per 15 mg 2008 CARIN ARAGON 60mg adm 2cc im l buttock norflex 60mg adm 2cc im l buttock advise to remain in tx rm x 15 minutes at 0955 tense adm at 1000 [facility] Injection, orphenadrine citrate, up to 60 mg 2008 CARIN ARAGON Physician Supervised Injection Intramuscular Physician Supervised Injection Intramuscular 36357 2008 CARIN ARAGON Skin Test Anergy Tuberculin Intradermal Skin Test Anergy Tuberculin Intradermal 35358 2007 XOCHITL WEBB [facility] Influenza Split Virus Vaccine 0.25mL Dosage Intramuscular Preservative Free 2007 XOCHITL WEBB [facility] Immunization Administration By Injection, One Vaccine Immunization Administration By Injection, One Vaccine 95810 2007 XOCHITL EWBB Fluzone .5ml given intramuscular in left deltoid, PPD placed in LFA by Xochitl Webb LPN [facility] ECG Interpretation And Report Only ECG Interpretation And Report Only 37690 2007 ADRI NAYLOR [facility] Cardiac Stre Test With Physician Supervision, Interpretation, And Report Cardiac Stress Test With Physician Supervision, Interpretation, And Report 47207 2007 JOVITA PARK [facility] ECG 12-Lead With Interpretation And Report ECG 12-Lead With Interpretation And Report 00998 2007 JULIO COMER [facility] Patient education, not otherwise cla ified, non-physician provider, individual, per se ion 2007 ALDANA, KARINA VIS given DoD Influenza Split Virus Vaccine 0.5mL Dosage Intramuscular 2007 ALDANA KARINA DoD Immunization Administration By Injection, One Vaccine Immunization Administration By Injection, One Vaccine 10060 2007 JOVAN KARINA Vaccine administered on [id number]. [facility] Skin Test Anergy Tuberculin Intradermal Skin Test Anergy Tuberculin Intradermal 73278 2007 KARINA ALDANA PPD 0.1ml planted intradermal in L forearm. DoD Immunization Administration By Injection, One Vaccine Immunization Administration By Injection, One Vaccine 00901 2007 ALDANA, KARINA DoD Patient education, not otherwise cla ified, non-physician provider, individual, per se ion 2007 ALDANA, KARINA Hep A VIS given. DoD Immunization Administration By Injection, One Vaccine Immunization Administration By Injection, One Vaccine 93079 2007 ALDANA, KARINA DoD Hepatitis A Vaccine Adult Dosage (Intramuscular Use) Hepatitis A Vaccine Adult Dosage (Intramuscular Use) 16877 2007 KARINA ALDANA Hep A vaccine 1ml administered IM in L deltoid region. [facility] Cardiac Stre Test With Physician Supervision, Interpretation, And Report Cardiac Stress Test With Physician Supervision, Interpretation, And Report 65390 2007 JIMMY FULLER [facility] Influenza Split Virus Vaccine 0.5mL Dosage Intramuscular 2006 GERARD JOYCE [facility] Immunization Administration By Injection, One Vaccine Immunization Administration By Injection, One Vaccine 33176 2006 GERARD JOYCE A [facility] Injection, promethazine HCl, up to 50 mg 2006 CHIDI HAGEN promethazine 25mg adm 1cc im r buttock advise to remain in tx rm until futher eval by at 1005 DoD Injection, ranitidine HCl, 25 mg 2006 CHIDI HAGEN zantac 25mg adm 2cc iv l arm anticubical area at 1000 DoD Skin Test Anergy Tuberculin Intradermal Skin Test Anergy Tuberculin Intradermal 51281 2006 [facility] JOANN [facility] Immunization Administration By Injection, Each Additional Vaccine 2006 [facility] Immunization Administration By Injection, One Vaccine Immunization Administration By Injection, One Vaccine 00648 2006 [facility] Vaccines Viral Polio, Inactivated Vaccines Viral Polio, Inactivated 65577 2006 [facility] Vaccines Viral Measles, Mumps, Rubella, Varicella (Active) Vaccines Viral Measles, Mumps, Rubella, Varicella (Active) 82684 2006 [facility] DTaP Vaccine DTaP Vaccine 65170 2006 [facility] Hepatitis A Vaccine Adult Dosage (Intramuscular Use) Hepatitis A Vaccine Adult Dosage (Intramuscular Use) 65289 2006 [facility] Social History Combined list of available smoking, tobacco, and other social history from Department of Defense and Veterans Affairs facilities. Social History Type Response Date Comment Sourc e Tobacco smoking status NCIS [facility] NEVER USED 05/24/2024 [facility] [place] History of tobacco use VA-TOBACCO NEVER USED 05/17/2023 [facility] History of tobacco use VA-TOBACCO NEVER USED 03/26/2022 [facility] History of tobacco use VA-TOBACCO NEVER USED 03/26/2021 [facility] History of tobacco use VA-TOBACCO NEVER USED 04/16/2020 [facility] History of tobacco use VA-TOBACCO NEVER USED 01/10/2019 [facility] History of tobacco use LIFETIME NON-TOBACCO USER 03/31/2018 [facility] [place] [facility] History of tobacco use LIFETIME NON-TOBACCO USER 03/08/2017 [facility] [place] [facility] History of tobacco use LIFETIME NON-TOBACCO USER 06/12/2015 [facility] History of tobacco use LIFETIME NON-TOBACCO USER 02/14/2014 [facility] This section is an empty social history section. DoD Plan of Care List of future care activities from Department of Veterans Affairs facilities. Additional future care activities may be listed in the Assessment and Plan section. Date/Time Care Activity Care Activity Detail Facili ty 09/05/2024 AMBULATORY - PSYCHIATRY AMBULATORY - PSYC HIATRY [facility] [place] [facility] 09/14/2024 AMBULATORY - MEDICINE AMBULATORY - MEDICI NE [facility] [place] [facility] 09/19/2024 AMBULATORY - PSYCHIATRY AMBULATORY - PSYC HIATRY [facility] [place] [facility] 11/29/2024 AMBULATORY - MEDICINE AMBULATORY - MEDICI NE [facility] [place] [facility] 01/03/2025 AMBULATORY - MEDICINE AMBULATORY - MEDICI NE [facility] [place] [facility] 08/26/2024 Consult Order [facility] [place] Professor's Choice [facility] [place] [facility]
--- OUTSIDE RECORDS SUMMARY | 2024-08-31 19:53 | XMS_ITS ---
Author Name [facility] [place] [facility] [place] [facility] [place] Address [address] [place] [address] Care Team Providers Care X Ray Technician Name Role Phone HIREN TUTTLE Primary Care [...] STAND JORGITO Jul 19, 2019 MEDICAI D [id number] ANDRADEBraxton CHEN PATIENT MEDICAID MEDICAID MEDIC AID Jul 19, 2015 DO NOT BILL [id number] ANDRADEBraxton PATIENT Selected Encounter This section includes the information on record at [place] for the Encounter. Date/Time Encounter Type Encounter Description Reason Provider Source Apr 25, 2024 10:00 AM PSYTX W PT 45 MINUTES [facility] - IND ICD-10-CM F33.1 Major depressive disorder, recurrent, moderate MARCELLA OSORIO Encounter Template Text not used by [facility] Assessments - Encounter Diagnoses This section includes the primary and secondary diagnoses documented for the Encounter. Date/Time Primary/Secondary Diagnosis Diagnosis Name Provider Source Apr 25, 2024 12:37 PM PRIMARY Major depressive disorder, recurrent, moderate COOK,MARCELLA A [place] [facility] [place] [facility] Plan of Treatment: Future Appointments (+ 6 months) and Future Tests (+/- 45 days) The Plan of Treatment section includes future care activities for the patient from all [place] treatmentfacilities. This section includes future appointments and future orders which are active, pending or scheduled. Future Appointments This section includes appointments that were scheduled to occur 6 months from the date of the Encounter, up to a maximum of 20 appointments. The data comes from all [place] treatment facilities. Appointment Date/Time Appointment Type Appointme nt Facility Name May 03, 2024 10:00 AM AMBULATORY - PSYCHIATRY [facility] [place] [facility] May 09, 2024 10:00 AM AMBULATORY - PSYCHIATRY [facility] [place] [facility] May 23, 2024 10:00 AM AMBULATORY - PS[facility]CHIATRY [facility] [place] [facility] May 24, 2024 11:00 AM AMBULATORY - MEDICINE [facility] [place] [facility] May 26, 2024 01:00 PM AMBULATORY - PSYCHIATRY [facility] [place] [facility] Jun 20, 2024 09:30 AM AMBULATORY - PS[facility]CHIATRY [facility] [place] [facility] Jun 23, 2024 02:00 PM AMBULATORY - PSYCHIATRY [facility] [place] [facility] Jul 05, 2024 08:30 AM AMBULATORY - PSYCHIATRY [facility] [place] [facility] Jul 06, 2024 11:00 AM AMBULATORY - PSYCHIATRY [facility] [place] [facility] Jul 25, 2024 11:30 AM AMBULATORY - PS[facility]CHIATRY [facility] [place] [facility] Aug 08, 2024 10:00 AM AMBULATORY - PSYCHIATRY [facility] [place] [facility] Aug 15, 2024 01:00 PM AMBULATORY - NEUROLOGY [facility] [place] [facility] Aug 15, 2024 01:00 PM AMBULATORY - NE[place]OLOGY [place] [facility] Sep 05, 2024 10:00 AM AMBULATORY - PSYCHIATRY [facility] [place] [facility] Sep 14, 2024 09:30 AM AMBULATORY - MEDICINE [facility] [place] [facility] Sep 19, 2024 10:00 AM AMBULATORY - PS[facility]CHIATRY [facility] [place] [facility] Lab Results: +/- 30 days of the encounter This section includes the Chemistry and Hematology Lab Results on record with [place] for the patient. Radiology Reports and Pathology Reports are provided separately, in subsequent sections. Lab Results This section contains the Chemistry/Hematology Results that were resulted 30 days before or 30 daysafter the date of the Encounter. Date/Time Source Result Type Result - Unit Interpretation Reference Range Comment May 24, 2024 12:16 PM [facility] TSH Specimen Type: SERUM No comment entered. Ordering Provider: HIREN TUTTLE Report Released Date/Time: May 24, 2024 11:32 AM Reporting Lab: [address] [phone] Performing Lab: [address] [address] TSH 1.52 u[IU]/mL 0.35-5.00 May 24, 2024 12:16 PM [facility] LIVER FUNCTION Specimen Type: SERUM No comment entered. Ordering Provider: HIREN TUTTLE Report Released Date/Time: May 24, 2024 11:32 AM Reporting Lab: [address] [address] Performing Lab: [address] [phone] PROTEIN,TOTAL 6.8 g/dL 6.0-8.3 ALBUMIN 3.9 g/dL 3.5-5.0 ALKALINE PHOSPHATASE 80 U/L 40-150 AST 19 U/L 5-34 ALT 21 U/L BILIRUBIN, TOTAL 0.5 mg/dL 0.2-1.2 May 24, 2024 12:16 PM [facility] PSA Specimen Type: SERUM No comment entered. Ordering Provider: HIREN TUTTLE Report Released Date/Time: May 24, 2024 11:32 AM Reporting Lab: [address] [address] Performing Lab: [address] [place] [address] PSA 2.42 ng/mL 0.00-4.00 May 24, 2024 12:16 PM [facility] URINALYSIS CLEAN CATCH Specimen Type: URINE Comment: If Glucose = >500 and Ketones are positive, please alert the Physician. Ordering Provider: HIREN TUTTLE Report Released Date/Time: May 24, 2024 11:32 AM Reporting Lab: [address] [address] Performing Lab: [address] [address] UA COLOR Light-Yellow Yellow UA APPEARANCE Clear Clear UA GLUCOSE Normal mg/dL Negative UA KETONES NEGATIVE mg/dL Negative UA BLOOD NEGATIVE mg/dL Negative UA PROTEIN NEGATIVE mg/dL Negative UA NITRITE NEGATIVE mg/dL Negative UA BILIRUBIN NEGATIVE mg/dL Negative UA SPECIFIC GRAVITY 1.023 H 1.016-1.022 UA pH 6.5 5.0-9.0 UA UROBILINOGEN Normal mg/dL <2.0 UA LEUKOCYTE NEGATIVE Negative May 24, 2024 12:16 PM [facility] BASIC METABOLIC PANEL (non-fasting) Specimen Type: SERUM No comment entered. Ordering Provider: HIREN TUTTLE Report Released Date/Time: May 24, 2024 11:32 AM Reporting Lab: [address] [address] Performing Lab: [address] [address] UREA NITROGEN 12 mg/dL 7-25 GLUCOSE 107 mg/dL H 65-100 SODIUM 139 mmol/L 135-145 POTASSIUM 4.2 mmol/L 3.5-5.0 CHLORIDE 104 mmol/L 100-110 CO2 25 meq/L 20-30 CREATININE, Serum 0.85 mg/dL 0.50-1.40 eGFR(CKD-EPI 2020) >90 mL/min >60 May 24, 2024 12:16 PM [facility] CBC AND DIFF (AUTO) Specimen Type: BLOOD No comment entered. Ordering Provider: HIREN TUTTLE Report Released Date/Time: May 24, 2024 11:32 AM Reporting Lab: [facility] [address] [address] Performing Lab: [facility] [address] [address] WBC 5.72 10*3/uL 4.50-11.00 RBC 5.02 10*6/uL [...] and tobacco- related health factors from the [place] facility where the Encounter took place. Current Smoking Status This section includes the most current smoking, or tobacco-related health factor, from the [place] facility where the Encounter took place. Date/Time Current Smoking Status Comment Facil ity May 17, 2023 11:30 AM VA-TOBACCO NEVER USED [facility] Tobacco Use History This section includes a history of the smoking, or tobacco-related health factors, that were collected on or before the date of the Encounter. The data comes from the [place] facility where the Encounter took place. Date/Time Smoking Status/Tobacco Use Comment F acility Mar 26, 2021 11:00 AM VATOBACCO NEVER USED [facility] Apr 16, 2020 09:00 AM VA-TOBACCO NEVER USED [facility] Jan 10, 2019 11:57 AM VA-TOBACCO NEVER USED [facility] Mar 31, 2018 03:49 PM LIFETIME NON-TOBACCO USER [facility] Mar 08, 2017 02:54 PM LIFETIME NON-TOBACCO USER [facility] Pathology Reports: +/- 30 days of the [...] Encounter. The data comes from all [facility] facilities. Date/Time Pathology Report Provider Source May 24, 2024 12:16 PM LR MICROBIOLOGY RE PORT: Reporting Lab: [facility] [CLIA# [id number]] [address] [place] [id number] Accession [UID]: [id number] [[id number]] Received: May 24, 2024@12:16 Collection sample: URINE CLEAN CATCH Collection date: May 24, 2024 12:16 Site/Specimen: URINE Provider: HIREN TUTTLE Comment on specimen: cc Test(s) ordered: URINE CULTURE(MWROX).......... completed: May 30, 2024 07:58 * BACTERIOLOGY FINAL REPORT => May 30, 2024 07:58 TECH CODE: [id number] Bacteriology Remark(s): >10,000 - <25,000 CFU/ML MIXED GRAM POSITIVE MELISSA No further workup =--=--=--=--=--=--=--=-- =--=--=--=--=--=--=--=-- =--=--=--=--=--=--=--=-- =--=-- Performing Laboratory: Bacteriology Report Performed By: [facility] [CLIA# [id number]] [address] [place] [id number] [facility] Encounter Notes: All associated encounter notes This section contains the clinical notes associated to the Encounter. Date/Time Encounter Note(s) Provider Source May 23, 2024 09:50 AM CLERICAL NOTE: LOCAL TITLE: APPOINTMENT NO SHOW STANDARD TITLE: CLERICAL NOTE DATE OF NOTE: MAY 23, 2024@09:50 ENTRY DATE: MAY 23, 2024@09:51 AUTHOR: MARCELLA OSORIO EXP COSIGNER: URGENCY: STATUS: COMPLETED APPOINTMENT NO SHOW Has ADDENDA Patient Name: NAV ANDRADE Patient SSN: [id number] Date and time of Appointment No show : 04/25/24 10:00 PATIENT PHONE - PHONE NUMBER [CELLULAR] - Patient's medical record was reviewed. Follow-up actions were determined and initiated: Please check/complete as applies: [X]Telephoned Directly [ ]Re-scheduled for next available appt [ ]Sent a N0-show letter ( must call for appointment) [ ]Other (Emergent/Overbook, etc.): Additional Comments: Left VM Future Clinic Visits 05/23/2024 10:00 CWM/NO/MHC/[facility] 06/06/2024 09:30 CWM/NO/MHC/[facility] 06/20/2024 09:30 CWM/NO/MHC/[facility] 09/06/2024 10:30 CWM/NO/PACT 4 /es/ MARCELLA OSORIO, PhD Clinical Psychologist Signed: 05/23/2024 09:51 Receipt Acknowledged By: 05/23/2024 16:33 /es/ LOLA PEGUERO ADVANCED DATABASE DESIGN ANALYST 05/23/2024 ADDENDUM STATUS: COMPLETED Note entered in error, and meeting was held as scheduled. /ankit/ MARCELLA OSORIO, PhD Clinical Psychologist Signed: 05/23/2024 12:15 MARCELLA OSORIO [place] [facility] [place] [facility] Apr 25, 2024 12:27 PM PSYCHOLOGY NOTE: LOCAL TITLE: PSYCHOLOGY NOTE STANDARD TITLE: PSYCHOLOGY NOTE DATE OF NOTE: APR 25, 2024@12:27 ENTRY DATE: APR 25, 2024@12:27:59 AUTHOR: MARCELLA OSORIO EXP COSIGNER: URGENCY: STATUS: COMPLETED Date of session: Apr Duration of session: 25 Diagnosis: Depression Presenting Problem ( report): Struggling - not feeling like doing things, can't shake the chronic headache. Sleeping poorly. Hasn't been seen psychiatrically since Ms. Corley left, although he has been working with Zari Grover on Prazosin dosing. I believe he's been transferred to get med through primary care - he'd been stable for a long time. Because of the heightened symptoms, I re-referred him to psychiatry. Appologized for missing last meeting - he was helping his daughter with a car problem, and ran out of time. Course of Session: Increased depression appears related to the having unceremoniously him (his son was unable to get some kind of benefit that was associated with his status). He wants to retire, but has been offended at various treatment he's regarded as invalidating. He'd been working many more hours than he wanted to, but that's correcting on his own as the [employer] project is ending seasonally. Specific mental health/clinical interventions: He agreed to go to primary care to deal with his headaches, which have been highly problematic and unresponsive even to a fiorecet his gave him. He'd seen Dr. Lara, unclear if he needs a new referral, but primary care is likely a good starting point. Mental Status/Clinical Impression: 1. Appearance (grooming, attire, apparent age) within normal limits: Yes 2. Thought content was organized and goal directed: Yes 3. Speech was coherent and unimpaired: Yes 4. Affect was appropriate and unremarkable: down in the dumps 5. Demeanor was calm, with no signs of agitation or restlessness: Yes 6. Problems with sleep or appetite reported: Often doesn't get to sleep until 3 AM. 7. Psychosis (hallucinations or delusions): No Date of next planned contact: 2 weeks /ankit/ MARCELLA SOORIO, PhD Clinical Psychologist Signed: 04/25/2024 12:37 MARCELLA OSORIO [facility]
--- OUTSIDE RECORDS SUMMARY | 2024-08-31 19:54 | XMS_ITS ---
Author Name [facility] [place] Organization [facility] [place] Address [address] [place] [address] Care Team Providers Care Casing Sewer Name Role Phone HIREN TUTTLE Primary Care [...] STAND JORGITO Jul 19, 2019 MEDICAI D [id number] ANDRADEBraxton CHEN PATIENT MEDICAID MEDICAID MEDIC AID Jul 19, 2015 DO NOT BILL [id number] RAYMONDBraxton BURDENJonh PATIENT Selected Encounter This section includes the information on record at [place] for the Encounter. Date/Time Encounter Type Encounter Description Reason Provider Source Mar 30, 2024 04:00 PM PSYTX W PT 45 MINUTES [facility] - IND ICD-10-CM F43.12 Post-traumatic stress disorder, chronic MARCELLA OSORIO Encounter Template Text not used by [facility] Assessments - Encounter Diagnoses This section includes the primary and secondary diagnoses documented for the Encounter. Date/Time Primary/Secondary Diagnosis Diagnosis Name Provider Source Mar 30, 2024 04:47 PM PRIMARY Post-traumatic stress disorder, chronic MARCELLA OSORIO [facility] [place] [facility] Mar 30, 2024 04:47 PM SECONDARY Major depressive disorder, recurrent, moderate MARCELLA OSORIO [facility] [place] [facility] Mar 30, 2024 04:47 PM SECONDARY activity MARCELLA OSORIO [place] [facility] [place] [facility] Plan of Treatment: Future Appointments (+ 6 months) and Future Tests (+/- 45 days) The Plan of Treatment section includes future care activities for the [facility] [place] [facility] This section includes future appointments and future orders which are active, pending or scheduled. Future Appointments This section includes appointments that were scheduled to occur 6 months from the date of the Encounter, up to a maximum of 20 appointments. The data comes from all [place] treatment facilities. Appointment Date/Time Appointment Type Appointme nt Facility Name Apr 13, 2024 04:00 PM AMBULATORY - PSYCHIATRY [facility] [place] [facility] Apr 25, 2024 10:00 AM AMBULATORY - PSYCHIATRY [facility] [place] [facility] May 03, 2024 10:00 AM AMBULATORY - PSYCHIATRY [facility] [place] [facility] May 09, 2024 10:00 AM AMBULATORY - PSYCHIATRY [facility] [place] [facility] May 23, 2024 10:00 AM AMBULATORY - PSYCHIATRY [facility] [place] [facility] May 24, 2024 11:00 AM AMBULATORY - MEDICINE [facility] [place] [facility] May 26, 2024 01:00 PM AMBULATORY - PSYCHIATRY [facility] [place] [facility] Jun 20, 2024 09:30 AM AMBULATORY - PSYCHIATRY [facility] [place] [facility] Jun 23, 2024 02:00 PM AMBULATORY - PSYCHIATRY [facility] [place] [facility] Jul 05, 2024 08:30 AM AMBULATORY - PSYCHIATRY [facility] [place] [facility] Jul 06, 2024 11:00 AM AMBULATORY - PSYCHIATRY [facility] [place] [facility] Jul 25, 2024 11:30 AM AMBULATORY - PSYCHIATRY [facility] [place] [facility] Aug 08, 2024 10:00 AM AMBULATORY - PSYCHIATRY [facility] [place] [facility] Aug 15, 2024 01:00 PM AMBULATORY - NEUROLOGY [facility] [place] [facility] Aug 15, 2024 01:00 PM AMBULATORY - [facility]Y [facility] Sep 05, 2024 10:00 AM AMBULATORY - PSYCHIATRY [facility] [place] [facility] Sep 14, 2024 09:30 AM AMBULATORY - MEDICINE [facility] [place] [facility] Sep 19, 2024 10:00 AM AMBULATORY - PSYCHIATRY [place] [facility] [place] [facility] Social History: Smoking Status (Most current) and Tobacco Use (All prior to encounter date) This section includes the most current, and the historical, smoking and tobacco- related health factors from the [place] facility where the Encounter took place. Current Smoking Status This section includes the most current smoking, or tobacco-related health factor, from the [place] facility where the Encounter took place. Date/Time Current Smoking Status Comment Facil ity May 17, 2023 11:30 AM [facility]TO[facility]ACCO NEVER US[facility] Tobacco Use History This section includes a history of the smoking, or tobacco-related health factors, that were collected on or before the date of the Encounter. The data comes from the [place] facility where the Encounter took place. Date/Time Smoking Status/Tobacco Use Comment F acility Mar 26, 2021 11:00 AM VA-TOBACCO NEVER USED [facility] [place] [facility] Apr 16, 2020 09:00 AM VA-TOBACCO NEVER USED [facility] [place] [facility] Jan 10, 2019 11:57 AM VA-TOBACCO NEVER USED [facility] [place] [facility] Mar 31, 2018 03:49 PM LIFETIME NON-TOBACCO USER [facility] [place] [facility] Mar 08, 2017 02:54 PM LIFETIME NON-TOBACCO USER [facility] [place] [facility] Encounter Notes: All associated encounter notes This section contains the clinical notes associated to the Encounter. Date/Time Encounter Note(s) Provider Source Mar 30, 2024 04:39 PM PSYCHOLOGY CONSULT : LOCAL TITLE: CONSULT REPORT/MENTAL HEALTH/PSYCHOLOGY STANDARD TITLE: PSYCHOLOGY CONSULT DATE OF NOTE: MAR 30, 2024@16:39 ENTRY DATE: MAR 30, 2024@16:39:36 AUTHOR: MARCELLA OSORIO EXP COSIGNER: URGENCY: STATUS: COMPLETED Date of session: Mar Duration of session: 40 Diagnosis: Depression, PTSD Presenting Problem ( report): First visit since my return. 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 There's variety to the work and he likes it. Course of Session: Still not fully from the . Angry and discouraged, but not letting it get him down the way it used to. He was shaken when his son told him he couldn't get a discount because he was inactive. Specific mental health/clinical interventions: Debates asking for an investigation as to why he's been ignored in this way, not sure it's worth it. Mental Status/Clinical Impression: 1. Appearance (grooming, attire, apparent age) within normal limits: Yes 2. Thought content was organized and goal directed: Yes 3. Speech was coherent and unimpaired: Yes 4. Affect was appropriate and unremarkable: Yes - full range 5. Demeanor was calm, with no signs of agitation or restlessness: Yes 6. Problems with sleep or appetite reported: Sleep is poor; trying reading at bedtime to see if that helps. 7. Psychosis (hallucinations or delusions): No Date of next planned contact: 2 weeks /ankit/ MARCELLA OSORIO, PhD Clinical Psychologist Signed: 03/30/2024 16:47 MARCELLA OSORIO [facility]
--- OUTSIDE RECORDS SUMMARY | 2024-08-31 19:54 | XMS_ITS | Encounter Summary ---
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 Date/Time Encounter Type Encounter Description Reason Provider Source May 23, 2024 10:00 AM PSYTX W PT 45 MINUTES [facility] - IND ICD-10-CM F33.1 Major depressive disorder, recurrent, moderate MARCELLA OSORIO Encounter Template Text not used by [facility] Assessments - Encounter Diagnoses This section includes the primary and secondary diagnoses documented for the Encounter. Date/Time Primary/Secondary Diagnosis Diagnosis Name Provider Source May 23, 2024 03:02 PM PRIMARY Major depressive disorder, recurrent, moderate COOK,MARCELLA A [place] [facility] [facility] Plan of Treatment: Future Appointments (+ 6 months) and Future Tests (+/- 45 days) The Plan of Treatment section includes future care activities for the patient from all [place] treatmentfacilities. This section includes future appointments and future orders which are active, pending or scheduled. Future Appointments This section includes appointments that were scheduled to occur 6 months from the date of the Encounter, up to a maximum of 20 appointments. The data comes from all [place] treatment facilities. Appointment Date/Time Appointment Type Appointme nt Facility Name May 24, 2024 11:00 AM AM[place]ULATORY - [place]ICINE [place] [facility] [facility] May 26, 2024 01:00 PM AMBULATORY - [place]ATRY [place] [facility] [facility] Jun 20, 2024 09:30 AM AMBULATORY - [facility]IATRY [place] [facility] [place] [facility] Jun 23, 2024 02:00 PM AMBULATORY - PS[facility]IATRY [facility] [facility] Jul 05, 2024 08:30 AM AMBULATORY - PS[facility]IATRY [place] [facility] [place] [facility] Jul 06, 2024 11:00 AM AMBULATORY - PS[place]IATRY [place] [facility] [place] [facility] Jul 25, 2024 11:30 AM AMBULATORY - PS[facility]CHIATRY [facility] [place] [facility] Aug 08, 2024 10:00 AM AMBULATORY - PS[facility]CHIATRY [facility] [facility] Aug 15, 2024 01:00 PM AMBULATORY - NEUROLOGY [facility] [place] [facility] Aug 15, 2024 01:00 PM AMBULATORY - NEUROLOGY [facility] Sep 05, 2024 10:00 AM AMBULATORY - [place]CHIATRY [place] [facility] [place] [facility] Sep 14, 2024 09:30 AM AM[place]ORY [place]ICINE [place] [facility] [place] [facility] Sep 19, 2024 10:00 AM AM[place]UL[place]ORY [place] [facility] [place] [facility] Lab Results: +/- 30 days of the encounter This section includes the Chemistry and Hematology Lab Results on record with [place] for the patient. Radiology Reports and Pathology Reports are provided separately, in subsequent sections. Lab Results This section contains the Chemistry/Hematology Results that were resulted 30 days before or 30 daysafter the date of the Encounter. Date/Time Source Result Type Result - Unit Interpretation Reference Range Comment May 24, 2024 12:16 PM [facility] TSH Specimen Type: SERUM No comment entered. Ordering Provider: HIREN TUTTLE Report Released Date/Time: May 24, 2024 11:32 AM Reporting Lab: [address] [address] Performing [facility]: [facility] [address] TSH 1.52 u[IU]/mL 0.35-5.00 May 24, 2024 12:16 PM [facility] LIVER FUNCTION Specimen Type: SERUM No comment entered. Ordering Provider: HIREN TUTTLE Report Released Date/Time: May 24, 2024 11:32 AM Reporting Lab: [address] [address] Performing Lab: [address] [address] PROTEIN,TOTAL 6.8 g/dL 6.0-8.3 ALBUMIN 3.9 g/dL 3.5-5.0 ALKALINE PHOSPHATASE 80 U/L 40-150 AST 19 U/L 5-34 ALT 21 U/L BILIRUBIN, TOTAL 0.5 mg/dL 0.2-1.2 May 24, 2024 12:16 PM [facility] PSA Specimen Type: SERUM No comment entered. Ordering Provider: HIREN TUTTLE Report Released Date/Time: May 24, 2024 11:32 AM Reporting Lab: [address] [address] Performing Lab: [address] [address] PSA 2.42 ng/mL 0.00-4.00 May 24, 2024 12:16 PM [facility] URINALYSIS CLEAN CATCH Specimen Type: URINE Comment: If Glucose = >500 and Ketones are positive, please alert the Physician. Ordering Provider: HIREN TUTTLE Report Released Date/Time: May 24, 2024 11:32 AM Reporting Lab: [address] [address] Performing Lab: [facility] [address] [facility] [address] UA COLOR Light-Yellow Yellow UA APPEARANCE Clear Clear UA GLUCOSE Normal mg/dL Negative UA KETONES NEGATIVE mg/dL Negative UA BLOOD NEGATIVE mg/dL Negative UA PROTEIN NEGATIVE mg/dL Negative UA NITRITE NEGATIVE mg/dL Negative UA BILIRUBIN NEGATIVE mg/dL Negative UA SPECIFIC GRAVITY 1.023 H 1.016-1.022 UA pH 6.5 5.0-9.0 UA UROBILINOGEN Normal mg/dL <2.0 UA LEUKOCYTE NEGATIVE Negative May 24, 2024 12:16 PM [facility] BASIC METABOLIC PANEL (non-fasting) Specimen Type: SERUM No comment entered. Ordering Provider: HIREN TUTTLE Report Released Date/Time: May 24, 2024 11:32 AM Reporting Lab: [address] [address] Performing Lab: [address] [address] UREA NITROGEN 12 mg/dL 7-25 GLUCOSE 107 mg/dL H 65-100 SODIUM 139 mmol/L 135-145 POTASSIUM 4.2 mmol/L 3.5-5.0 CHLORIDE 104 mmol/L 100-110 CO2 25 meq/L 20-30 CREATININE, Serum 0.85 mg/dL 0.50-1.40 eGFR(CKD-EPI 2020) >90 mL/min >60 May 24, 2024 12:16 PM [facility] CBC AND DIFF (AUTO) Specimen Type: BLOOD No comment entered. Ordering Provider: HIREN TUTTLE Report Released Date/Time: May 24, 2024 11:32 AM Reporting Lab: [address] [address] Performing Lab: [address] [address] WBC 5.72 10*3/uL 4.50-11.00 RBC 5.02 10*6/uL [...] and tobacco- related health factors from the [place] facility where the Encounter took place. Current Smoking Status This section includes the most current smoking, or tobacco-related health factor, from the [place] facility where the Encounter took place. Date/Time Current Smoking Status Comment Facil ity May 17, 2023 11:30 AM [place] USED [place] [facility] [place] [facility] Tobacco Use History This section includes a history of the smoking, or tobacco-related health factors, that were collected on or before the date of the Encounter. The data comes from the [place] facility where the Encounter took place. Date/Time Smoking Status/Tobacco Use Comment F acility Mar 26, 2021 11:00 AM [facility] [place] [facility] Apr 16, 2020 09:00 AM [place]-TOBACCO NEVER USED [place] [facility] [place] [facility] Jan 10, 2019 11:57 AM [place]-TOBACCO NEVER USED [place] [facility] [place] [facility] Mar 31, 2018 03:49 PM LIFETIME NON-TOBACCO USER [place] [facility] [place] [facility] Mar 08, 2017 02:54 PM LIFETIME NON-TOBACCO [facility]ER [facility] Pathology Reports: +/- 30 days of the [...] the Encounter. The data comes from all [facility] facilities. Date/Time Pathology Report Provider Source May 24, 2024 12:16 PM LR MICROBIOLOGY RE PORT: Reporting Lab: [facility] [CLIA# [id number]] [address] [place] [id number] Accession [UID]: [id number] [[id number]] Received: May 24, 2024@12:16 Collection sample: URINE CLEAN CATCH Collection date: May 24, 2024 12:16 Site/Specimen: URINE Provider: HIREN TUTTLE Comment on specimen: cc Test(s) ordered: URINE CULTURE(MWROX).......... completed: May 30, 2024 07:58 * BACTERIOLOGY FINAL REPORT => May 30, 2024 07:58 TECH CODE: [id number] Bacteriology Remark(s): >10,000 - <25,000 CFU/ML MIXED GRAM POSITIVE MEILSSA No further workup =--=--=--=--=--=--=--=-- =--=--=--=--=--=--=--=-- =--=--=--=--=--=--=--=-- =--=-- Performing Laboratory: Bacteriology Report Performed By: [facility] [CLIA# [id number]] [address] [place] [address] [facility] Encounter Notes: All associated encounter notes This section contains the clinical notes associated to the Encounter. Date/Time Encounter Note(s) Provider Source Jun 20, 2024 09:46 AM CLERICAL NOTE: LOCAL TITLE: APPOINTMENT NO SHOW STANDARD TITLE: CLERICAL NOTE DATE OF NOTE: JUN 20, 2024@09:46 ENTRY DATE: JUN 20, 2024@09:47:04 AUTHOR: MARCELLA OSORIO EXP COSIGNER: URGENCY: STATUS: COMPLETED APPOINTMENT NO SHOW Has ADDENDA Patient Name: RAMOS ANDRADE Patient SSN: [id number] Date and time of Appointment No show : 05/23/24 10:00 PATIENT PHONE - PHONE NUMBER [CELLULAR] - Patient's medical record was reviewed. Follow-up actions were determined and initiated: Please check/complete as applies: [X]Telephoned Directly [ ]Re-scheduled for next available appt [ ]Sent a N0-show letter ( must call for appointment) [ ]Other (Emergent/Overbook, etc.): Additional Comments: VMB not set up yet. Future Clinic Visits 06/23/2024 14:00 CWM/NO/MHC/CLP2 07/11/2024 14:00 CWM V01 HCTRAVIS KNIGHT 02 ADMIN 11/29/2024 10:00 CWM/NO/PACT 4 01/03/2025 13:00 NHM/OPTOMETRY/RIOS/ /ankit/ MARCELLA OSORIO, PhD Clinical Psychologist Signed: 06/20/2024 09:47 Receipt Acknowledged By: 06/22/2024 18:07 /ankit/ LOLA PEGUERO [facility] [employer] [employer] 06/20/2024 ADDENDUM STATUS: COMPLETED Ramos arrived a bit late for the elena't. /ankit/ MARCELLA OSORIO, PhD Clinical Psychologist Signed: 06/20/2024 11:03 MARCELLA OSORIO [facility] May 23, 2024 12:15 PM PSYCHOLOGY NOTE: LOCAL TITLE: PSYCHOLOGY NOTE STANDARD TITLE: PSYCHOLOGY NOTE DATE OF NOTE: MAY 23, 2024@12:15 ENTRY DATE: MAY 23, 2024@12:15:20 AUTHOR: MARCELLA OSORIO COSIGNER: URGENCY: STATUS: COMPLETED Date of session: May Duration of session: 25 Diagnosis: Major Depression Presenting Problem ([place] report): It's happened again - I didn't go to work for the past two weeks. Also didn't respond to consult outreach, although he thinks he could now. What happened is that he got a letter about not reporting for drill; he'd thought he was already . Turns out he needs to submit paperwork on his health that should resolve this, but in the meantime got back to obsessively recall of various distressing events in the . Course of Session: asked him to mention that he'd eaten two bags of Halloween candy singlehandedly, and that he'd been sleeping on the couch (he was staying up to watch TV in an effort to interrupt all the memories). His workplace is worried, but he's not in disciplinaray trouble - he's been there for two years, and they love his work. His headache, which had been helped by medical care, has been back to being much more painful as well as highly longstanding. He agrees to go to sick trumbull - he'd not wanted to last time, but it's vital that he get things moving on a neurology referral or whatever is indicated. Reports he's taking meds regularly: my makes sure of that. Specific mental health/clinical interventions: Re-submitted psych consult, and urged him to go to PCP for attention to the long-lasting headache. Mental Status/Clinical Impression: 1. Appearance (grooming, attire, apparent age) within normal limits: Yes 2. Thought content was organized and goal directed: Yes 3. Speech was coherent and unimpaired: Speech is soft, as usual, sometimes haard to udnerstand. 4. Affect was appropriate and unremarkable: Appear to be feeling better - grinned as a helped re-set office clock, feels confident he'll respond to phone messages about a psychiatric elena't. 5. Demeanor was calm, with no signs of agitation or restlessness: Yes 6. Problems with sleep or appetite reported: Sleep has been poor 7. Psychosis (hallucinations or delusions): No Date of next planned contact: 2 weeks /ankit/ MARCELLA OSORIO, PhD Clinical Psychologist Signed: 05/23/2024 15:02 MARCELLA OSORIO [place] [facility]
--- OUTSIDE RECORDS SUMMARY | 2024-08-31 19:54 | XMS_ITS ---
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 Date/Time Encounter Type Encounter Description Reason Provider Source Jul 06, 2024 11:00 AM PSYTX W PT 30 MINUTES [facility] - IND ICD-10-CM F33.1 Major depressive disorder, recurrent, moderate MARCELLA OSORIO Encounter Template Text not used by [facility] Assessments - Encounter Diagnoses This section includes the primary and secondary diagnoses documented for the Encounter. Date/Time Primary/Secondary Diagnosis Diagnosis Name Provider Source Jul 10, 2024 08:39 AM PRIMARY Major depressive disorder, recurrent, moderate DEVONMARCELLA A [facility] Plan of Treatment: Future Appointments (+ 6 months) and Future Tests (+/- 45 days) The Plan of Treatment section includes future care activities for the patient from all [place] [facility]. This section includes future appointments and future orders which are active, pending or scheduled. Future Appointments This section includes appointments that were scheduled to occur 6 months from the date of the Encounter, up to a maximum of 20 appointments. The data comes from all [place] treatment facilities. Appointment Date/Time Appointment Type Appointme nt Facility Name Jul 25, 2024 11:30 AM [facility] [place] [facility] [place] [facility] Aug 08, 2024 10:00 AM [facility] [place] [facility] [place] [facility] Aug 15, 2024 01:00 PM [place] [facility] [place] [facility] Aug 15, 2024 01:00 PM [facility] Sep 05, 2024 10:00 AM [facility] [place] [facility] [place] [facility] Sep 14, 2024 09:30 AM AMBULATORY - MEDICINE [facility] [place] [facility] Sep 19, 2024 10:00 AM AM[place]RY [place] [facility] [place] [facility] November 29, 2024 10:00 AM AMBULATORY - MEDICINE [facility] [place] [facility] Jan 03, 2025 01:00 PM [facility] Social History: Smoking Status (Most current) and Tobacco Use (All prior to encounter date) This section includes the most current, and the historical, smoking and tobacco- related health factors from the [place] facility where the Encounter took place. Current Smoking Status This section includes the most current smoking, or tobacco-related health factor, from the [place] facility where the Encounter took place. Date/Time Current Smoking Status Comment Krishan ity May 24, 2024 11:00 AM [place]-TO[place] NEVER US[place] [facility] Tobacco Use History This section includes a history of the smoking, or tobacco-related health factors, that were collected on or before the date of the Encounter. The data comes from the [place] facility where the Encounter took place. Date/Time Smoking Status/Tobacco Use Comment F acility May 17, 2023 11:30 AM [place]-TOBACCO NEVER USED [place] [facility] [place] [facility] Mar 26, 2021 11:00 AM [place]-TOBACCO NEVER USED [place] [facility] [place] [facility] Apr 16, 2020 09:00 AM [place]-TOBACCO NEVER USED [place] [facility] [place] [facility] Jan 10, 2019 11:57 AM [place]-TOBACCO NEVER USED [facility] [place] [facility] Mar 31, 2018 03:49 PM LIFETIME NON-TOBACCO USER [place] [facility] [place] [facility] Mar 08, 2017 02:54 PM LIFETIME NON-TOBACCO USER [place] [facility] [place] [facility] Encounter Notes: All associated encounter notes This section contains the clinical notes associated to the Encounter. Date/Time Encounter Note(s) Provider Source Jul 06, 2024 11:33 AM PSYCHOLOGY NOTE: LOCAL TITLE: PSYCHOLOGY NOTE STANDARD TITLE: PSYCHOLOGY NOTE DATE OF NOTE: JUL 06, 2024@11:33 ENTRY DATE: JUL 06, 2024@11:33:58 AUTHOR: MARCELLA OSORIO COSIGNER: URGENCY: STATUS: COMPLETED Date of session: Jun Duration of session: 30 Diagnosis: Depression Presenting Problem ([place] report): Was in bed with the ongoing headache all day yesterday - better today, but relieved that he has a neurology visit coming up. His brother has had an excellent response to Botox, and he's hoping a trial will be recommended for him. Course of Session: Hasn't been in to work, but hopes to return after the [place] break. Jokes freely about his 's habit of moving paperwork around - he's got one more round of paperwork to do to complete residential. Specific mental health/clinical interventions: Validation and support. Mental Status/Clinical Impression: 1. Appearance (grooming, attire, apparent age) within normal limits: delusions): Yes 2. Thought content was organized and goal directed: Yes 3. Speech was coherent and unimpaired: Yes 4. Affect was appropriate and unremarkable: Yes - in good humor despite the chronic headache. 5. Demeanor was calm, with no signs of agitation or restlessness: Yes 6. Problems with sleep or appetite reported: No 7. Psychosis (hallucinations or Delusions: No Date of next planned contact: 2 weeks /ankit/ MARCELLA OSORIO, PhD Clinical Psychologist Signed: 07/10/2024 08:39 [facility]ORIO [facility]
--- OUTSIDE RECORDS SUMMARY | 2024-08-31 19:54 | XMS_ITS ---
Author Name [facility] [place] [facility] [place] Address [address] [place] [address] Care Team Providers Care Housekeeping Lead Name Role Phone HIREN TUTTLE Primary Care [...] STAND JORGITO Jul 19, 2019 MEDICAI D [id number] Braxton ANDRADE PATIENT MEDICAID MEDICAID MEDIC AID Jul 19, 2015 DO NOT BILL [id number] Braxton ANDRADE PATIENT Selected Encounter This section includes the information on record at [place] for the Encounter. Date/Time Encounter Type Encounter Description Reason Pro vider Source Aug 25, 2024 09:55 AM Outpatient Encounter TELEPHONE TRIAGE IHE Encounter Template Text not used by [facility] Plan of Treatment: Future Appointments (+ 6 [...] 20 appointments. The data comes from all [facility]. Appointment Date/Time Appointment Type Appointme nt Facility Name Sep 05, 2024 10:00 AM AMBULATORY - PSYCHIATRY [facility] Sep 14, 2024 09:30 AM [facility] Sep 19, 2024 10:00 AM [facility] November 29, 2024 10:00 AM [facility] Jan 03, 2025 01:00 PM AMBULATORY - MEDICINE [facility] Active, Pending, and Scheduled Orders This section includes a listing of several types of active, pending, and scheduled orders, including clinic medications orders, diagnostic test orders, procedure orders and consult orders; where the start date of the order is 45 days before the date of the Encounter or 45 days after the date of theEncounter. The data comes from all [facility]. Test Date/Time Test Type Test Details Facility Name Aug 26, 2024 09:41 AM Consult Order COMMUNITY CARE-MRI Cons Neurosurgical Nurse Practitioner's Choice [facility] Lab Results: +/- 30 days of the encounter This section includes the Chemistry and Hematology Lab Results on record with [place] for the patient. Radiology Reports and Pathology Reports are provided separately, in subsequent sections. Lab Results This section contains the Chemistry/Hematology Results that were resulted 30 days before or 30 daysafter the date of the Encounter. Date/Time Source Result Type Result - Unit Interpretation Reference Range Comment Aug 28, 2024 12:42 PM [facility] C REACTIVE PROTEIN HS (WROX) Specimen Type: SERUM Comment: Reference range changed on 01/06/11 [facility] reference ranges for ages >17 years: hsCRP in mg/L Risk According to AHA/CDC Guidelines <1.0 Lower relative cardiovascular risk. 1.0-3.0 Average cardiovascular risk. 3.1-10.0 Higher cardiovascular risk. Consider retesting in two weeks to exclude a benign transient elevation in the baseline CRP value secondary to infection or inflammation. >10.0 Persistent elevation, upon retesting, may be associated with infection and inflammation. Ordering Provider: MATTHEW TUTTLE Report Released Date/Time: Aug 26, 2024 09:41 AM Reporting Lab: [facility] [address] [address] Performing Lab: [facility] [address] [address] C REACTIVE PROTEIN HS (WROX) 3.39 mg/L See eval. Aug 28, 2024 12:42 PM [facility] SED RATE, AUTOMATED Specimen Type: BLOOD No comment entered. Ordering Provider: MATTHEW TUTTLE Report Released Date/Time: Aug 26, 2024 09:41 AM Reporting Lab: [facility] [address] [address] Performing Lab: [facility] [address] [address] SED RATE, AUTOMATED 7 mm/h 0-20 Aug 28, 2024 12:42 PM [facility] CBC AND DIFF (AUTO) Specimen Type: BLOOD No comment entered. Ordering Provider: MATTHEW TUTTLE Report Released Date/Time: Aug 26, 2024 09:41 AM Reporting Lab: [facility] [address] Performing Lab: [facility] [address] WBC 7.03 10*3/uL 4.50-11.00 RBC 5.07 10*6/uL 4.23-5.66 HGB 15.1 g/dL 12.8-17 HCT 45.2 39.2-50.4 MCV 89.2 fL 82-99 MCHC 33.4 g/dL 30.8-35.1 PLT 138 10*3/uL L 140-360 RDW-CV 12.3 12.0-16.0 MONO, ABS 0.56 10*3/uL 0.30-1.10 MCH 29.8 pg 26.2-32.6 NEUT % 55.1 43.7-75.8 LYMPH % 33.0 14.0-42.3 MONO % 8.0 5.1-13.7 EOS % 2.7 0.4-6.8 BASO % 0.9 0.1-2.0 NEUT, ABS 3.88 10*3/uL 2.20-7.60 LYMPH, ABS 2.32 10*3/uL 1.00-3.20 EOS, ABS 0.19 10*3/uL 0.03-0.44 BASO, ABS 0.06 10*3/uL 0.01-0.13 IMMATURE GRAN % 0.3 0.0-0.7 IMMATURE GRAN, ABS 0.02 10*3/uL 0.00-0.06 NRBC % 0.0 0.0-0.0 NRBC, ABS 0.00 10*3/uL 0.00-0.00 Social History: Smoking Status (Most current) and Tobacco Use (All prior to encounter date) This section includes the most current, and the historical, smoking and tobacco- related health factors from the [place] facility where the Encounter took place. Current Smoking Status This section includes the most current smoking, or tobacco-related health factor, from the [place] facility where the Encounter took place. Date/Time Current Smoking Status Comment Facil ity May 24, 2024 11:00 AM VA-TOBACCO NEVER USED [facility] [place] [facility] Tobacco Use History This section includes a history of the smoking, or tobacco-related health factors, that were collected on or before the date of the Encounter. The data comes from the [place] facility where the Encounter took place. Date/Time Smoking Status/Tobacco Use Comment F acility May 17, 2023 11:30 AM VA-TOBACCO NEVER USED [facility] [place] [facility] Mar 26, 2021 11:00 AM VA-TOBACCO NEVER USED [facility] [place] [facility] Apr 16, 2020 09:00 AM VA-TOBACCO NEVER USED [facility] [place] [facility] Jan 10, 2019 11:57 AM VA-TOBACCO NEVER USED [facility] [place] [facility] Mar 31, 2018 03:49 PM LIFETIME NON-TOBACCO USER [facility] [place] [facility] Mar 08, 2017 02:54 PM LIFETIME NON-TOBACCO USER [facility] [place] [facility] Encounter Notes: All associated encounter notes This section contains the clinical notes associated to the Encounter. Date/Time Encounter Note(s) Provider Source Aug 28, 2024 12:28 PM ADDENDUM: LOCAL TITLE: Addendum STANDARD TITLE: ADDENDUM DATE OF NOTE: AUG 28, 2024@12:28:33 ENTRY DATE: AUG 28, 2024@12:28:35 AUTHOR: JOSEF TUTTLE EXP COSIGNER: URGENCY: STATUS: COMPLETED VET NEEDS APPT W/ PCP TO REVIEW RECOMMENDATIONS FOR HEADACHE CENTER/ SEE COMMENTS FROM [facility] NEURO PROVIDER. HE CAN STILL DO LABS AND WE WILL GO AHEAD WITH PLAN FOR MRI OF BRAIN, PCP F/U APPT IN NEXT FEW WEEKS, THANKS JV First step: Please let me know if we need to discuss the [facility] recommendations via peer to peer or DM. My understanding is that you will document the progress of 1-3 and then reconsult or DM us if the is no better off analgesics. 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 PCP can do an interdisciplinary call with [facility] staff, physician primary care sports medicine and myself to identify options, however Neurology may not have much to offer. /ankit/ IHREN TUTTLE MD PHYSICIAN Signed: 08/28/2024 12:29 Receipt Acknowledged By: 08/28/2024 13:30 /ankit/ JV QUEZADA Advanced Permastone Mechanic 08/28/2024 15:07 /ankit/ Glory Saldana RN Primary Care Staff Nurse --- Original Document --- 08/25/24 CCC: CLINICAL TRIAGE: Patient Demographics Patient Name: NAV ANDRADE Patient Primary Address: [address] [place] [id number] Patient Primary Phone: [phone] Patient : 1965 Patient Age: 58 Call Back Number: [phone] Caller/Recipient Relation to Patient: Self Caller Name: NAV ANDRADE Emergency Contact: TIANA PINEDA Triage Summary Conducted triage/discussed symptoms Nursing Plan and Disposition Other course(s) of action Generated msg to PACT/Provider Nurse Summary Nurse Summary: Patient calls seeking pcp follow up appt following neuro eval 08/15. He states he stopped taking pain relievers as advised but not finding this helpful yet. Patient can be reached at # on file. _ Clinical Contact Center Codes Clinic/Location: V1 CWM PHONE CCC RN IMPORTANT: This note was created by [facility] Clinical Contact Center staff. Please do not alert the staff member by adding them as a signer for future communications. Alerts are not monitored by this user. /ankit/ ANA PANTOJA RN CLINICAL CONTACT CENTER RN Signed: 08/25/2024 09:55 Receipt Acknowledged By: 08/25/2024 10:26 /es/ SURESH LAZO REGISTERED NURSE 08/25/2024 10:04 /ankit/ Glory Saldana RN Primary Care Staff Nurse 08/25/2024 ADDENDUM STATUS: COMPLETED Adding PCP for direction. Vet had telehealth Neuro appt on 08/25/24 and is following the plan for care given at this visit: >Recommendations: 1-patient to stop all short acting analgesics per above. 2-IF no improvement despite 1) for at least 3 weeks, then patient to contact PCP 3-Would recommend at that point that PCP order an ESR/CRP, an MRI Brain, and a [id number] neurology consult (not a teleheadache appointment with [facility]) or follow up with [facility]. Please advise- do you want a f2f visit? /ankit/ Glory Saldana RN Primary Care Staff Nurse Signed: 08/25/2024 10:03 Receipt Acknowledged By: 08/26/2024 09:38 /es/ HIREN TUTTLE MD PHYSICIAN 08/26/2024 ADDENDUM STATUS: COMPLETED plz inform vet he needs to do nonfasting labs anytime in next week or so at [facility], also CC team will arrange MRI for him AND [facility] neuro will offer him F2F appt after labs and MRI are done to discuss his headaches. if vet prefers to have F2F w/ PCP sooner than May, Jv can book. arleen TUTTLE MD PHYSICIAN Signed: 08/26/2024 09:40 Receipt Acknowledged By: 08/28/2024 08:44 /chris QUEZADA Advanced Permastone Mechanic 08/28/2024 11:21 /chris Saldana newspaper illustrator Staff Nurse 08/28/2024 ADDENDUM STATUS: COMPLETED MSA called and spoke with giving this msg. /chris QUEZADA Advanced Permastone Mechanic Signed: 08/28/2024 08:43 08/28/2024 ADDENDUM STATUS: COMPLETED Appt scheduled for 09/14. /chris QUEZADA Advanced Permastone Mechanic Signed: 08/28/2024 13:29 LENKA TUTTLE [place] [facility] [place] [facility] Aug 26, 2024 09:38 AM ADDENDUM: LOCAL TITLE: Addendum STANDARD TITLE: ADDENDUM DATE OF NOTE: AUG 26, 2024@09:38:54 ENTRY DATE: AUG 26, 2024@09:38:55 AUTHOR: JOSEF TUTTLE EXP COSIGNER: URGENCY: STATUS: COMPLETED plz inform vet he needs to do nonfasting labs anytime in next week or so at [place], also [facility] team will arrange MRI for him AND [facility] neuro will offer him F2F appt after labs and MRI are done to discuss his headaches. if vet prefers to have F2F w/ PCP sooner than May, Jv can book. arleen TUTTLE MD PHYSICIAN Signed: 08/26/2024 09:40 Receipt Acknowledged By: 08/28/2024 08:44 /chris QUEZADA Advanced Permastone Mechanic 08/28/2024 11:21 /chris Saldana RN Primary Care Staff Nurse --- Original Document --- 08/25/24 CCC: CLINICAL TRIAGE: Patient Demographics Patient Name: NAV ANDRADE Patient Primary Address: [address] [place] [id number] Patient Primary Phone: [phone] Patient : 1965 Patient Age: 58 Call Back Number: [phone] Caller/Recipient Relation to Patient: Self Caller Name: NAV ANDRADE Emergency Contact: TIANA PINEDA Triage Summary Conducted triage/discussed symptoms Nursing Plan and Disposition Other course(s) of action Generated msg to PACT/Provider Nurse Summary Nurse Summary: Patient calls seeking pcp follow up appt following neuro eval 08/15. He states he stopped taking pain relievers as advised but not finding this helpful yet. Patient can be reached at # on file. _ Clinical Contact Center Codes Clinic/Location: V1 CWM PHONE CCC RN IMPORTANT: This note was created by [facility] Clinical Contact Center staff. Please do not alert the staff member by adding them as a signer for future communications. Alerts are not monitored by this user. /ankit/ ANA PANTOJA RN CLINICAL CONTACT CENTER RN Signed: 08/25/2024 09:55 Receipt Acknowledged By: 08/25/2024 10:26 /es/ SURESH LAZO REGISTERED NURSE 08/25/2024 10:04 /ankit/ Glory Saldana RN Primary Care Staff Nurse 08/25/2024 ADDENDUM STATUS: COMPLETED Adding PCP for direction. Giancarlo had telehealth Neuro appt on 08/25/24 and is following the plan for care given at this visit: >Recommendations: 1-patient to stop all short acting analgesics per above. 2-IF no improvement despite 1) for at least 3 weeks, then patient to contact PCP 3-Would recommend at that point that PCP order an ESR/CRP, an MRI Brain, and a [id number] neurology consult (not a teleheadache appointment with [facility]) or follow up with [facility]. Please advise- do you want a f2f visit? /chris Saldana RN Primary Care Staff Nurse Signed: 08/25/2024 10:03 Receipt Acknowledged By: 08/26/2024 09:38 /es/ HIREN TUTTLE MD PHYSICIAN 08/28/2024 ADDENDUM STATUS: COMPLETED MSA called and spoke with giving this msg. /ankit/ JV QUEZADA Advanced Permastone Mechanic Signed: 08/28/2024 08:43 LENKA TUTTLE [place] [facility] [place] [facility] Aug 25, 2024 09:55 AM RN PROGRESS NOTE: LOCAL TITLE: CCC: CLINICAL TRIAGE STANDARD TITLE: RN PROGRESS NOTE DATE OF NOTE: AUG 25, 2024@09:55:38 ENTRY DATE: AUG 25, 2024@09:55:38 AUTHOR: ANA MEJIA COSIGNER: URGENCY: STATUS: COMPLETED CCC: CLINICAL TRIAGE Has ADDENDA Patient Demographics Patient Name: NAV ANDRADE Patient Primary Address: [address] [place] [id number] Patient Primary Phone: [phone] Patient : 1965 Patient Age: 58 Call Back Number: [phone] Caller/Recipient Relation to Patient: Self Caller Name: NAV ANDRADE Emergency Contact: TIANA PINEDA Triage Summary Conducted triage/discussed symptoms Nursing Plan and Disposition Other course(s) of action Generated msg to PACT/Provider Nurse Summary Nurse Summary: Patient calls seeking pcp follow up appt following neuro eval 08/15. He states he stopped taking pain relievers as advised but not finding this helpful yet. Patient can be reached at # on file. _ Clinical Contact Center Codes Clinic/Location: [facility]ONE [facility] RN IMPORTANT: This note was created by [facility] Clinical Contact Center staff. Please do not alert the staff member by adding them as a signer for future communications. Alerts are not monitored by this user. /ankit/ ANA PANTOJA,RN CLINICAL CONTACT CENTER RN Signed: 08/25/2024 09:55 Receipt Acknowledged By: 08/25/2024 10:26 /es/ SURESH LAZO REGISTERED NURSE 08/25/2024 10:04 /es/ Glory Saldana RN Primary Care Staff Nurse 08/25/2024 ADDENDUM STATUS: COMPLETED Adding PCP for direction. Vet had telehealth Neuro appt on 08/25/24 and is following the plan for care given at this visit: >Recommendations: 1-patient to stop all short acting analgesics per above. 2-IF no improvement despite 1) for at least 3 weeks, then patient to contact PCP 3-Would recommend at that point that PCP order an ESR/CRP, an MRI Brain, and a [id number] neurology consult (not a teleheadache appointment with [facility]) or follow up with [facility]. Please advise- do you want a f2f visit? /ankit/ Glory Saldana RN Primary Care Staff Nurse Signed: 08/25/2024 10:03 Receipt Acknowledged By: 08/26/2024 09:38 /ankit/ HIREN TUTTLE MD PHYSICIAN 08/26/2024 ADDENDUM STATUS: COMPLETED plz inform vet he needs to do nonfasting labs anytime in next week or so at [facility], also CC team will arrange MRI for him AND [facility] neuro will offer him F2F appt after labs and MRI are done to discuss his headaches. if vet prefers to have F2F w/ PCP sooner than November, Jv can book. thanks /ankit/ HIREN TUTTLE MD PHYSICIAN Signed: 08/26/2024 09:40 Receipt Acknowledged By: 08/28/2024 08:44 /chris QUEZADA Advanced Permastone Mechanic 08/28/2024 11:21 /ankit/ Glory Saldana RN Primary Care Staff Nurse 08/28/2024 ADDENDUM STATUS: COMPLETED MSA called and spoke with giving this msg. /chris QUEZADA Advanced Permastone Mechanic Signed: 08/28/2024 08:43 08/28/2024 ADDENDUM STATUS: COMPLETED VET NEEDS APPT W/ PCP TO REVIEW RECOMMENDATIONS FOR HEADACHE CENTER/ SEE COMMENTS FROM [facility] NEURO PROVIDER. HE CAN STILL DO LABS AND WE WILL GO AHEAD WITH PLAN FOR MRI OF BRAIN, PCP F/U APPT IN NEXT FEW WEEKS, THANKS JV First step: Please let me know if we need to discuss the [facility] recommendations via peer to peer or DM. My understanding is that you will document the progress of 1-3 and then reconsult or DM us if the is no better off analgesics. 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 PCP can do an interdisciplinary call with [facility] staff, physician primary care sports medicine and myself to identify options, however Neurology may not have much to offer. /ankit/ HIREN TUTTLE MD PHYSICIAN Signed: 08/28/2024 12:29 Receipt Acknowledged By: 08/28/2024 13:30 /ankit/ JV QUEZADA Advanced Permastone Mechanic * AWAITING SIGNATURE * GLORY SALDANA 08/28/2024 ADDENDUM STATUS: COMPLETED Appt scheduled for 09/14. /ankit/ JV QUEZADA Advanced Permastone Mechanic Signed: 08/28/2024 13:29 [facility]IA [place] [facility]
--- OUTSIDE RECORDS SUMMARY | 2024-08-31 19:54 | XMS_ITS ---
Author Name [facility] [place] Address [address] [place] [address] Care Team Providers Care Leverman Name Role Phone HIREN TUTTLE Primary Care [...] STAND JORGITO Jul 19, 2019 MEDICAI D [id number] RAYMONDBraxton CHEN PATIENT MEDICAID MEDICAID MEDIC AID Jul 19, 2015 DO NOT BILL [id number] ANDRADEBraxton BOWEN PATIENT Selected Encounter This section includes the information on record at [place] for the Encounter. Date/Time Encounter Type Encounter Description Reason Provider Source Aug 08, 2024 10:00 AM PSYTX W PT 30 MINUTES [facility] - IND ICD-10-CM F33.1 Major depressive disorder, recurrent, moderate MARCELLA OSORIO Encounter Template Text not used by [facility] Assessments - Encounter Diagnoses This section includes the primary and secondary diagnoses documented for the Encounter. Date/Time Primary/Secondary Diagnosis Diagnosis Name Provider Source Aug 08, 2024 11:44 AM PRIMARY Major depressive disorder, recurrent, moderate DEVONMARCELLA [facility] Plan of Treatment: Future Appointments (+ 6 months) and Future Tests (+/- 45 days) The Plan of Treatment section includes future care activities for the patient from [facility] [place] [facility]. This section includes future appointments and future orders which are active, pending or scheduled. Future Appointments This section includes appointments that were scheduled to occur 6 months from the date of the Encounter, up to a maximum of 20 appointments. The data comes from all [facility]. Appointment Date/Time Appointment Type Appointme nt Facility Name Aug 15, 2024 01:00 PM [facility] Aug 15, 2024 01:00 PM [facility] Sep 05, 2024 10:00 AM [facility] Sep 14, 2024 09:30 AM [facility]UL[facility] Sep 19, 2024 10:00 AM [facility] [place] [facility] November 29, 2024 10:00 AM [facility] - [facility] [place] [facility] Jan 03, 2025 01:00 PM [facility]UL[facility]ORY [facility] Active, Pending, and Scheduled Orders This section includes a listing of several types of active, pending, and scheduled orders, including clinic medications orders, diagnostic test orders, procedure orders and consult orders; where the start date of the order is 45 days before the date of the Encounter or 45 days after the date of theEncounter. The data comes from all [facility]. Test Date/Time Test Type Test Details Facility Name Aug 26, 2024 09:41 AM Consult Order COMMUNITY CARE-MRI Cons Staff Pharmacist Hospital's Choice [facility] Lab Results: +/- 30 days of the encounter This section includes the Chemistry and Hematology Lab Results on record with [place] for the patient. Radiology Reports and Pathology Reports are provided separately, in subsequent sections. Lab Results This section contains the Chemistry/Hematology Results that were resulted 30 days before or 30 daysafter the date of the Encounter. Date/Time Source Result Type Result - Unit Interpretation Reference Range Comment Aug 28, 2024 12:42 PM [facility] C REACTIVE PROTEIN HS (WROX) Specimen Type: SERUM Comment: Reference range changed on 01/06/11 [facility] reference ranges for ages >17 [...] Aug 26, 2024 09:41 AM Reporting Lab: [facility] [address] [facility] [address] Performing Lab: [facility] [address] [facility] [address] C REACTIVE PROTEIN HS (WROX) 3.39 mg/L See eval. Aug 28, 2024 12:42 PM [facility] SED RATE, AUTOMATED Specimen Type: BLOOD No comment entered. Ordering Provider: MATTHEW TUTTLE Report Released Date/Time: Aug 26, 2024 09:41 AM Reporting Lab: [facility] [address] [address] Performing Lab: [facility] [address] [address] SED RATE, AUTOMATED 7 mm/h 0-20 Aug 28, 2024 12:42 PM [facility] CBC AND DIFF (AUTO) Specimen Type: BLOOD No comment entered. Ordering Provider: MATTHEW TUTTLE Report Released Date/Time: Aug 26, 2024 09:41 AM Reporting Lab: [facility] [address] [address] Performing Lab: [facility] [address] [address] WBC 7.03 10*3/uL 4.50-11.00 RBC 5.07 10*6/uL [...] and tobacco- related health factors from the [place] facility where the Encounter took place. Current Smoking Status This section includes the most current smoking, or tobacco-related health factor, from the [place] facility where the Encounter took place. Date/Time Current Smoking Status Comment Facil ity May 24, 2024 11:00 AM VA-TOBACCO NEVER USED [place] [facility] [place] [facility] Tobacco Use History This section includes a history of the smoking, or tobacco-related health factors, that were collected on or before the date of the Encounter. The data comes from the [place] facility where the Encounter took place. Date/Time Smoking Status/Tobacco Use Comment F acility May 17, 2023 11:30 AM VA-TOBACCO NEVER USED [place] [facility] [place] [facility] Mar 26, 2021 11:00 AM VA-TOBACCO NEVER USED [place] [facility] [place] [facility] Apr 16, 2020 09:00 AM VA-TOBACCO NEVER USED [place] [facility] [place] [facility] Jan 10, 2019 11:57 AM VA-TOBACCO NEVER USED [place] [facility] [place] [facility] Mar 31, 2018 03:49 PM LIFETIME NON-TOBACCO USER [place] [facility] [place] [facility] Mar 08, 2017 02:54 PM LIFETIME NON-TOBACCO USER [place] [facility] [place] [facility] Encounter Notes: All associated encounter notes This section contains the clinical notes associated to the Encounter. Date/Time Encounter Note(s) Provider Source Aug 08, 2024 10:28 AM PSYCHOLOGY NOTE: LOCAL TITLE: PSYCHOLOGY NOTE STANDARD TITLE: PSYCHOLOGY NOTE DATE OF NOTE: AUG 08, 2024@10:28 ENTRY DATE: AUG 08, 2024@10:28:49 AUTHOR: MARCELLA OSORIO EXP COSIGNER: URGENCY: STATUS: COMPLETED PSYCHOLOGY NOTE Has ADDENDA Date of session: Jul Duration of session: 25 Diagnosis: Depression Presenting Problem ([place] report): Mood is good, but headache is debilitating - a 10 or higher the past few days. Has elena't with neurology later this month, fears its not to start treatment. 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 Son is disappointed, looked forward to having his father at his school. Course of Session: Still uncertain about career path in the longer term. Wonders about going back to school to enhance credentials. Specific mental health/clinical interventions: Validation and Support Mental Status/Clinical Impression: 1. Appearance (grooming, attire, [...] Date of next planned contact: 2 weeks /es/ MARCELLA OSORIO, PhD Clinical Psychologist Signed: 08/08/2024 11:44 08/15/2024 ADDENDUM STATUS: COMPLETED Suicide Screen: C-SSRS Screening [place]-Suicide Severity Rating Scale (C-SSRS Screener) 1. Over the past month, have you wished you were or wished you could go to sleep and not wake up? Yes 2. Over the past month, have you had any actual thoughts of killing yourself? No 3. Over the past month, have you been thinking about how you might do this? Response not required due to responses to other questions. 4. Over the past month, have you had these thoughts and had some intention of acting on them? Response not required due to responses to other questions. 5. Over the past month, have you started to work out or worked out the details of how to kill yourself? Response not required due to responses to other questions. 6. If yes, at any time in the past month did you intend to carry out this plan? Response not required due to responses to other questions. 7. In your lifetime, have you ever done anything, started to do anything, or prepared to do anything to end your life (for example, collected pills, obtained a gun, gave away valuables, went to the roof but didn't jump)? Yes 8. If YES, was this within the past 3 months? No /es/ MARCELLA OSORIO, PhD Clinical Psychologist Signed: 08/15/2024 08:59 MARCELLA OSORIO [place] [facility]
--- OUTSIDE RECORDS SUMMARY | 2024-08-31 19:54 | XMS_ITS ---
Author Name [facility] [place] Address [address] [place] [address] Care Team Providers Care Weight Calculator Name Role Phone HIREN TUTTLE Primary Care [...] STAND JORGITO Jul 19, 2019 MEDICAI D [id number] ANDRADEBraxton CHEN PATIENT MEDICAID MEDICAID MEDIC AID Jul 19, 2015 DO NOT BILL [id number] Braxton ANDRADE JENISEJonh PATIENT Selected Encounter This section includes the information on record at [place] for the Encounter. Date/Time Encounter Type Encounter Description Reason Pro vider Source Aug 15, 2024 01:00 PM Outpatient Encounter ADMIN PAT ACTIVTIES (MASNONCT) IHE Encounter Template Text not used by [place] Plan of Treatment: Future Appointments (+ 6 [...] 20 appointments. The data comes from all [facility]. Appointment Date/Time Appointment Type Appointme nt Facility Name Sep 05, 2024 10:00 AM AMBULATORY - PSYCHIATRY [facility] Sep 14, 2024 09:30 AM [facility] Sep 19, 2024 10:00 AM AMBULATORY - PSYCHIATRY [facility] November 29, 2024 10:00 AM AMBULATORY - MEDICINE [facility] Jan 03, 2025 01:00 PM AMBULATORY MEDICINE [facility] Active, Pending, and Scheduled Orders This section includes a listing of several types of active, pending, and scheduled orders, including clinic medications orders, diagnostic test orders, procedure orders and consult orders; where the start date of the order is 45 days before the date of the Encounter or 45 days after the date of theEncounter. The data comes from all [facility]. Test Date/Time Test Type Test Details Facility Name Aug 26, 2024 09:41 AM Consult Order COMMUNITY CARE-MRI Cons Insurance Healthcare Representative's Choice [facility] Lab Results: +/- 30 days of the encounter This section includes the Chemistry and Hematology Lab Results on record with [facility] for the patient. Radiology Reports and Pathology Reports are provided separately, in subsequent sections. Lab Results This section contains the Chemistry/Hematology Results that were resulted 30 days before or 30 daysafter the date of the Encounter. Date/Time Source Result Type Result - Unit Interpretation Reference Range Comment Aug 28, 2024 12:42 PM [facility] C REACTIVE PROTEIN HS (WROX) Specimen Type: SERUM Comment: Reference range changed on 01/06/11 CRP reference ranges for ages >17 years: hsCRP [...] Aug 26, 2024 09:41 AM Reporting Lab: [facility] [address] [facility] [address] Performing Lab: [facility]ITALR[facility]ERN [facility] [address] [facility] [address] C REACTIVE PROTEIN HS (WROX) 3.39 mg/L See eval. Aug 28, 2024 12:42 PM [facility]ERN [facility] SED RATE, AUTOMATED Specimen Type: BLOOD No comment entered. Ordering Provider: MATTHEW TUTTLE Report Released Date/Time: Aug 26, 2024 09:41 AM Reporting Lab: [facility]ERN [facility]ITALUSE[address] [address] Performing Lab: [facility]ITALUSE[address] [address] SED RATE, AUTOMATED 7 mm/h 0-20 Aug 28, 2024 12:42 PM [facility] CBC AND DIFF (AUTO) Specimen Type: BLOOD No comment entered. Ordering Provider: MATTHEW TUTTLE Report Released Date/Time: Aug 26, 2024 09:41 AM Reporting Lab: [facility]ITALRFA[facility]ENTERN [address] [address] Performing Lab: [facility]ITALR[facility]ERN [facility]ITALUSE[address] [address] WBC 7.03 10*3/uL 4.50-11.00 RBC 5.07 10*6/uL [...] and tobacco- related health factors from the [place] facility where the Encounter took place. Current Smoking Status This section includes the most current smoking, or tobacco-related health factor, from the [place] facility where the Encounter took place. Date/Time Current Smoking Status Comment Krishan mike May 24, 2024 11:00 AM VA-TOBACCO NEVER USED [place] [facility] [place] [facility] Tobacco Use History This section includes a history of the smoking, or tobacco-related health factors, that were collected on or before the date of the Encounter. The data comes from the [place] facility where the Encounter took place. Date/Time Smoking Status/Tobacco Use Comment F acjennifer May 17, 2023 11:30 AM VA-TOBACCO NEVER USED [place] [facility] [place] [facility] Mar 26, 2021 11:00 AM VA-TOBACCO NEVER USED [facility] [place] [facility] Apr 16, 2020 09:00 AM VA-TOBACCO NEVER USED [facility] [place] [facility] Jan 10, 2019 11:57 AM VA-TOBACCO NEVER USED [facility] [place] [facility] Mar 31, 2018 03:49 PM LIFETIME NON-TOBACCO USER [facility] [place] [facility] Mar 08, 2017 02:54 PM LIFETIME NON-TOBACCO USER [place] [facility] Encounter Notes: All associated encounter notes This section contains the clinical notes associated to the Encounter. Date/Time Encounter Note(s) Provider Source Aug 15, 2024 01:00 PM NEUROLOGY OUTPATIE NT NOTE: LOCAL TITLE: NEUROLOGY CLINIC NOTE STANDARD TITLE: NEUROLOGY OUTPATIENT NOTE DATE OF NOTE: AUG 15, 2024@13:00 ENTRY DATE: AUG 15, 2024@13:01:06 AUTHOR: MAXWELL QUEZADA EXP COSIGNER: URGENCY: STATUS: COMPLETED Tele-Headache Initial Consultation Tele-Headache Progress note-[place] Based Clinical [facility] Neurology Physician Note The consented to telehealth services. Patient address and safety in case of emergency were confirmed. Patient's phone number and Emergency Contact phone number were confirmed PRovider Location Communicated In Attendence:1) 2)Provider Virtual Room Locked for Privacy CC:Headache HPI:58 yo M states that he has had a continuous headache for past three months, with prior headaches 2/month starting 10 yrs prior. Typical Headache Features: Location:frontal, temporal, left>right Max Intensity(1-10):10 Quality:sharp, Time to Max Intensity:continuous Total Duration:continuous Photophobia (Y/N):y PhonoPhobia (Y/N):y KinesoPhobia (Y/N):y n/v(early): n/v(late): sometimes Visual Aura (Describe):rare Other Aura:no Migraine Days/Month:30/30 Total Headache Days/Month: TBI (Mild or Other than Mild): fell when in arm, no LOC, not clearly dazed Triggers (Food, Other): none OTCs: Typical Acute Headache Treatment: excedrin OTC-500mg Q 4 hrs, or fioricet, Preventative Medications (Current): Failed Headache Medications: sumatriptan-didn't work Sleep:sleep apnea, uses CPAP most of the time , full face mask -Onset-minutes with a pill: -Maintenance-poor -Total Duration-7 hrs +EDS Caffeine: 1 cup coffee in AM CardioExercise:no Prior Imaging (CT/MRI):Saw emergency room in [place], states that he received a CT scan, records not available. ROS: No new visual, auditory or cognitive issues, no new weakness or numbness, + chest pain-has spoken to physician regarding, no belly pain, no shortness of breath, no melena, no heamtochezia, all others negative. PMHx/Problem List: Active problems - Computerized Problem List is the source for the followin. Daytime somnolence 2. Speech problem 3. GERD - Gastro-Esophageal Reflux Disease ([facility] [id number]) 4. Treadmill stress test negative for angina pectoris 5. Carpal tunnel 6. Tremor 7. Chronic Post-Traumatic Stress Disorder Following Combat ([facility] [id number] 8. Sleep Apnea ([facility] [id number]) 9. Headache 10. Painful arms and moving fingers 11. Cervical osteoarthritis 12. Elbow pain 13. Lateral epicondylitis of right humerus 14. Chronic low back pain 15. HLD - Hyperlipidemia 16. Chronic back pain 17. Hypertension 18. Adult screening status 19. Under care of multiple providers 20. Screening status 21. History of surgery 22. Stutter 23. Pain of bilateral hands 24. Anaphylactic reaction 25. Major depression Current Medication List: Active Outpatient Medications (including Supplies): Active Outpatient Medications Status 1) BISOPROLOL FUMARATE 5MG TAB TAKE ONE TABLET BY MOUTH ONCE ACTIVE DAILY Indication: FOR HIGH BLOOD PRESSURE 2) BUPROPION 150MG 24HR XL TAB (ONCE DAILY) TAKE ONE TABLET BY ACTIVE (S) MOUTH ONCE DAILY Indication: FOR DEPRESSION 3) CETIRIZINE HCL 10MG TAB TAKE ONE TABLET BY MOUTH ONCE DAILY ACTIVE Indication: FOR ALLERGIES 4) EPINEPHRINE (EQV-EPI-PEN) 0.3MG/0.3ML INJECT DIRECTED ACTIVE INTRAMUSCULARLY ONE TIME Indication: FOR LIFE THREATENING ALLERGIC REACTION 5) GABAPENTIN 300MG CAP TAKE TWO CAPSULES BY MOUTH EVERY ACTIVE MORNING AND TAKE ONE CAPSULE AT NOON AND TAKE TWO CAPSULES AT BEDTIME-back pain Indication: FOR NERVE PAIN 6) MELATONIN 5MG CAP/TAB TAKE ONE CAPSULE/TABLET BY MOUTH AT ACTIVE BEDTIME NEEDED Indication: FOR INSOMNIA 7) PRAZOSIN HCL 2MG CAP TAKE FOUR CAPSULES BY MOUTH AT BEDTIME ACTIVE Indication: PTSD 8) SERTRALINE HCL 100MG TAB TAKE TWO TABLETS BY MOUTH ONCE ACTIVE (S) DAILY Indication: FOR MAJOR DEPRESSIVE DISORDER 9) SIMVASTATIN 40MG TAB TAKE ONE-HALF TABLET BY MOUTH ONCE ACTIVE DAILY FOR CHOLESTEROL Indication: FOR HIGH CHOLESTEROL 10) TRAZODONE HCL 100MG TAB TAKE ONE TABLET BY MOUTH AT BEDTIME ACTIVE (S) AND TAKE ONE-HALF TABLET AT BEDTIME NEEDED Indication: FOR SLEEP Active Non-VA Medications Status 1) Non-VA EPINEPHRINE (EQV-EPI-PEN) 0.3MG/0.3ML DIRECTED ACTIVE INTRAMUSCULARLY 2) Non-VA MELATONIN 5MG CAP/TAB 10MG BY MOUTH AT BEDTIME ACTIVE 12 Total Medications Medication list reconciled with patient Allergies: TRAMADOL, LACTOSE, FOOD PRESERVATIVES Social: Employment:not working in past three months Family History-Headache: brothers EtOH: Tob: Examination: Unable to Examine due to technical issues. Impression: 1-Continuous headache syndrome with patient indicating he is taking daily/multiple short acting analgesic medications in setting of prior likely migrainous headaches. Patient is advised to stop all short-acting analgesics (tylenol, ibuprofen, excedrin, fioricet, naproxen) for at least two weeks, and then contact his primary care physician. Given the limits of telemedicine, further evaluation would be served by sending patient to a face-2 face in-person appointment which would include a full neurological examination and fundoscopic examination if headaches do not improve. Keri is instructed to contact his primary care provider after washout period. Other considerations should include GCA or new onset mass lesion. Recommendations: 1-patient to stop all short acting analgesics per above. 2-IF no improvement despite 1) for at least 3 weeks, then patient to contact PCP 3-Would recommend at that point that PCP order an ESR/CRP, an MRI Brain, and a gacc-mi-hclx neurology consult (not a teleheadache appointment with [facility]) or follow up with [facility]. (X)Patient was reminded to review medication lists for accuracy. (X)Neurologic condition and management, including choice of medications and therapies, was evaluated and discussed with patient based on his complex other medical conditions. (X)Reviewed indications for neurological medications, as well as side effects and precauions. At this point the benefits outweigh the drawbacks. Patient verbalizes understanding. 60 mins spent on exam, assessment, counseling, and coordination of medical care, including explaining therapeutic options and diagnostic testing. More than 50% of the time of this visit was spent with the patient discussing treatment/diagnostic options, education and in coordination. Active problems - Computerized Problem List is the source for the followin. Daytime somnolence 2. Speech problem 3. GERD - Gastro-Esophageal Reflux Disease ([facility] [id number]) 4. Treadmill stress test negative for angina pectoris 5. Carpal tunnel 6. Tremor 7. Chronic Post-Traumatic Stress Disorder Following Combat ([facility] [id number] 8. Sleep Apnea ([facility] [id number]) 9. Headache 10. Painful arms and moving fingers 11. Cervical osteoarthritis 12. Elbow pain 13. Lateral epicondylitis of right humerus 14. Chronic low back pain 15. HLD - Hyperlipidemia 16. Chronic back pain 17. Hypertension 18. Adult screening status 19. Under care of multiple providers 20. Screening status 21. History of surgery 22. Stutter 23. Pain of bilateral hands 24. Anaphylactic reaction 25. Major depression Active Outpatient Medications (including Supplies): Active Outpatient Medications Status 1) BISOPROLOL FUMARATE 5MG TAB TAKE ONE TABLET BY MOUTH ONCE ACTIVE DAILY Indication: FOR HIGH BLOOD PRESSURE 2) BUPROPION 150MG 24HR XL TAB (ONCE DAILY) TAKE ONE TABLET BY ACTIVE (S) MOUTH ONCE DAILY Indication: FOR DEPRESSION 3) CETIRIZINE HCL 10MG TAB TAKE ONE TABLET BY MOUTH ONCE DAILY ACTIVE Indication: FOR ALLERGIES 4) EPINEPHRINE (EQV-EPI-PEN) 0.3MG/0.3ML INJECT DIRECTED ACTIVE INTRAMUSCULARLY ONE TIME Indication: FOR LIFE THREATENING ALLERGIC REACTION 5) GABAPENTIN 300MG CAP TAKE TWO CAPSULES BY MOUTH EVERY ACTIVE MORNING AND TAKE ONE CAPSULE AT NOON AND TAKE TWO CAPSULES AT BEDTIME Indication: FOR NERVE PAIN 6) MELATONIN 5MG CAP/TAB TAKE ONE CAPSULE/TABLET BY MOUTH AT ACTIVE BEDTIME NEEDED Indication: FOR INSOMNIA 7) PRAZOSIN HCL 2MG CAP TAKE FOUR CAPSULES BY MOUTH AT BEDTIME ACTIVE Indication: PTSD 8) SERTRALINE HCL 100MG TAB TAKE TWO TABLETS BY MOUTH ONCE ACTIVE (S) DAILY Indication: FOR MAJOR DEPRESSIVE DISORDER 9) SIMVASTATIN 40MG TAB TAKE ONE-HALF TABLET BY MOUTH ONCE ACTIVE DAILY FOR CHOLESTEROL Indication: FOR HIGH CHOLESTEROL 10) TRAZODONE HCL 100MG TAB TAKE ONE TABLET BY MOUTH AT BEDTIME ACTIVE (S) AND TAKE ONE-HALF TABLET AT BEDTIME NEEDED Indication: FOR SLEEP Active Non-VA Medications Status 1) Non-VA EPINEPHRINE (EQV-EPI-PEN) 0.3MG/0.3ML DIRECTED ACTIVE INTRAMUSCULARLY 2) Non-VA MELATONIN 5MG CAP/TAB 10MG BY MOUTH AT BEDTIME ACTIVE 12 Total Medications Allergies: TRAMADOL, LACTOSE, FOOD PRESERVATIVES Vitals Enter at: May 24, 2024@11:11:48 BP: 120/73 P: 61 R: 19 /es/ Maxwell Quezada MD, MPH [id number] [facility] TelePain Lead Signed: 08/15/2024 13:29 Receipt Acknowledged By: 08/15/2024 15:58 /ankit/ HIREN TUTTLE MD PHYSICIAN MAXWELL QUEZADA [facility]
--- OUTSIDE RECORDS SUMMARY | 2024-08-31 19:54 | XMS_ITS | Encounter Summary ---
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 Date/Time Encounter Type Encounter Description Reason Provider Source Aug 15, 2024 01:00 PM SYNCH AUDIO-VIDEO NEW LOW 30 H[facility]E ICD-10-CM G44.41 Drug-induced headache, not elsewhere classified, intractable MAXWELL QUEZADA [employer] Encounter Template Text not used by [facility] Assessments - Encounter Diagnoses This section includes the primary and secondary diagnoses documented for the Encounter. Date/Time Primary/Secondary Diagnosis Diagnosis Name Provider Source Aug 16, 2024 08:23 AM PRIMARY Drug-induced headache, not elsewhere classified, intractable MAXWELL QUEZADA [facility] Plan of Treatment: Future Appointments (+ 6 months) and Future Tests (+/- 45 days) The Plan of Treatment section includes future care activities for the patient [facility] [place] [facility] This section includes future appointments and future orders which are active, pending or scheduled. Future Appointments This section includes appointments that were scheduled to occur 6 months from the date of the Encounter, up to a maximum of 20 appointments. The data comes from all [facility]. Appointment Date/Time Appointment Type Appointme nt Facility Name Sep 05, 2024 10:00 AM AMBULATORY PSYCHIATRY [facility] Sep 14, 2024 09:30 AM AMBULATORY MEDICINE [facility] Sep 19, 2024 10:00 AM AMBULATORY PSYCHIATRY [facility] November 29, 2024 10:00 AM AMBULATORY MEDICINE [facility] Jan 03, 2025 01:00 PM AMBULATORY MEDICINE [facility] Active, Pending, and Scheduled Orders This section includes a listing of several types of active, pending, and scheduled orders, including clinic medications orders, diagnostic test orders, procedure orders and consult orders; where thestart date of the order is 45 days before the date of the Encounter or 45 days after the date of the Encounter. The data comes from all [facility]. Test Date/Time Test Type Test Details Facility Name Aug 26, 2024 09:41 AM Consult Order COMM[facility]ITY [facility]ARE-MRI Cons Auto Emissions Technician's Choice [facility] Lab Results: +/- 30 days of the encounter This section includes the Chemistry and Hematology Lab Results on record with [place] for the patient. Radiology Reports and Pathology Reports are provided separately, in subsequent sections. Lab Results This section contains the Chemistry/Hematology Results that were resulted 30 days before or 30 daysafter the date of the Encounter. Date/Time Source Result Type Result - Unit Interpretation Reference Range Comment Aug 28, 2024 12:42 PM [facility] C REACTIVE PROTEIN HS (WROX) Specimen [...] Aug 26, 2024 09:41 AM Reporting [facility] [address] [facility] [id number] Performing Lab: [facility] [address] [facility] [id number] C REACTIVE PROTEIN HS (WROX) 3.39 mg/L See evkaty. Aug 28, 2024 12:42 PM [facility] SED RATE, AUTOMATED Specimen Type: BLOOD No comment entered. Ordering Provider: MATTHEW TUTTLE Report Released Date/Time: Aug 26, 2024 09:41 AM Reporting Lab: [facility] [address] [facility] [address] Performing Lab: [facility] [address] SED RATE, AUTOMATED 7 mm/h 0-20 Aug 28, 2024 12:42 PM [facility] CBC AND DIFF (AUTO) Specimen Type: BLOOD No comment entered. Ordering Provider: MATTHEW TUTTLE Report Released Date/Time: Aug 26, 2024 09:41 AM Reporting Lab: [facility] [address] [facility] [address] Performing Lab: [facility] [address] WBC 7.03 10*3/uL 4.50-11.00 RBC 5.07 10*6/uL [...] 0.0 0.0-0.0 NRBC, ABS 0.00 10*3/uL 0.00-0.00 Encounter Notes: All associated encounter notes This section contains the clinical notes associated to the Encounter. Date/Time Encounter Note(s) Provider Source Aug 16, 2024 08:22 AM NEUROLOGY OUTPATIE NT CONSULT: LOCAL TITLE: NEUROLOGY OUTPATIENT CONSULT NOTE STANDARD TITLE: NEUROLOGY OUTPATIENT CONSULT DATE OF NOTE: AUG 16, 2024@08:22 ENTRY DATE: AUG 16, 2024@08:22:47 AUTHOR: MAXWELL QUEZADA EXP COSIGNER: URGENCY: STATUS: COMPLETED Clinical services provided by Dr. Maxwell Quezada via telehealth from the [facility] to the [facility] site located in the [facility]. Clinical Service provided: consult Service Delivery Method: VVC Length of Service:30 min Primary Diagnosis:Migraine, Intractable, with or without aura For a complete progress note, please see the [facility] Medical record (accessible through [facility]). /ankit/ Maxwell Quezada MD, MPH [id number] [facility] TelePain Lead Signed: 08/16/2024 08:23 MAXWELL QUEZADA [facility]
--- OUTSIDE RECORDS SUMMARY | 2024-08-31 19:54 | XMS_ITS ---
Author Name [facility] Organization [facility] [place] Address [address] [place] [address] Care Team Providers Care Front Desk Worker Name Role Phone HIREN TUTTLE Primary [...] STAND JORGITO Jul 19, 2019 MEDICAI D [id number] RAYMONDBraxton CHEN PATIENT MEDICAID MEDICAID MEDIC AID Jul 19, 2015 DO NOT BILL [id number] SHERMANBraxton BOWEN PATIENT Selected Encounter This section includes the information on record at [place] for the Encounter. Date/Time Encounter Type Encounter Description Reason Provider Source May 24, 2024 11:00 AM OFFICE O/P EST LOW 20 MIN PRIMARY CARE/MEDICINE ICD-10-CM G43.909 Migraine, unsp, not intractable, without status migrainosus Sahil TUTTLE Encounter Template Text not used by VA Assessments - Encounter Diagnoses This section includes the primary and secondary diagnoses documented for the Encounter. Date/Time Primary/Secondary Diagnosis Diagnosis Name Provider Source May 24, 2024 12:32 PM PRIMARY Migraine, unsp, not intractable, without status migrainosus MARRY HIREN Oliveira [facility] [place] [facility] May 24, 2024 12:32 PM SECONDARY Encounter for immunization GLORY SALDANA [facility] [place] [facility] May 24, 2024 12:32 PM SECONDARY activity MARRY HIREN Tee [facility] [place] [facility] May 24, 2024 12:32 PM SECONDARY Post-traumatic stress disorder, chronic KameronWillaARTEM HIREN [facility] [place] Plan of Treatment: Future Appointments (+ 6 months) and Future Tests (+/- 45 days) The Plan of Treatment section includes future care activities for the patient from all [place] treatmentfacilities. This section includes future appointments and future orders which are active, pending or scheduled. Future Appointments This section includes appointments that were scheduled to occur 6 months from the date of the Encounter, up to a maximum of 20 appointments. The data comes from all [place] treatment facilities. Appointment Date/Time Appointment Type Appointme nt Facility Name May 26, 2024 01:00 PM [facility] [place] Jun 20, 2024 09:30 AM AMBUL[facility] [place] [facility] Jun 23, 2024 02:00 PM AM[facility]UL[facility] [place] [facility] Jul 05, 2024 08:30 AM AMBUL[facility] [place] [facility] Jul 06, 2024 11:00 AM AMBUL[facility] [place] Jul 25, 2024 11:30 AM [facility]BUL[facility] [place] [facility] Aug 08, 2024 10:00 AM AMBULAT[facility] [place] [facility] Aug 15, 2024 01:00 PM AMBULATORY [facility]UROLOGY [facility] [place] [facility] Aug 15, 2024 01:00 PM AMBULATORY - NEUROLOGY [facility] Sep 05, 2024 10:00 AM AMBUL[facility] [place] [facility] Sep 14, 2024 09:30 AM AMBULATORY - MEDICINE [facility] Sep 19, 2024 10:00 AM [facility] Lab Results: +/- 30 days of the encounter This section includes the Chemistry and Hematology Lab Results on record with [place] for the patient. Radiology Reports and Pathology Reports are provided separately, in subsequent sections. Lab Results This section contains the Chemistry/Hematology Results that were resulted 30 days before or 30 daysafter the date of the Encounter. Date/Time Source Result Type Result - Unit Interpretation Reference Range Comment May 24, 2024 12:16 PM [facility] TSH Specimen Type: SERUM No comment entered. Ordering Provider: HIREN TUTTLE Report Released Date/Time: May 24, 2024 11:32 AM Reporting Lab: [address] [address] Performing Lab: [address] [address] TSH 1.52 u[IU]/mL 0.35-5.00 May 24, 2024 12:16 PM [facility] LIVER FUNCTION Specimen Type: SERUM No comment entered. Ordering Provider: HIREN TUTTLE Report Released Date/Time: May 24, 2024 11:32 AM Reporting Lab: [address] [address] Performing Lab: [address] [address] PROTEIN,TOTAL 6.8 g/dL 6.0-8.3 ALBUMIN 3.9 g/dL 3.5-5.0 ALKALINE PHOSPHATASE 80 U/L 40-150 AST 19 U/L 5-34 ALT 21 U/L BILIRUBIN, TOTAL 0.5 mg/dL 0.2-1.2 May 24, 2024 12:16 PM [facility] PSA Specimen Type: SERUM No comment entered. Ordering Provider: HIREN TUTTLE Report Released Date/Time: May 24, 2024 11:32 AM Reporting Lab: [address] [place] [address] Performing Lab: [address] [address] PSA 2.42 ng/mL 0.00-4.00 May 24, 2024 12:16 PM [facility] URINALYSIS CLEAN CATCH Specimen Type: URINE Comment: If Glucose = >500 and Ketones are positive, please alert the Physician. Ordering Provider: HIREN TUTTLE Report Released Date/Time: May 24, 2024 11:32 AM Reporting Lab: [address] [address] Performing Lab: [address] [address] UA COLOR Light-Yellow Yellow UA APPEARANCE Clear Clear UA GLUCOSE Normal mg/dL Negative UA KETONES NEGATIVE mg/dL Negative UA BLOOD NEGATIVE mg/dL Negative UA PROTEIN NEGATIVE mg/dL Negative UA NITRITE NEGATIVE mg/dL Negative UA BILIRUBIN NEGATIVE mg/dL Negative UA SPECIFIC GRAVITY 1.023 H 1.016-1.022 UA pH 6.5 5.0-9.0 UA UROBILINOGEN Normal mg/dL <2.0 UA LEUKOCYTE NEGATIVE Negative May 24, 2024 12:16 PM [facility] BASIC METABOLIC PANEL (non-fasting) Specimen Type: SERUM No comment entered. Ordering Provider: HIREN TUTTLE Report Released Date/Time: May 24, 2024 11:32 AM Reporting Lab: [address] [address] Performing Lab: [address] [address] UREA NITROGEN 12 mg/dL 7-25 GLUCOSE 107 mg/dL H 65-100 SODIUM 139 mmol/L 135-145 POTASSIUM 4.2 mmol/L 3.5-5.0 CHLORIDE 104 mmol/L 100-110 CO2 25 meq/L 20-30 CREATININE, Serum 0.85 mg/dL 0.50-1.40 eGFR(CKD-EPI 2020) >90 mL/min >60 May 24, 2024 12:16 PM [facility] CBC AND DIFF (AUTO) Specimen Type: BLOOD No comment entered. Ordering Provider: HIREN TUTTLE Report Released Date/Time: May 24, 2024 11:32 AM Reporting Lab: [facility] [address] [facility] [address] Performing Lab: [facility] [address] [facility] [address] WBC 5.72 10*3/uL 4.50-11.00 RBC 5.02 10*6/uL [...] 0.0 0.0-0.0 NRBC, ABS 0.00 10*3/uL 0.00-0.00 Vital Signs: All taken on the encounter date This section contains inpatient and outpatient Vital Signs collected on the date of the Encounter. Date/Time Temperature Pulse Blood Pressure Respiratory Rate SP02 Pain Height Weight Body Mass Index Source May 24, 2024 11:11 AM 61 120/73 19 [address] [facility] Immunizations: All administered on the encounter date This section contains immunizations associated to the Encounter. Immunization Series Date Issued Reaction Comments INFLUENZA, SPLIT VIRUS, TRIVALENT, PF May 24 Social History: Smoking Status (Most current) and [...] 24, 2024 11:00 AM VA-TOBACCO NEVER USED [facility] [place] [facility] Tobacco Use History This section includes a history of the smoking, or tobacco-related health factors, that were collected on or before the date of the Encounter. The data comes from the [place] facility where the Encounter took place. Date/Time Smoking Status/Tobacco Use Comment F acility May 17, 2023 11:30 AM VA-TOBACCO NEVER USED [place] [facility] [place] [facility] Mar 26, 2021 11:00 AM VA-TOBACCO NEVER USED [place] [facility] [place] [facility] Apr 16, 2020 09:00 AM VA-TOBACCO NEVER USED [place] [facility] [place] [facility] Jan 10, 2019 11:57 AM VA-TOBACCO NEVER USED [place] [facility] [place] [facility] Mar 31, 2018 03:49 PM LIFETIME NON-TOBACCO USER [facility] [place] [facility] Mar 08, 2017 02:54 PM LIFETIME NON-TOBACCO USER [facility] [place] [facility] Pathology Reports: +/- 30 days of [...] the Encounter. The data comes from all [place] treatment facilities. Date/Time Pathology Report Provider Source May 24, 2024 12:16 PM LR MICROBIOLOGY RE PORT: Reporting Lab: [facility] [CLIA# [id number]] [address] [place] [address] Accession [UID]: [id number] [[id number]] Received: May 24, 2024@12:16 Collection sample: URINE CLEAN CATCH Collection date: May 24, 2024 12:16 Site/Specimen: URINE Provider: HIREN TUTTLE Comment on specimen: cc Test(s) ordered: URINE CULTURE(MWROX).......... completed: May 30, 2024 07:58 * BACTERIOLOGY FINAL REPORT => May 30, 2024 07:58 TECH CODE: [id number] Bacteriology Remark(s): >10,000 - <25,000 CFU/ML MIXED GRAM POSITIVE MELISSA No further workup =--=--=--=--=--=--=--=-- =--=--=--=--=--=--=--=-- =--=--=--=--=--=--=--=-- =--=-- Performing Laboratory: Bacteriology Report Performed By: [facility] [CLIA# [id number]] [address] [place] [address] [facility] Encounter Notes: All associated encounter notes This section contains the clinical notes associated to the Encounter. Date/Time Encounter Note(s) Provider Source May 24, 2024 11:14 AM PREVENTIVE MEDICINE NURSING NOTE: LOCAL TITLE: CLINICAL REMINDERS/NURSING STANDARD TITLE: PREVENTIVE MEDICINE NURSING NOTE DATE OF NOTE: MAY 24, 2024@11:14 ENTRY DATE: MAY 24, 2024@11:14:12 AUTHOR: GLORY SALDANA EXP COSIGNER: URGENCY: STATUS: COMPLETED CLINICAL REMINDERS/NURSING Has ADDENDA Colonoscopy GAP Reminder: Recommendations are needed in the clinical reminder system following the patient's most recent colorectal cancer screening/surveillance test (Colonoscopy, Sigmoidoscopy or CT Colonography) Prior/outside colonoscopy results: [facility] Date: February 07, 2023 Colonoscopy reminder set 4 years from MAY 24, 2024. Tobacco Use Screening: The patient has never used tobacco. Alcohol Use Screen (AUDIT-C): Alcohol Screen: SCREEN FOR ALCOHOL (AUDIT-C) An alcohol screening test (AUDIT-C) was negative (score=0). 1. How often did you have a drink containing alcohol in the past year? Consider a drink to be a 12 ounce can or bottle of regular beer, 8 ounces of malt liquor, a 5 ounce glass of table wine, or a 1.5 ounce shot of liquor (like scotch, gin, or vodka). Never 2. How many drinks containing alcohol did you have on a typical day when you were drinking in the past year? Response not required due to responses to other questions. 3. How often did you have six or more drinks on one occasion in the past year? Response not required due to responses to other questions. COVID-19 Immunization: Refused Moderna Monovalent COVID-19 vaccine Immunization: COVID-19 (MODERNA), MRNA, LNP-S, PF, 50 MCG/0.5 ML (AGES 12+ YEARS) Refusal Reason: PATIENT DECISION Patient refuses all immunization(s) in the COVID-19 group Date Documented: 05/24/24 11:16 /chris Saldana RN Primary Care Staff Nurse Signed: 05/24/2024 11:16 05/24/2024 ADDENDUM STATUS: COMPLETED Influenza Immunization: Influenza, Trivalent, Preservative Free (Fluarix-Syringe) Administered: INFLUENZA, SPLIT VIRUS, TRIVALENT, PF Date Administered: May 24, 2024 11:00 Fitting Room Associate: [employer] Lot: [id number] Exp Date: Jan 15, 2025 [facility]: [id number] Admin Route/Site: INTRAMUSCULAR/LEFT DELTOID Dosage: 0.5mL Vaccine Information Statement(s): INFLUENZA(FLU) VACC(INACTIVATED OR RECOMBINANT)VIS Feb 21, 2021 (POLISH) Order By: Policy Administered By: Glory Saldana The Influenza Vaccine Information Statement (VIS) was reviewed with the patient/caregiver which lists the benefits and risks of the vaccine and the risks of not receiving the Influenza vaccine. The patient/caregiver denied any prior severe reaction to this vaccine or its components or a severe allergic reaction, such as anaphylaxis, to any vaccine or any injectable therapy. The patient/caregiver gave verbal consent to receive the vaccine. /ankit/ Glory Saldana RN Primary Care Staff Nurse Signed: 05/24/2024 11:23 05/24/2024 ADDENDUM STATUS: COMPLETED Per PCP request following note was written on [place] letterhead: 05/24/24 To Whom It May Concern: Ramos Sherman is under my medical care. This has a great deal of stress trying to cope with his shelter from [employer]. He has [place] adjustment disorder and diagnosed with PTSD by [place] psychiatry in 2021. He also has multiple other comorbid issues. Please assist with [employer] shelter. It is my opinion he is unfit for duty . Thank you. Hiren Tuttle MD /chris Saldana RN Primary Care Staff Nurse Signed: 05/24/2024 11:58 GLORY SALDANA [facility] [place] [facility] May 24, 2024 08:09 AM PHYSICIAN NOTE: LOCAL TITLE: MD NOTE STANDARD TITLE: PHYSICIAN NOTE DATE OF NOTE: MAY 24, 2024@08:09 ENTRY DATE: MAY 24, 2024@08:10 AUTHOR: JOSEF TUTTLE EXP COSIGNER: URGENCY: STATUS: COMPLETED HISTORY OF PRESENT ILLNESS: RAMOS SHERMAN, is a 58 yo WHITE MALE who presents at the [place] [facility]. headache HPI. vet describes stress in his life. he is trying to retire from [employer] and when he gets letter or some form of contact with [employer] personnel he feels rage inside . he asks this financial writer for letter to help expedite his shelter/see below. He describes having a headache every day for past 43 days and he has been to urgent care and to [facility] ED where he rec'd toradol shot to help with headache pain. he has used tylenol in past with excedrin and he hopes to see [facility] neuro for possible botox. he denies fevers or vomiting. danielle has PTSD dx'd by [place] psychiatry/Dr Bustos in 2021. SH nonsmoker Active problems - Computerized Problem List is the source for the followin. Daytime somnolence 2. Speech problem 3. GERD - Gastro-Esophageal Reflux Disease ([facility] [id number]) 4. Treadmill stress test negative for angina pectoris 5. Carpal tunnel 6. Tremor 7. Chronic Post-Traumatic Stress Disorder Following Combat ([facility] [id number] 8. Sleep Apnea ([facility] [id number]) 9. Headache 10. Painful arms and moving [...] hands 24. Anaphylactic reaction 25. Major depression HISTORY: PERIOD OF SERVICE - [facility] FROM November TO November COMBAT SERVICE INDICATED: No SERVICE CONNECTED % - 70 VITAL SIGNS: Temperature 96.7 F [35.9 C] (10/18/2023 10:01) Blood Pressure 117/74 (02/16/2024 10:19) Pulse 64 (02/16/2024 10:19) Respiration 19 (02/16/2024 10:19) Pain 4 (10/18/2023 10:01) BMI BMI: 28.4 Weight 192 lb [87.09 kg] (02/16/2024 10:19) Pulse Oximetry 98% (02/16/2024 10:19) Review of Systems: CONSTITUTIONAL: No fever, no loss of appetite ENT: No sore throat, no cough CARDIOVASCULAR: No chest pain, no palpitations RESPIRATORY: No SOB, no wheezing GASTROINTESTINAL: No abd pain, no N/V/D, no change in stool EXAMINATION General: Well-appearing gentleman in no obvious distress. Mental Status: Alert and oriented x 3 Head: Normocephalic. Eyes: Anicteric sclerae. Conjunctivae noninjected. Neuro: Normal speech/vet has soft speech/ sometimes difficult to hear which is his baseline & gait DATA REVIEW >> MEDICATIONS Reviewed Today (VA & Non VA) ALLERGIES: TRAMADOL, LACTOSE, FOOD PRESERVATIVES Active Outpatient Medications (including Supplies): Issue Date Status Last Fill Active Outpatient Medications Refills Expiration 1) BISOPROLOL FUMARATE 5MG TAB Qty: 90 for ACTIVE Issu:09-20-23 90 days Sig: TAKE ONE TABLET BY MOUTH Refills: 1 Last:04-14-24 ONCE DAILY FOR HIGH BLOOD PRESSURE Expr:09-20-24 2) CETIRIZINE HCL 10MG TAB Qty: 90 for 90 ACTIVE Issu:09-20-23 days Sig: TAKE ONE TABLET BY MOUTH Refills: 1 Last:04-09-24 ONCE DAILY FOR ALLERGIES Expr:09-20-24 3) EPINEPHRINE (EQV-EPI-PEN) 0.3MG/0.3ML ACTIVE Issu:09-20-23 Qty: 2 for 90 days Sig: INJECT Refills: 1 Last:01-09-24 DIRECTED INTRAMUSCULARLY ONE TIME FOR Expr:09-20-24 LIFE THREATENING ALLERGIC REACTION 4) GABAPENTIN 300MG CAP Qty: 450 for 90 ACTIVE Issu:09-20-23 days Sig: TAKE TWO CAPSULES BY MOUTH Refills: 1 Last:04-14-24 EVERY MORNING AND TAKE ONE CAPSULE AT Expr:09-20-24 NOON AND TAKE TWO CAPSULES AT BEDTIME FOR NERVE PAIN 5) MELATONIN 5MG CAP/TAB Qty: 90 for 90 ACTIVE Issu:08-24-23 days Sig: TAKE ONE CAPSULE/TABLET BY Refills: 0 Last:01-09-24 MOUTH AT BEDTIME NEEDED FOR Expr:08-24-24 INSOMNIA 6) PRAZOSIN HCL 2MG CAP Qty: 270 for 90 ACTIVE Issu:02-16-24 days Sig: TAKE THREE CAPSULES BY Refills: 3 Last:05-12-24 MOUTH AT BEDTIME PTSD Expr:02-16-25 7) SIMVASTATIN 40MG TAB Qty: 45 for 90 ACTIVE Issu:09-20-23 days Sig: TAKE ONE-HALF TABLET BY Refills: 1 Last:04-14-24 MOUTH ONCE DAILY FOR CHOLESTEROL Expr:09-20-24 Start Date Active Non-VA Medications Refills Expiration 1) Non-VA EPINEPHRINE (EQV-EPI-PEN) ACTIVE 0.3MG/0.3ML Sig: DIRECTED INTRAMUSCULARLY 2) Non-VA MELATONIN 5MG CAP/TAB SiMG ACTIVE BY MOUTH AT BEDTIME 9 Total Medications >> LABS REVIEWED TODAY: CHEM 7 TREND LAB CUMULATIVE SELECTED Collection DT Spec GLUCOSE BUN CREATIN Sodium K+/Pot CL CO2 10/18/2023 10:37 [place] 98 17 0.86 143 4.1 107 27 02/15/2023 11:30 SER[place] 95 11 0.96 139 3.8 102 27 02/05/2022 15:05 SERUM 97 10 0.86 139 4.2 106 26 08/28/2021 08:39 SERUM 106 H 18 1.04 140 3.4 L 100 30 03/26/2021 12:01 SER[place] 95 12 0.94 140 4.0 101 29 LAB CUMULATIVE SELECTED 2 No selection items chosen for this component. CHEM 7 Results Collection DT Spec Sodium K+/Pot CL CO2 GLUCOSE BUN 10/18/2023 10:37 [facility] 143 4.1 107 27 98 17 02/15/2023 11:30 SERUM 139 3.8 102 27 95 11 02/05/2022 15:05 SERUM 139 4.2 106 26 97 10 08/28/2021 08:39 SERUM 140 3.4 L 100 30 106 H 18 03/26/2021 12:01 SERUM 140 4.0 101 29 95 12 2020 10:25 [facility] 144 4.1 105 30 89 18 05/08/2019 10:52 [facility] 141 3.8 103 29 93 14 08/18/2018 12:14 SERUM 144 4.2 106 27 89 15 07/16/2017 11:04 SER[place] 142 4.0 106 30 90 13 CBC TREND Collection DT Spec WBC RBC HGB HCT MCV MCH PLT 10/18/2023 10:37 BLOOD 6.54 5.25 15.4 46.3 88.2 29.3 141 02/15/2023 11:30 BLOOD 8.00 5.62 16.2 49.5 88.1 28.8 161 06/03/2022 09:36 BLOOD 6.31 5.54 16.3 48.8 88.1 29.4 176 02/05/2022 15:05 BLOOD 4.58 4.64 13.8 41.7 89.9 29.7 136 L 08/28/2021 08:39 BLOOD 6.75 5.08 15.1 45.4 89.4 29.7 141 HEMOGLOBIN A1C TREND Collection DT Spec HGBA1c 10/18/2023 10:37 BLOOD 5.1 02/15/2023 11:30 BLOOD 5.1 02/05/2022 15:05 BLOOD 5.2 2020 10:25 BLOOD 5.2 02/28/2019 12:21 BLOOD 5.1 LIPID PANEL TREND Collection DT Spec CHOL HDL CHO/HDL LDL-d LDL-c TRIG 10/18/2023 10:37 [place] 137 30 L 4.6 70 184 H 02/15/2023 11:30 [place] 173 29 L 6.0 86 290 H 2022 09:55 [place] 179 28 L 6.4 99 Reflex to dLDL 304 H 02/05/2022 15:05 [place] 160 27 L 5.9 92 207 H 08/28/2021 08:39 [place] 158 28 L 5.6 83 235 H UREA NITROGEN 10/18/23 10:37 17 CREATININE-EGFR 10/18/23 10:37 0.86 LIVER PANEL TREND Collection DT Spec AST ALT T BILI ALK SAMAN T. PROT ALBUMIN 10/18/2023 10:37 SER[place] 21 20 0.4 84 7.0 4.0 02/15/2023 11:30 SERUM 20 24 0.4 94 7.9 4.3 02/05/2022 15:05 SERUM 25 26 0.3 75 7.2 4.1 2020 10:25 SERUM 25 32 0.4 87 7.5 4.1 05/08/2019 10:52 SERUM 21 25 0.3 82 7.3 4.1 PSA TREND Collection DT Spec PSA SR- 2022 09:55 SERUM 2.10 Collection DT Spec TSH 10/18/2023 10:37 SERUM 2.57 ANEMIA PANEL TREND Collection DT Spec B12 SR- HCT Ferrit IRON TIBC 10/18/2023 10:37 BLOOD 46.3 02/15/2023 11:30 BLOOD 49.5 06/03/2022 09:36 BLOOD 48.8 06/03/2022 09:36 SER[place] 120 117 348 02/05/2022 15:05 BLOOD 41.7 PT INR TREND No data available >> HEALTH MAINTENANCE PREVENTIVE MEDICINE GOALS Info Only: VA Video Connect Capable DUE NOW Advance Directive Screen MH AD Apr 30,24 BMI>30/>24.99 High Risk Dec 28,22 Colonoscopy GAP Reminder DUE NOW Hepatitis B Serology/Immunization DUE NOW Mental Health Treatment Plan DUE NOW Tobacco Use Screening May 17 Influenza Immunization DUE NOW Medication Reconciliation DUE NOW Alcohol Use Screen (AUDIT-C) May 17 COVID-19 Immunization DUE NOW Herpes Zoster (Shingles) Vaccine Feb 25 Sexual Orientation May 17 RHS Screen DUE NOW (Optional) Whole Health Documentation DUE NOW ASSESSMENT/PLAN: 1. Headache 2. PTSD Plan 1. refer [facility] eval/ vet prefers phone visit if possible 2. he also is hoping to start botox per Dr Lara if this is option 3. consider supplements such as magnesium 4. continue mental health care / and will need med mgmt 5. vet given note as below to try to assist him w/ goal of [employer] retirment: or sherman [phone]. letter given to vet on VA letterhead/ this is under my care and has a great deal of stress trying to cope with his shelter from [employer]. He has [place] adjustment disorder and diagnosed with PTSD by [place] psychiatry in 2021. He also has multiple other comorbid issues. Please assist with [employer] shelter. It is my opinion he is unfit for duty . LAB ORDERS FOR NEXT APPT. spent in patient care and education No barriers; Patient understands and agrees to current treatment plan. If pt has any questions, concerns, or changes in current health status he/she will call or come in to the VA. Medication Reconciliation: Outpatient: Has the patient been taking medications as documented in the EMLR? YES: The patient has been taking medications as documented in the EMLR. Essential Medication List for Review used to complete this medication reconciliation. INCLUDED IN THIS LIST: Alphabetical list of active outpatient prescriptions dispensed from this VA (local) and dispensed from another VA or DoD facility (remote) as well as inpatient orders (local, pending and active), local clinic medications, locally documented non-VA medications, and local prescriptions that have or been discontinued in the past 90 days. - All changes in medications, including all non-VA/Herbal/OTC medications were entered into CPRS. - If there were any medications the patient should no longer take, they were discontinued. - The patient/caregiver was instructed to update this list, discard old lists, and take this list to the next appointment, whether with a VA or non-VA provider. /ankit/ HIREN TUTTLE MD PHYSICIAN Signed: 05/24/2024 12:32 LENKA TUTTLE [facility]
--- OUTSIDE RECORDS SUMMARY | 2024-08-31 19:54 | XMS_ITS | Encounter Summary ---
Author Name [facility] [place] [facility] [place] [facility] [place] [facility] [place] Address [address] [place] [address] Care Team Providers Care Plant Etiologist Name Role Phone HIREN TUTTLE Primary Care [...] STAND JORGITO Jul 19, 2019 MEDICAI D [id number] RAYMONDBraxton CHEN PATIENT MEDICAID MEDICAID MEDIC AID Jul 19, 2015 DO NOT BILL [id number] ANDRADEBraxton PATIENT Selected Encounter This section includes the information on record at [place] for the Encounter. Date/Time Encounter Type Encounter Description Reason Provider Source Jul 25, 2024 11:30 AM PSYTX W PT 45 MINUTES [facility] - IND ICD-10-CM F33.1 Major depressive disorder, recurrent, moderate MARCELLA OSORIO Encounter Template Text not used by [facility] Assessments - Encounter Diagnoses This section includes the primary and secondary diagnoses documented for the Encounter. Date/Time Primary/Secondary Diagnosis Diagnosis Name Provider Source Jul 25, 2024 02:38 PM PRIMARY Major depressive disorder, recurrent, moderate DEVONMARCELLA [facility] Plan of Treatment: Future Appointments (+ 6 months) and Future Tests (+/- 45 days) The Plan of Treatment section includes future care activities for the patient [facility] [place] [facility] This section includes future appointments and future orders which are active, pending or scheduled. Future Appointments This section includes appointments that were scheduled to occur 6 months from the date of the Encounter, up to a maximum of 20 appointments. The data comes from all [facility]. Appointment Date/Time Appointment Type Appointme nt Facility Name Aug 08, 2024 10:00 AM [facility] Aug 15, 2024 01:00 PM [facility] Aug 15, 2024 01[facility]00 PM [facility] Sep 05[facility] 2024 10:00 AM [facility] Sep 14, 2024 09:30 AM AMBULATORY - MEDICINE [facility] Sep 19, 2024 10:00 AM [facility] November 29, 2024 10:00 AM AMBULATORY - MEDICINE [facility] Jan 03, 2025 01:00 PM [facility] Active, Pending, and Scheduled Orders This section includes a listing of several types of active, pending, and scheduled orders, including clinic medications orders, diagnostic test orders, procedure orders and consult orders; where the start date of the order is 45 days before the date of the Encounter or 45 days after the date of theEncounter. The data comes from all [facility]. Test Date/Time Test Type Test Details Facility Name Aug 26, 2024 09:41 AM Consult Order [facility]-MRI Cons [facility] Social History: Smoking Status (Most current) and Tobacco Use (All prior to encounter date) This section includes the most current, and the historical, smoking and tobacco- related health factors from the [place] facility where the Encounter took place. Current Smoking Status This section includes the most current smoking, or tobacco-related health factor, from the [place] facility where the Encounter took place. Date/Time Current Smoking Status Comment Krishan mike May 24, 2024 11:00 AM [facility] [place] [facility] Tobacco Use History This section includes a history of the smoking, or tobacco-related health factors, that were collected on or before the date of the Encounter. The data comes from the [place] facility where the Encounter took place. Date/Time Smoking Status/Tobacco Use Comment F acility May 17, 2023 11:30 AM VA-TOBACCO NEVER USED [place] [facility] [place] [facility] Mar 26, 2021 11:00 AM VA-TOBACCO NEVER USED [facility] [place] [facility] Apr 16, 2020 09:00 AM VA-TOBACCO NEVER USED [facility] [place] [facility] Jan 10, 2019 11:57 AM VA-TOBACCO NEVER USED [facility] [place] [facility] Mar 31, 2018 03:49 PM LIFETIME NON-TOBACCO USER [facility] [place] [facility] Mar 08, 2017 02:54 PM LIFETIME NON-TOBACCO USER [facility] [place] [facility] Encounter Notes: All associated encounter notes This section contains the clinical notes associated to the Encounter. Date/Time Encounter Note(s) Provider Source Jul 25, 2024 12:09 PM PSYCHOLOGY NOTE: LOCAL TITLE: PSYCHOLOGY NOTE STANDARD TITLE: PSYCHOLOGY NOTE DATE OF NOTE: JUL 25, 2024@12:09 ENTRY DATE: JUL 25, 2024@12:09:07 AUTHOR: MARCELLA OSORIO COSIGNER: URGENCY: STATUS: COMPLETED Date of session: Jul Duration of session: 30 Diagnosis: Depression Presenting Problem ([place] report): I think this year may go better than last . 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 He hasn't formally accepted, but thinks he may, as it would mean working with his son, and generally with an age group he particularly likes. 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 Course of Session: Feels ready to go back to work on the , when the new semsester begins. Headaches continue, and a neurology elena't was cancelled, but R/S for the end of the month: It's not that bad, just won't go away. Went to a libertarian with his colleagues at the [employer], and enjoyed himself: we haven't done anything like that in a long time. Specific mental health/clinical interventions: Monitor for return of symptoms; support growth and improvement. Mental Status/Clinical Impression: 1. Appearance (grooming, attire, apparent age) within normal limits: delusions): Yes 2. Thought content was organized and goal directed: Yes 3. Speech was coherent and unimpaired: Yes 4. Affect was appropriate and unremarkable: Presents with strength and opimism 5. Demeanor was calm, with no signs of agitation or restlessness: Yes 6. Problems with sleep or appetite reported: Not discussed 7. Psychosis (hallucinations or Delusions: No Client's response to interventions: Plans, next steps, and/or clinical decisions: Date of next planned contact: /ankit/ MARCELLA OSORIO, PhD Clinical Psychologist Signed: 07/25/2024 14:38 MARCELLA OSORIO [facility]
--- OUTSIDE RECORDS SUMMARY | 2024-08-31 19:54 | XMS_ITS ---
Author Name [facility] [place] Organization [facility] [place] [place] Address [address] [place] [address] Care Team Providers Care Sales And Merchandising Representative Name Role Phone HIREN TUTTLE Primary Care [...] STAND JORGITO Jul 19, 2019 MEDICAI D [id number] Braxton ANDRADE PATIENT MEDICAID MEDICAID MEDIC AID Jul 19, 2015 DO NOT BILL [id number] Braxton ANDRADE PATIENT Selected Encounter This section includes the information on record at [place] for the Encounter. Date/Time Encounter Type Encounter Description Reason Pro vider Source Jul 05, 2024 08:30 AM Outpatient Encounter [facility] Encounter Template Text not used by [place] Plan of Treatment: Future Appointments (+ 6 [...] 20 appointments. The data comes from all [place] treatment facilities. Appointment Date/Time Appointment Type Appointme nt Facility Name Jul 06, 2024 11:00 AM AM[facility] [place] [facility] Jul 25, 2024 11:30 AM AMBULATORY - [facility]CHIATRY [facility] [place] [facility] Aug 08, 2024 10:00 AM AMBULATORY - PS[facility]CHIATRY [facility] [place] [facility] Aug 15, 2024 01:00 PM AMBULATORY - NEUROLOGY [facility] [place] [facility] Aug 15, 2024 01:00 PM AMBULATORY - [facility]UROLOGY [facility] Sep 05, 2024 10:00 AM AMBULATORY - PSYCHIATRY [facility] [place] [facility] Sep 14, 2024 09:30 AM AMBULATORY - MEDICINE [facility] [place] [facility] Sep 19, 2024 10:00 AM AMBULATORY - PSYCHIATRY [facility] [place] [facility] November 29, 2024 10:00 AM AMBULATORY - MEDICINE [facility] [place] [facility] Jan 03, 2025 01:00 PM AMBULATORY - MEDICINE [facility] [place] [facility] Social History: Smoking Status (Most current) and Tobacco Use (All prior to encounter date) This section includes the most current, and the historical, smoking and tobacco- related health factors from the [place] facility where the Encounter took place. Current Smoking Status This section includes the most current smoking, or tobacco-related health factor, from the [place] facility where the Encounter took place. Date/Time Current Smoking Status Comment Facil ity May 24, 2024 11:00 AM VA-TOBACCO NEVER USED [place] [facility] [place] [facility] Tobacco Use History This section includes a history of the smoking, or tobacco-related health factors, that were collected on or before the date of the Encounter. The data comes from the [place] facility where the Encounter took place. Date/Time Smoking Status/Tobacco Use Comment F acility May 17, 2023 11:30 AM VA-TOBACCO NEVER USED [facility] [place] [facility] Mar 26, 2021 11:00 AM VA-TOBACCO NEVER USED [facility] [place] [facility] Apr 16, 2020 09:00 AM VA-TOBACCO NEVER USED [facility] [place] [facility] Jan 10, 2019 11:57 AM VA-TOBACCO NEVER USED [facility] [place] [facility] Mar 31, 2018 03:49 PM LIFETIME NON-TOBACCO USER [facility] [place] [facility] Mar 08, 2017 02:54 PM LIFETIME NON-TOBACCO USER [facility] [place] [facility] Encounter Notes: All associated encounter notes This section contains the clinical notes associated to the Encounter. Date/Time Encounter Note(s) Provider Source Jul 05, 2024 08:47 AM CLERICAL NOTE: LOCAL TITLE: APPOINTMENT NO SHOW STANDARD TITLE: CLERICAL NOTE DATE OF NOTE: JUL 05, 2024@08:47 ENTRY DATE: JUL 05, 2024@08:47:12 AUTHOR: KINGS HARRIS COSIGNER: URGENCY: STATUS: COMPLETED Patient Name: NAV ANDRADE Patient SSN: [id number] Date and time of Appointment No show : 07/05/24 08:30 PATIENT PHONE - PHONE NUMBER [CELLULAR] - Patient's medical record was reviewed. Follow-up actions were determined and initiated: Please check/complete as applies: [X]Telephoned Directly [ ]Re-scheduled for next available appt [X]Sent a N0-show letter ( must call for appointment) [ ]Other (Emergent/Overbook, etc.): Additional Comments: Vet was not present for 0830 F2F appt. called, to which the vet did not respond. vague VM left to return call at [phone]. no-show letter to be sent for rescheduling purposes. Future Clinic Visits 07/06/2024 11:00 CWM/NO/MHC/COOK 07/11/2024 14:00 CWM V01 EMILY KNIGHT 02 ADMIN 07/25/2024 11:30 CWM/NO/MHC/COOK 08/08/2024 10:00 CWM/NO/MHC/COOK 08/22/2024 10:00 CWM/NO/MHC/COOK 09/05/2024 10:00 CWM/NO/MHC/COOK 09/19/2024 10:00 CWM/NO/MHC/COOK 11/29/2024 10:00 CWM/NO/PACT 4 01/03/2025 13:00 NHM/OPTOMETRY/BLANCA/ /es/ Kings Harris PharmD Clinical Pharmacist Practitioner Signed: 07/05/2024 08:48 Receipt Acknowledged By: 07/05/2024 14:12 /ankit/ [employer] GRADER KINGS HARRIS [facility]
--- OUTSIDE RECORDS SUMMARY | 2024-08-31 19:54 | XMS_ITS ---
Author Name [facility] [place] [facility] [place] [place] Address [address] [place] [address] Care Team Providers Care Pinmaker Name Role Phone HIREN TUTTLE Primary Care [...] STAND JORGITO Jul 19, 2019 MEDICAI D [id number] ANDRADEBraxton CHEN PATIENT MEDICAID MEDICAID MEDIC AID Jul 19, 2015 DO NOT BILL [id number] RAYMONDBraxton CHEN PATIENT Selected Encounter This section includes the information on record at [place] for the Encounter. Date/Time Encounter Type Encounter Description Reason Provider Source May 26, 2024 01:00 PM MTMS BY PHARM ADDL 15 [facility] - IND ICD-10-CM F33.1 Major depressive disorder, recurrent, moderate RAGUINDIN,JASP ER JAMEE D IHE Encounter Template Text not used by [facility] Assessments - Encounter Diagnoses This section includes the primary and secondary diagnoses documented for the Encounter. Date/Time Primary/Secondary Diagnosis Diagnosis Name Provider Source May 26, 2024 01:47 PM PRIMARY Major depressive disorder, recurrent, moderate RAGSEVEN,JASP ER JAMEE D [place] [facility] [place] [facility] Plan of Treatment: Future Appointments (+ 6 months) and Future Tests (+/- 45 days) The Plan of Treatment section includes future care activities for the patient from all [place] treatmentfacilities. This section includes future appointments and future orders which are active, pending or scheduled. Future Appointments This section includes appointments that were scheduled to occur 6 months from the date of the Encounter, up to a maximum of 20 appointments. The data comes from all [place] treatment facilities. Appointment Date/Time Appointment Type Appointme nt Facility Name Jun 20, 2024 09:30 AM AMBULATORY - PSYCHIATRY [facility] [place] [facility] Jun 23, 2024 02:00 PM AMBULATORY - PS[facility]IATRY [facility] [place] [facility] Jul 05, 2024 08:30 AM AMBULATORY - PS[facility]IATRY [facility] [place] [facility] Jul 06, 2024 11:00 AM AMBULATORY [facility] PS[facility]IATRY [facility] [place] [facility] Jul 25, 2024 11:30 AM AMBULATORY [facility] PS[facility]IATRY [facility] [place] [facility] Aug 08, 2024 10:00 AM AMBULATORY [facility] PS[facility]IATRY [facility] [place] [facility] Aug 15, 2024 01:00 PM AMBULATORY - NEUROLOGY [facility] [place] [facility] Aug 15, 2024 01:00 PM AMBULATORY - NEUROLOGY [facility] Sep 05, 2024 10:00 AM AMBULATORY - PS[facility]CHIATRY [facility] [place] [facility] Sep 14, 2024 09:30 AM AMBULATORY [facility] MEDICINE [facility] [place] [facility] Sep 19, 2024 10:00 AM AMBULATORY [place]ATRY [place] [facility] [place] [facility] Lab Results: +/- 30 days of the encounter This section includes the Chemistry and Hematology Lab Results on record with [place] for the patient. Radiology Reports and Pathology Reports are provided separately, in subsequent sections. Lab Results This section contains the Chemistry/Hematology Results that were resulted 30 days before or 30 daysafter the date of the Encounter. Date/Time Source Result Type Result - Unit Interpretation Reference Range Comment May 24, 2024 12:16 PM [facility] [place] [facility] TSH Specimen Type: SERUM No comment entered. Ordering Provider: HIREN TUTTLE Report Released Date/Time: May 24, 2024 11:32 AM Reporting Lab: [address] [phone] Performing Lab: [address] [phone] TSH 1.52 u[IU]/mL 0.35-5.00 May 24, 2024 12:16 PM [facility] LIVER FUNCTION Specimen Type: SERUM No comment entered. Ordering Provider: HIREN TUTTLE Report Released Date/Time: May 24, 2024 11:32 AM Reporting Lab: [address] [phone] Performing Lab: [address] [address] PROTEIN,TOTAL 6.8 g/dL 6.0-8.3 ALBUMIN 3.9 g/dL 3.5-5.0 ALKALINE PHOSPHATASE 80 U/L 40-150 AST 19 U/L 5-34 ALT 21 U/L BILIRUBIN, TOTAL 0.5 mg/dL 0.2-1.2 May 24, 2024 12:16 PM [facility] PSA Specimen Type: SERUM No comment entered. Ordering Provider: HIREN TUTTLE Report Released Date/Time: May 24, 2024 11:32 AM Reporting Lab: [address] [phone] Performing Lab: [address] [phone] PSA 2.42 ng/mL 0.00-4.00 May 24, 2024 12:16 PM [facility] URINALYSIS CLEAN CATCH Specimen Type: URINE Comment: If Glucose = >500 and Ketones are positive, please alert the Physician. Ordering Provider: HIREN TUTTLE Report Released Date/Time: May 24, 2024 11:32 AM Reporting Lab: [facility] [address] [address] Performing Lab: [facility] [address] [address] UA COLOR Light-Yellow Yellow UA APPEARANCE Clear Clear UA GLUCOSE Normal mg/dL Negative UA KETONES NEGATIVE mg/dL Negative UA BLOOD NEGATIVE mg/dL Negative UA PROTEIN NEGATIVE mg/dL Negative UA NITRITE NEGATIVE mg/dL Negative UA BILIRUBIN NEGATIVE mg/dL Negative UA SPECIFIC GRAVITY 1.023 H 1.016-1.022 UA pH 6.5 5.0-9.0 UA UROBILINOGEN Normal mg/dL <2.0 UA LEUKOCYTE NEGATIVE Negative May 24, 2024 12:16 PM [facility] BASIC METABOLIC PANEL (non-fasting) Specimen Type: SERUM No comment entered. Ordering Provider: HIREN TUTTLE Report Released Date/Time: May 24, 2024 11:32 AM Reporting Lab: [address] [address] Performing Lab: [address] [address] UREA NITROGEN 12 mg/dL 7-25 GLUCOSE 107 mg/dL H 65-100 SODIUM 139 mmol/L 135-145 POTASSIUM 4.2 mmol/L 3.5-5.0 CHLORIDE 104 mmol/L 100-110 CO2 25 meq/L 20-30 CREATININE, Serum 0.85 mg/dL 0.50-1.40 eGFR(CKD-EPI 2020) >90 mL/min >60 May 24, 2024 12:16 PM [facility] CBC AND DIFF (AUTO) Specimen Type: BLOOD No comment entered. Ordering Provider: HIREN TUTTLE Report Released Date/Time: May 24, 2024 11:32 AM Reporting Lab: [address] [phone] Performing Lab: [address] [address] WBC 5.72 10*3/uL 4.50-11.00 RBC 5.02 10*6/uL [...] and tobacco- related health factors from the [place] facility where the Encounter took place. Current Smoking Status This section includes the most current smoking, or tobacco-related health factor, from the [place] facility where the Encounter took place. Date/Time Current Smoking Status Comment Facil ity May 24, 2024 11:00 AM VA-TOBACCO NEVER USED [facility] Tobacco Use History This section includes a history of the smoking, or tobacco-related health factors, that were collected on or before the date of the Encounter. The data comes from the [place] facility where the Encounter took place. Date/Time Smoking Status/Tobacco Use Comment F acility May 17, 2023 11:30 AM VA-TOBACCO NEVER USED [facility] Mar 26, 2021 11:00 AM [facility] Apr 16, 2020 09:00 AM [facility]ACCO [facility] Jan 10, 2019 11:57 AM [facility]-TOBACCO NEVER [facility]ED [facility] Mar 31, 2018 03:49 PM LIFETIME NON-TOBACCO USER [facility] Mar 08, 2017 02:54 PM [facility]AC[facility] Pathology Reports: +/- 30 days of [...] the Encounter. The data comes from all [facility] facilities. Date/Time Pathology Report Provider Source May 24, 2024 12:16 PM LR MICROBIOLOGY RE [place]: Reporting Lab: [facility] [CLIA# [id number]] [address] [place] [id number] Accession [UID]: [id number] [[id number]] Received: May 24, 2024@12:16 Collection sample: URINE CLEAN CATCH Collection date: May 24, 2024 12:16 Site/Specimen: URINE Provider: HIREN TUTTLE Comment on specimen: cc Test(s) ordered: URINE CULTURE(MWROX).......... completed: May 30, 2024 07:58 * BACTERIOLOGY FINAL REPORT => May 30, 2024 07:58 TECH CODE: [id number] Bacteriology Remark(s): >10,000 - <25,000 CFU/ML MIXED GRAM POSITIVE MELISSA No further workup =--=--=--=--=--=--=--=-- =--=--=--=--=--=--=--=-- =--=--=--=--=--=--=--=-- =--=-- Performing Laboratory: Bacteriology Report Performed By: [facility] [CLIA# [id number]] [address] [place] [address] [facility] [place] [facility] [place] [facility] Encounter Notes: All associated encounter notes This section contains the clinical notes associated to the Encounter. Date/Time Encounter Note(s) Provider Source May 26, 2024 01:10 PM MENTAL HEALTH CONSULT: LOCAL TITLE: MENTAL HEALTH CONSULT NOTE STANDARD TITLE: MENTAL HEALTH CONSULT DATE OF NOTE: MAY 26, 2024@13:10 ENTRY DATE: MAY 26, 2024@13:10:58 AUTHOR: KINGS HARRIS COSIGNER: URGENCY: STATUS: COMPLETED Program: Clinical Pharmacy Provider/Medication Management Speciality: Mental Health ATTENDED BY: [X] Patient [X] Spouse/Caregiver: Javier LENGTH OF SESSION: 60minutes -=-=-=-=-=-=-=-=-=-=-=-=-= -=-=-=-=-=-=-==-=-=-=-=-=- =-=-=-=-=-=-=-=-=-=-=-=-=- =- Name: NAV ANDRADE : Sep ID: 58yo WHITE MALE -=-=-=-=-=-=-=-=-=-=-=-=-= -=-=-=-=-=-=-==-=-=-=-=-=- =-=-=-=-=-=-=-=-=Subjectiv e- Treating Dx(s): MDD Interview Summary: pt w/ CC of I have been having issues for the past couple of weeks. appt was joined by MARIELA Herrera, who provided insight to the pt's wellbeing. noted that SO is congolese-speaking to which the pt did translate. both explain the the pt has not been to work for the last two weeks, avoiding phone calls and text messages, and isolating, to which he states I don't talk to anybody and only leave the house if I have. expressed a stronge sense of betrayal from the [employer], stating everytime I get mail from them, I feel a rage inside of me. 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 SO expressed concern about excessive spending, but then when he needs something, he cannot find it and will buy it again. expressed collecting tools, books, antiques, stating maybe he's tryin to fill a void. endorsed having a strong support system from family and friends; noted that even his coworkers had been worried and occasionally stopped by the home. reports of I want to get back to work. medications reviewed. noted that pt during this time has not been adherent to taking his medications, and specifically his bupropion, despite his SO helping. discussed that this is likely contributing to his current mood. additionally, pt reporting concern for frequent nightmares. discussed trialing an increase in dose of prazosin, which adds to his distress. medication education provided, to which the pt provided verbal understanding and agreed to the trial. Mood: as stated above Sleep: sleeping late, getting nightmares Apetite: poor [place] reports the following regarding medications: -N--Y- [X][ ] Adherence/Compliance [X][ ] Adverse Drug Reactions [ ][ ] New OTC/Herbal/Supplement(s) SUBSTANCE USE ASSESSMENT [X] Denies All [ ] Nicotine [ ] Caffeine [ ] Alcohol [ ] Cannabis [ ] Other Illicit Substances __ -=-=-=-=-=-=-=-=-=-=-=-=-= -=-=-=-=-=-=-==-=-=-=-=-=- =-=-=-=-=-=-=-=-=-Objectiv e- Mental Status Exam Appearance: [X] Unremarkable [X] Appropriate to season [ ] Neatly groomed [ ] Somewhat disheveled [ ] Other: Behavior Mood/Affect: [X] Appropriate [ ] Irritable [X] Normal [ ] Euphoric [ ] Pleasant [ ] Provocative [ ] Bright [ ] Depressed [ ] Anxious [ ] Frustrated [ ] Anxious [ ] Frustrated [ ] Maintained good eye contact [ ] Restricted [ ] Flat [ ] Other: [ ] Subdued [ ] Unremarkable [ ] Responsive & Congruent w/mood Energy: [ ] Other: [X] Normal [ ] Excessive [ ] Lethargic [ ] Variable Sleep: [ ] Other: [X] Normal [ ] Early awakening [ ] Sleep onset insomnia -N--Y- Orientation to: [ ] Frequent disruption [ ][X] Person [ ][X] Place Speech: [ ][X] Time [X] Normal [ ] Rapid [ ] Loud [ ] Flat [ ] Slow [ ] Soft Stream of thought: [ ] Other: [X] Normal [ ] Confused [ ] Tangential [ ] Derailed Insight/Judgment: [ ] Vague [ ] Repetitive [X] Normal [ ] Impaired [ ] No evidence of thought disorder [ ] No overt psychosis Other cognitive problems: [ ] Denies Flashbacks [X] Cognition intact [ ] Denies AH/VH [X] Logical and Linear [ ] Obsessions [ ] Paranoid/Delusions [X] Memory sufficient for interview [ ] Hallucinations: [ ] None [ ] Visuospatial [ ] Flashbacks: [ ] Attention [ ] Judgment [ ] Other: [ ] Abstraction __ Active problems - Computerized Problem List is the source for the followin. Daytime somnolence 2. Speech problem 3. GERD - Gastro-Esophageal Reflux Disease ([facility] [id number]) 4. Treadmill stress test negative for angina pectoris 5. Carpal tunnel 6. Tremor 7. Chronic Post-Traumatic Stress Disorder Following Combat ([facility] [id number] 8. Sleep Apnea ([facility] [id number]) 9. Headache 10. Painful arms and moving [...] hands 24. Anaphylactic reaction 25. Major depression __ ALLERGIES: TRAMADOL, LACTOSE, FOOD PRESERVATIVES Active Outpatient Medications (including Supplies): Active Outpatient Medications Status 1) BISOPROLOL FUMARATE 5MG TAB TAKE ONE TABLET BY MOUTH ACTIVE ONCE DAILY FOR HIGH BLOOD PRESSURE 2) CETIRIZINE HCL 10MG TAB TAKE ONE TABLET BY MOUTH ONCE ACTIVE DAILY FOR ALLERGIES 3) EPINEPHRINE (EQV-EPI-PEN) 0.3MG/0.3ML INJECT ACTIVE DIRECTED INTRAMUSCULARLY ONE TIME FOR LIFE THREATENING ALLERGIC REACTION 4) GABAPENTIN 300MG CAP TAKE TWO CAPSULES BY MOUTH EVERY ACTIVE MORNING AND TAKE ONE CAPSULE AT NOON AND TAKE TWO CAPSULES AT BEDTIME FOR NERVE PAIN 5) MELATONIN 5MG CAP/TAB TAKE ONE CAPSULE/TABLET BY ACTIVE MOUTH AT BEDTIME NEEDED FOR INSOMNIA 6) PRAZOSIN HCL 2MG CAP TAKE THREE CAPSULES BY MOUTH AT ACTIVE BEDTIME PTSD 7) SIMVASTATIN 40MG TAB TAKE ONE-HALF TABLET BY MOUTH ACTIVE ONCE DAILY FOR CHOLESTEROL Active Non-VA Medications Status 1) Non-VA EPINEPHRINE (EQV-EPI-PEN) 0.3MG/0.3ML ACTIVE DIRECTED INTRAMUSCULARLY 2) Non-VA MELATONIN 5MG CAP/TAB 10MG BY MOUTH AT BEDTIME ACTIVE 9 Total Medications Past psychiatric medications include the following: [X] Per CPRS: - amitriptyline (2018, for KAT) - bupropion (2018-current) - melatonin (2016-current) - nortiptyline (2021, for KAT) - prazosin (2023-current) - sertraline (2013; 2016-current) - trazodone (2016-current) [ ] Per Patient: __ Vitals: Ht: 69 in [175.3 cm] (06/03/2022 08:43) Wt: 191 lb [86.64 kg] (05/24/2024 11:11) BMI: 28.3 BP: 120/73 (05/24/2024 11:11) HR: 61 (05/24/2024 11:11) Labs: CHEM 7 TREND LAB CUMULATIVE SELECTED Collection DT Spec GLUCOSE BUN CREATIN Sodium K+/Pot CL CO2 05/24/2024 12:16 SERUM 107 H 12 0.85 139 4.2 104 25 10/18/2023 10:37 SERUM 98 17 0.86 143 4.1 107 27 02/15/2023 11:30 SERUM 95 11 0.96 139 3.8 102 27 02/05/2022 15:05 SERUM 97 10 0.86 139 4.2 106 26 08/28/2021 08:39 SERUM 106 H 18 1.04 140 3.4 L 100 30 LIVER PANEL TREND Collection DT Spec AST ALT T BILI ALK SAMAN T. PROT ALBUMIN 05/24/2024 12:16 SERUM 19 21 0.5 80 6.8 3.9 10/18/2023 10:37 SERUM 21 20 0.4 84 7.0 4.0 02/15/2023 11:30 SERUM 20 24 0.4 94 7.9 4.3 02/05/2022 15:05 SERUM 25 26 0.3 75 7.2 4.1 2020 10:25 SERUM 25 32 0.4 87 7.5 4.1 CBC TREND Collection DT Spec WBC RBC HGB HCT MCV MCH PLT 05/24/2024 12:16 BLOOD 5.72 5.02 14.8 43.9 87.5 29.5 123 L 10/18/2023 10:37 BLOOD 6.54 5.25 15.4 46.3 88.2 29.3 141 02/15/2023 11:30 BLOOD 8.00 5.62 16.2 49.5 88.1 28.8 161 06/03/2022 09:36 BLOOD 6.31 5.54 16.3 48.8 88.1 29.4 176 02/05/2022 15:05 BLOOD 4.58 4.64 13.8 41.7 89.9 29.7 136 L LIPID PANEL TREND Collection DT Spec CHOL [...] 158 28 L 5.6 83 235 H HEMOGLOBIN A1C TREND Collection DT Spec HGBA1c 10/18/2023 10:37 BLOOD 5.1 02/15/2023 11:30 BLOOD 5.1 02/05/2022 15:05 BLOOD 5.2 2020 10:25 BLOOD 5.2 02/28/2019 12:21 BLOOD 5.1 EK QTc = 452ms, NSR Estimated CrCl (based on IBW): ~94mL/min -=-=-=-=-=-=-=-=-=-=-=-=-= -=-=-=-=-=-=-==-=-=-=-=-=- =-=-=-=-=-=-=-=-=-=-=-=-=- =- ASSESSMENT The following review of all active psychotropic and HOME CARE ATTENDANT-active agents is to ensure pharmacotherapy is evaluated for safety and efficacy as they relate to behaviorial and physiological changes and outcomes Pt endorsed nonadherence, specifically to bupropion. will defer making changes to antidepressants pt works on adherence MDD - sertraline 200mg daily - bupropion 24hr SA 150mg daily - prazosin 6mg hs > tolerating, will titrate to effect - trazodone 150mg hs - melatonin 5mg hs prn insomnia PLAN 1. Pharmacotherapy [ ] No changes [ ] Discontinue: [ ] Initiate: [X] Change the following: increase prazosin to 8mg hs 2. Labs/tests: n/a 3. Consult(s) or Coordination of care: n/a 4. Other: n/a Education was provided to the regarding the above medication(s) risks, benefits, and alternatives; adverse drug reactions; expectations; and instructions for use. Findings/Plan was discussed with the patient and/or caregiver(s) whom provided verbal acknowledgement that the findings/plan was understood. The following counseling was specifically provided: [ ] Lab tests reviewed with patient [X] Instruction for management/treatment and/or follow-up [X] Importance of compliance with chosen treatment options [X] Risk Factor Reduction [ ] Other: RTC Interval: every 4weeks Next Apt: [id number]@1400 was provided commercial underwriter's contact information and instructed to contact commercial underwriter as needed for any changes to scheduling or concerns otherwise. [place] is aware of actions to take if they feel unsafe, including calling the 's Crisis Line (#[phone]); calling 911; or going to the nearest urgent care or emergency room. The is also aware of how to contact the clinic should the require additional services prior to the next appointment. Time spent on chart review, session, and documentation: 60minutes /es/ Kings Harris PharmD Clinical Pharmacist Practitioner Signed: 06/11/2024 20:59 KINGS HARRIS [place] [facility]
--- OUTSIDE RECORDS SUMMARY | 2024-08-31 19:54 | XMS_ITS ---
Author Name [facility] [place] Address [address] [place] [address] Care Team Providers Care Latex Ribbon Machine Operator Name Role Phone HIREN TUTTLE Primary [...] STAND JORGITO Jul 19, 2019 MEDICAI D [id number] ANDRADEBraxton CHEN PATIENT MEDICAID MEDICAID MEDIC AID Jul 19, 2015 DO NOT BILL [id number] RAYMONDBraxton CHEN PATIENT Selected Encounter This section includes the information on record at [place] for the Encounter. Date/Time Encounter Type Encounter Description Reason Provider Source May 09, 2024 10:00 AM PSYTX W PT 30 MINUTES [facility] - IND ICD-10-CM F43.12 Post-traumatic stress disorder, chronic MARCELLA OSORIO Encounter Template Text not used by [facility] Assessments - Encounter Diagnoses This section includes the primary and secondary diagnoses documented for the Encounter. Date/Time Primary/Secondary Diagnosis Diagnosis Name Provider Source May 10, 2024 08:49 AM PRIMARY Post-traumatic stress disorder, chronic MARCELLA OSORIO [facility] [place] [facility] May 10, 2024 08:49 AM SECONDARY activity MARCELLA OSORIO [place] [facility] [place] [facility] Plan of Treatment: Future Appointments (+ 6 months) and Future Tests (+/- 45 days) The Plan of Treatment section includes future care activities for the patient from all [place] [facility] This section includes future appointments and future orders which are active, pending or scheduled. Future Appointments This section includes appointments that were scheduled to occur 6 months from the date of the Encounter, up to a maximum of 20 appointments. The data comes from all [place] treatment facilities. Appointment Date/Time Appointment Type Appointme nt Facility Name May 23, 2024 10:00 AM AMBULATORY - PSYCHIATRY [facility] [place] [facility] May 24, 2024 11:00 AM AMBULATORY - MEDICINE [facility] [place] [facility] May 26, 2024 01:00 PM AMBULATORY - PSYCHIATRY [facility] [place] [facility] Jun 20, 2024 09:30 AM AMBULATORY - PSYCHIATRY [facility] [place] [facility] Jun 23, 2024 02:00 PM AMBULATORY - PSYCHIATRY [facility] [place] [facility] Jul 05, 2024 08:30 AM AMBULATORY - PSYCHIATRY [facility] [place] [facility] Jul 06, 2024 11:00 AM AMBULATORY - PSYCHIATRY [facility] [place] [facility] Jul 25, 2024 11:30 AM AMBULATORY - PSYCHIATRY [facility] [place] [facility] Aug 08, 2024 10:00 AM AMBULATORY - PSYCHIATRY [facility] [place] [facility] Aug 15, 2024 01:00 PM AMBULATORY - NEUROLOGY [facility] [place] [facility] Aug 15, 2024 01:00 PM AM[place]ULATORY - [place]OLOGY [place] [facility] Sep 05, 2024 10:00 AM AMBULATORY - PSYCHIATRY [facility] [place] [facility] Sep 14, 2024 09:30 AM AMBULATORY - MEDICINE [facility] [place] [facility] Sep 19, 2024 10:00 AM AMBULATORY - PSYCHIATRY [facility] [place] [facility] Lab Results: +/- 30 days of the encounter This section includes the Chemistry and Hematology Lab Results on record with [place] for the patient. Radiology Reports and Pathology Reports are provided separately, in subsequent sections. Lab Results This section contains the Chemistry/Hematology Results that were resulted 30 days before or 30 daysafter the date of the Encounter. Date/Time Source Result Type Result - Unit Interpretation Reference Range Comment May 24, 2024 12:16 PM [facility] TSH Specimen Type: SERUM No comment entered. Ordering Provider: HIREN TUTTLE Report Released Date/Time: May 24, 2024 11:32 AM Reporting Lab: [address] [id number] Performing Lab: [address] [address] TSH 1.52 u[IU]/mL 0.35-5.00 May 24, 2024 12:16 PM [facility] LIVER FUNCTION Specimen Type: SERUM No comment entered. Ordering Provider: HIREN TUTTLE Report Released Date/Time: May 24, 2024 11:32 AM Reporting Lab: [address] [address] [facility] [address] PROTEIN,TOTAL 6.8 g/dL 6.0-8.3 ALBUMIN 3.9 g/dL 3.5-5.0 ALKALINE PHOSPHATASE 80 U/L 40-150 AST 19 U/L 5-34 ALT 21 U/L BILIRUBIN, TOTAL 0.5 mg/dL 0.2-1.2 May 24, 2024 12:16 PM [facility] URINALYSIS CLEAN CATCH Specimen Type: URINE Comment: If Glucose = >500 and Ketones are positive, please alert the Physician. Ordering Provider: HIREN TUTTLE Report Released Date/Time: May 24, 2024 11:32 AM Reporting Lab: [address] [address] Performing Lab: [facility] [address] [address] UA COLOR Light-Yellow Yellow UA APPEARANCE Clear Clear UA GLUCOSE Normal mg/dL Negative UA KETONES NEGATIVE mg/dL Negative UA BLOOD NEGATIVE mg/dL Negative UA PROTEIN NEGATIVE mg/dL Negative UA NITRITE NEGATIVE mg/dL Negative UA BILIRUBIN NEGATIVE mg/dL Negative UA SPECIFIC GRAVITY 1.023 H 1.016-1.022 UA pH 6.5 5.0-9.0 UA UROBILINOGEN Normal mg/dL <2.0 UA LEUKOCYTE NEGATIVE Negative May 24, 2024 12:16 PM [facility] PSA Specimen Type: SERUM No comment entered. Ordering Provider: HIREN TUTTLE Report Released Date/Time: May 24, 2024 11:32 AM Reporting Lab: [address] [address] Performing Lab: [address] [address] PSA 2.42 ng/mL 0.00-4.00 May 24, 2024 12:16 PM [facility] BASIC METABOLIC PANEL (non-fasting) Specimen Type: SERUM No comment entered. Ordering Provider: HIREN TUTTLE Report Released Date/Time: May 24, 2024 11:32 AM Reporting Lab: [address] [address] Performing Lab: [address] [address] UREA NITROGEN 12 mg/dL 7-25 GLUCOSE 107 mg/dL H 65-100 SODIUM 139 mmol/L 135-145 POTASSIUM 4.2 mmol/L 3.5-5.0 CHLORIDE 104 mmol/L 100-110 CO2 25 meq/L 20-30 CREATININE, Serum 0.85 mg/dL 0.50-1.40 eGFR(CKD-EPI 2020) >90 mL/min >60 May 24, 2024 12:16 PM [facility] CBC AND DIFF (AUTO) Specimen Type: BLOOD No comment entered. Ordering Provider: HIREN TUTTLE Report Released Date/Time: May 24, 2024 11:32 AM Reporting Lab: [facility] [address] [facility] [address] Performing Lab: [facility] [address] [facility] [address] WBC 5.72 10*3/uL 4.50-11.00 RBC 5.02 10*6/uL [...] and tobacco- related health factors from the [place] facility where the Encounter took place. Current Smoking Status This section includes the most current smoking, or tobacco-related health factor, from the [place] facility where the Encounter took place. Date/Time Current Smoking Status Comment Facil ity May 17, 2023 11:30 AM VA-TOBACCO NEVER USED [facility] Tobacco Use History This section includes a history of the smoking, or tobacco-related health factors, that were collected on or before the date of the Encounter. The data comes from the [place] facility where the Encounter took place. Date/Time Smoking Status/Tobacco Use Comment F acility Mar 26, 2021 11:00 AM VA-TOBACCO NEVER USED [facility] Apr 16, 2020 09:00 AM VATOBACCO NEVER USED [facility] Jan 10, 2019 11:57 AM [facility] Mar 31, 2018 03:49 PM LIFETIME NON-TOBACCO USER [facility] Mar 08, 2017 02:54 PM LIFETIME NON-TOBACCO USER [facility] Pathology Reports: +/- 30 days of [...] the Encounter. The data comes from all [facility] facilities. Date/Time Pathology Report Provider Source May 24, 2024 12:16 PM LR MICROBIOLOGY RE PORT: Reporting Lab: [facility] [CLIA# [id number]] [address] [place] [id number] Accession [UID]: [id number] [[id number]] Received: May 24, 2024@12:16 Collection sample: URINE CLEAN CATCH Collection date: May 24, 2024 12:16 Site/Specimen: URINE Provider: HIREN TUTTLE Comment on specimen: cc Test(s) ordered: URINE CULTURE(MWROX).......... completed: May 30, 2024 07:58 * BACTERIOLOGY FINAL REPORT => May 30, 2024 07:58 TECH CODE: [id number] Bacteriology Remark(s): >10,000 - <25,000 CFU/ML MIXED GRAM POSITIVE MELISSA No further workup =--=--=--=--=--=--=--=-- =--=--=--=--=--=--=--=-- =--=--=--=--=--=--=--=-- =--=-- Performing Laboratory: Bacteriology Report Performed By: [facility] [CLIA# [id number]] [address] [place] [address] [facility] [place] [facility] Encounter Notes: All associated encounter notes This section contains the clinical notes associated to the Encounter. Date/Time Encounter Note(s) Provider Source May 09, 2024 10:33 AM PSYCHOLOGY NOTE: LOCAL TITLE: PSYCHOLOGY NOTE STANDARD TITLE: PSYCHOLOGY NOTE DATE OF NOTE: MAY 09, 2024@10:33 ENTRY DATE: MAY 09, 2024@10:33:15 AUTHOR: MARCELLA OSORIO COSIGNER: URGENCY: STATUS: COMPLETED Date of session: Apr Duration of session: 30 Diagnosis: Depression Presenting Problem ([place] report): Continues to suffer from ongoing headache, although intensity is down to 3-4, had been, at times a 20! . Whether for this reason or because of some depression, isn't feelinjg like doing much. Isn't answering his phone, so nothing has happened with getting a medication appointment. He did stop by his primary care last time we met, but was told Dr. Melo had no availability to push up their elena't which isn't until August. He appaarently declined an offered meeting with nurse do to timing. Course of Session: People at [employer] have been urging him to get his BA, as this would open up more opportunities in his field. He's flattered, but not feeling inclined to purue more education at this point: Right now I don't even feel like working . Specific mental health/clinical interventions: Discussed importance of responding to phone messages to ensure quality of care. He says he thinks he can get himself to do this, and indeed he's less depressed than he's generally been when unresponsive. Mental Status/Clinical Impression: 1. Appearance (grooming, attire, apparent age) within normal limits: delusions): Yes - joking and relaxed, despite feeling blah. 2. Thought content was organized and goal directed: Yes 3. Speech was coherent and unimpaired: Yes 4. Affect was appropriate and unremarkable: Reports some depression 5. Demeanor was calm, with no signs of agitation or restlessness: Yes 6. Problems with sleep or appetite reported: Feels tired 7. Psychosis (hallucinations or Delusions: No Date of next planned contact: 2 weeks /es/ MARCELLA OSORIO, PhD Clinical Psychologist Signed: 05/10/2024 08:49 MARCELLA OSORIO [place] [facility]
--- OUTSIDE RECORDS SUMMARY | 2024-08-31 19:54 | XMS_ITS | Clinical Summary ---
Author Organization [employer] Address [address] [facility] [address] [place] [address] Care Team Providers Care Dial Brusher Name Role Phone Patricia Dennis Primary Care Provider [phone] Allergies Active Allergy Reactions Criticality Noted Date Comments Setaria Anaphylaxis High 06/21/2018 Tramadol 09/02/2016 Medications traZODone (Desyrel) 50 MG tablet Take 1 tablet by mouth at bed time. Active buPROPion (Wellbutrin) 100 MG tablet Take 1 tablet by mouth at bed time. Active cyclobenzaprine (Flexeril) 10 MG tablet Take 1 tablet by mouth in the morning and 1 tablet at noon and 1 tablet in the evening. 2 Active naproxen (Naprosyn) 500 MG tablet Take 1 tablet by mouth every 12 (twelve) hours. 2 Active sertraline (Zoloft) 50 MG tablet Take 1 tablet by mouth at bed time. Active bisoprolol (Zebeta) 5 MG tabletIndications :Essential hypertension Take 1 tablet (5 mg) by mouth in the morning. 90 tablet 4 Active amLODIPine (Norvasc) 5 MG tabletIndications :Essential hypertension Take 1 tablet (5 mg) by mouth in the morning. 90 tablet 4 Active Active Problems No known active problems Social History Tobacco Use Types Packs/Day Years Used Date Smoking Tobacco: Never Smokeless Tobacco: Never Tobacco Cessation:Counseling Given: Not Answered Sex and Gender Information Value Date Recorded Sex Assigned at Male 05/18/2022 10:30 AM EDT Legal Sex Male 10:30 AM EDT Gender Identity Male 05/18/2022 10:30 AM EDT Sexual Orientation Straight 05/18/2022 10 :30 AM EDT Last Filed Vital Signs Vital Sign Reading Time Taken Comments Blood Pressure 121/81 12/23/2021 12:06 AM EDT Pulse 73 12/23/2021 12:06 AM EDT Temperature - - Respiratory Rate - - Oxygen Saturation - - Inhaled Oxygen Concentration - - Weight 84.9 kg (187 lb 3.2 oz) 12/23/2021 12:06 AM EDT Height 176 cm (5' 9.29 ) 12/23/2021 12:06 AM EDT Body Mass Index 27.41 12/23/2021 12:06 AM EDT Plan of Treatment Health Maintenance Due Date Last Done Comments CT Colonography 1965 Colonoscopy 1965 Colorectal Cancer Screening 1965 Depression Screening 1965 FIT DNA/Cologuard 1965 FIT 1965 FOBT 1965 HIV Screening 1965 Lipid Panel 1965 SDOH Screening 1965 Sigmoidoscopy 1965 Alcohol/Substance Use Screening 1977 Hepatitis C Screening 10/01/1983 DTaP/Tdap/Td Vaccines (1 - Tdap) 1984 Hepatitis B Vaccines (1 of 3 - 19+ 3-dose series) 1984 Pneumococcal Vaccine: 50+ Years (1 of 1 - PCV) 10/01/2015 Zoster Vaccines (1 of 2) 10/01/2015 Tobacco Screening 10/09/2023 10/08/2022 COVID-19 Vaccine ( season) 2024 06/03/2022, 07/26/2021, 10/30/2020, Additional history exists RSV Patients and Patients Aged 60 years or older (1 - 1-dose 75+ series) 2040 Influenza Vaccine Completed 05/24/2024, , 08/17/2022, Additional history exists HIB Vaccines Aged Out No longer eligi ble based on patient's age to complete this topic HPV Vaccines Aged Out No longer eligi ble based on patient's age to complete this topic Hepatitis A Vaccines Aged Out No long er eligible based on patient's age to complete this topic IPV Vaccines Aged Out No longer eligi ble based on patient's age to complete this topic Meningococcal Vaccine Aged Out No josh lia eligible based on patient's age to complete this topic Pneumococcal Vaccine: Pediatrics (0 to 5 Years) and At-Risk Patients (6 to 49) Years) Aged Out No longer eligible based on patient's age to complete this topic RSV under 20 months Aged Out No longe r eligible based on patient's age to complete this topic Rotavirus Vaccines Aged Out No longer eligible based on patient's age to complete this topic Insurance [employer] C3 Care Teams Dial Brusher Relationship Specialty Start Date End Date Patricia Dennis ANP [address] [place] [address] PCP - General Family Medicine 01/16/22
== END 2024-08-31 19:51 | disposition home or self-care (01) ==
LOC: HO.MRI 19:50
PROVIDERS: PCP Internal Medicine; Visit Provider Internal Medicine
DX: R51.9 Headache, unspecified (principal)
CPT/HCPCS: 70551

== ENCOUNTER → 2024-08-31 19:58 | Outpatient (BNV) | payer OTHER, SELFPAY | PROVIDERS: PCP Internal Medicine; Visit Provider Radiology Diagnostic Radiology | DX: R51.9 Headache, unspecified (principal) | CPT/HCPCS: 70551 ==

== ENCOUNTER 2025-04-10 14:56 | Outpatient (REF) | payer MEDICAID, SELFPAY ==
[2025-04-10 16:20] LABS: MANUAL DIFF FLAG NO
[2025-04-10 16:26] LABS: Hematocrit 44.1 % (42.0-52.0); Hemoglobin 15.0 g/dl (14.0-18.0); Imm Gran Abs Auto 0.03 X10*3/uL (0.00-0.03); Imm Gran Pct Auto 0.5 % (0.0-0.4); Lymphocytes Absolute Auto 1.9 X10*3/uL (1.2-4.9); Mean Corpuscular HGB Conc 34.0 g/dl (31.0-36.0); Mean Corpuscular Hemoglobin 29.9 pg (27.0-33.0); Mean Corpuscular Volume 88.0 fL (80.0-98.0); NRBC Abs Auto 0.000 X10*3/uL (0.0-0.012); NRBC Pct Auto 0.0 /100WBC (0.0-0.2); Platelet Count 126 X10*3/uL (160-400); Red Blood Count 5.01 X10*6/uL (4.60-5.80); White Blood Count 6.3 X10*3/uL (4.8-10.8)
[2025-04-10 16:50] LABS: Blood Urea Nitrogen 15 mg/dL (9-16); Estimated Glomerular Filt Rate 59
--- OUTSIDE RECORDS SUMMARY | 2025-04-10 17:59 | XMS_ITS | Encounter Summary ---
Author Organization [facility] Address [address] [facility] [address] [place] [phone] Phone Care Team Providers Care Crisis Clinician Name Role Phone Unknown, Unknown Primary Care Provider Jeniffer talbert Encounter Details Date Type Department Care Team (Late st Contact Info) Description 05/19/2018 Ancillary Orders [facility] [address] [place] [address] [place] [address] Mateo Garduno, DO [address] [place] [address] Palpitations Social History Tobacco Use Types Packs/Day Years Used Date Smoking Tobacco: Never Assessed Sex and Gender Information Value Date Recorded Sex Assigned at Not on file Legal Sex Male 1:26 PM EDT Gender Identity Not on file Sexual Orientation Not on file documented as of this encounter Plan of Treatment Not on file documented as of this encounter Results * Holter Monitor 24 Hours (05/19/2018 11:32 AM EDT) Anatomical Region Laterality Modality Heart Other Narrative 05/19/2018 5:21 PM EDT 24-hour monitor: Baseline rhythm is sinus with a minimum heart rate 46, maximum 108, average 64 bpm. No long pauses occurred. Rare PVCs occurred. Occasional PACs incurred, including brief runs of atrial tachycardia, maximum 4 beats duration maximum 116 bpm. There were no symptoms reported. Impression: Normal 24-hour monitor. No symptoms reported. Procedure Note Ramón Mckeon MD - 05/19/2018 24-hour monitor: Baseline rhythm is sinus with a minimum heart rate 46,maximum 108, average 64 bpm. No long pauses occurred. Rare PVCsoccurred. Occasional PACs incurred, including brief runs of atrialtachycardia, maximum 4 beats duration maximum 116 bpm. There were nosymptoms reported. Impression: Normal 24-hour monitor. No symptoms reported. Mateo Garduno DO [facility] ORDERABLE S Final Result documented in this encounter Visit Diagnoses Diagnosis Palpitations Palpitations documented in this encounter Care Teams Crisis Clinician Relationship Specialty Start Date End Date Unknown, Unknown, MD PCP - General 05/18/18 documented as of this encounter Additional Source Comments The information contained in this document represents components of the legal health record. It is not the complete legal health record.[facility]
--- OUTSIDE RECORDS SUMMARY | 2025-04-10 17:59 | XMS_ITS | Clinical Summary ---
Author Organization [facility] Address [address] [place] [address] [place] [phone] Phone Care Team Providers Care Indoor Plant Technician Name Role Phone Unknown, Unknown Primary Care Provider Jeniffer talbert Social History Tobacco Use Types Packs/Day Years Used Date Smoking Tobacco: Never Assessed Education Answer Date Recorded Are you interested in more education? Not on hao e 11/13/2022 Are you concerned about learning? Not on file 11/13/2022 No 11/13/2022 No 11/13/2022 Digital Access Answer Date Recorded No 12/15/2022 No 12/15/2022 No 12/15/2022 Reliable internet access at home? Not on file 12/15/2022 Device with a working camera? Not on file Sex and Gender Information Value Date Recorded Sex Assigned at Not on file Legal Sex Male 1:26 PM EDT Gender Identity Not on file Sexual Orientation Not on file Plan of Treatment Not on file Medical Devices Not on file Insurance [facility] C3 ACO C3 ACO C3 ACO C3 ACO C3 ACO C3 ACO C3 ACO C[address] [place] [address] [place] [address] C3 ACO Care Teams Indoor Plant Technician Relationship Specialty Start Date End Date Unknown, Unknown, PCP - General 05/18/18 Additional Source Comments The information contained in this document represents components of the legal health record. It is not the complete legal health record.[facility]
== END 2025-04-10 14:57 | disposition home or self-care (01) ==
LOC: HO.HHCL 14:56
PROVIDERS: PCP Family Medicine; Visit Provider Family Medicine
DX: H02.844 Edema of left upper eyelid (principal); L03.213 Periorbital cellulitis
CPT/HCPCS: 36415; 82565; 84520; 85025; 85652; 86140

== ENCOUNTER 2025-04-20 09:33 | Outpatient (REF) | payer MEDICAID, SELFPAY ==
--- NOTE | ~2025-04-20 | CT_ITS ---
EXAMINATION: CT SINUS WITH CONTRAST CLINICAL INFORMATION: Periorbital cellulitis. COMPARISON: Correlated to the CT lumbar head dated May 03, 2024. TECHNIQUE: Contiguous axial images through the paranasal sinuses using 1.5 mm collimation following the IV contrast administration 80 cc Omnipaque 350 strength without reported immediate complications. Sagittal and coronal reformatted images acquired. DLP: [address] examination was performed using dose optimization techniques as appropriate, variously including the following: *Automated exposure control *Adjustment of mA and/or kV according to patient size (this includes techniques or standardized protocols for targeted exams where dose is matched to indication/reason for exam; i.e. extremities or head) *Use of iterative reconstruction technique FINDINGS: Poor pneumatization of the right frontal sinus. There is mild mucosal thickening and the paranasal sinuses involving mostly the frontal ethmoid recesses, ethmoid cells are axillary sinuses. No air-fluid levels. No gross retention cysts versus polyps. No acute fracture in the osseous structures. The nasal cavity, vestibule and vestibule are patent. There is mucosal thickening obstructing the left ostiomeatal complex. The right ostiomeatal complex is patent. Mild levoconvex nasal septum deviation. No gross peripheral in the nasal septum. There is type II vidian canal, bilaterally. The cribriform plate is intact. No gross enhancing fluid collections. No bony erosions. No osteolysis. No lytic or blastic lesions. Edentulous, maxilla. No gross masses or fluid collections within the orbits. CT/CT sinus w IV con IMPRESSION: Mild chronic paranasal sinus disease likely chronic. Obstructed left ostiomeatal unit secondary to mucosal thickening. No gross abscess. Electronically signed by: Poncho Smyth MD 04/20/2025 11:04 AM EDT
--- NOTE | ~2025-04-20 | CT_ITS ---
EXAMINATION: CT ORBIT WITH CONTRAST CLINICAL INFORMATION: Edema, left upper eyelid COMPARISON: Correlated to CT paranasal sinuses April 20, 2025. TECHNIQUE: Contiguous axial images through the orbits using 2 mm collimation following the IV contrast administration 80 cc Omnipaque 350 stripe without reported immediate complications. Sagittal and coronal reformatted images acquired. Total DLP: [address] examination was performed using dose optimization techniques as appropriate, variously including the following: *Automated exposure control *Adjustment of mA and/or kV according to patient size (this includes techniques or standardized protocols for targeted exams where dose is matched to indication/reason for exam; i.e. extremities or head) *Use of iterative reconstruction technique FINDINGS: No peripheral enhancing fluid collection, preseptal periorbital region. No peripheral enhancing fluid collections in the intraconal or extraconal compartments of the orbits. The eyeballs are intact without enhancing abnormality. No subcutaneous emphysema. The extraocular muscles demonstrate normal morphology and enhancement pattern. The intraconal and intracanalicular segments of the optic nerves are symmetric without enhancing lesion. The orbital rims, orbital fissures and orbital apices are intact. No bony erosions. No lytic or blastic lesions. No air-fluid levels in the paranasal sinuses. Mucosal thickening in the paranasal sinuses resulting in obstruction of the left ostiomeatal unit. Levoconvex nasal septum deviation. Edentulous, maxilla. No enhancing lesion or enhancing fluid collections in the anterior cranial fossa. No peripheral enhancing fluid collections in the included dye range operator cloth compartment. Skull base, nasopharynx demonstrated no focal enhancing fluid collections or gross masses. CT/CT orbit BI w IV con IMPRESSION: No abscesses and or phlegmon, in either orbit. Electronically signed by: Poncho Smyth MD 04/20/2025 11:09 AM EDT
--- OUTSIDE RECORDS SUMMARY | 2025-04-20 10:11 | XMS_ITS | Encounter Summary ---
Author Organization [facility] Address [address] [facility] [address] [place] [phone] Phone Care Team Providers Care Lawn And Garden Technician Name Role Phone Unknown, Unknown Primary Care Provider Jeniffer talbert Encounter Details Date Type Department Care Team (Late st Contact Info) Description 05/19/2018 Ancillary Orders [facility] [address] [place] [address] [place] [address] Mateo Garduno, DO [address] [place] [address] Palpitations Social History Tobacco Use Types Packs/Day [...] Palpitations documented in this encounter Care Teams Lawn And Garden Technician Relationship Specialty Start Date End Date Unknown, Unknown, MD PCP - General 05/18/18 documented as of this encounter Additional Source Comments The information contained in this document represents components of the legal health record. It is not the complete legal health record.[facility]
--- OUTSIDE RECORDS SUMMARY | 2025-04-20 10:11 | XMS_ITS | Clinical Summary ---
Author Organization [facility] Address [address] [place] [address] [place] [phone] Phone Care Team Providers Care Batch Blender Name Role Phone Unknown, Unknown Primary Care [...] file Medical Devices Not on file Insurance [facility] C3 ACO C3 ACO C3 ACO C3 ACO C3 ACO C3 ACO C3 ACO C[address] [place] [address] [place] [address] C3 ACO Care Teams Batch Blender Relationship Specialty Start Date End Date Unknown, Unknown, PCP - General 05/18/18 Additional Source Comments The information contained in this document represents components of the legal health record. It is not the complete legal health record.[facility]
--- OUTSIDE RECORDS SUMMARY | 2025-04-20 10:11 | XMS_ITS | Clinical Summary ---
Author Organization [employer] Address [address] [facility] [address] [place] [address] Care Team Providers Care Tobacco Sorter Name Role Phone Patricia Dennis Primary Care Provider [phone] Allergies Active Allergy Reactions Criticality Noted Date [...] mouth every 12 (twelve) hours. 2 Active buPROPion XL (Wellbutrin XL) 150 MG 24 hr tablet Take 150 mg by mouth in the morning. 2 Active prazosin (Minipress) 2 MG capsule Take 2 mg by mouth at bedtime. 4 Active simvastatin (Zocor) 40 MG tablet Take 40 mg by mouth. 1 Active bisoprolol (Zebeta) 5 MG tablet Take 5 mg by mouth Once per day. Active hydroCHLOROthia zide 12.5 MG tabletIndicatio ns:Hypertension Take 12.5 mg by mouth Once per day. Active sertraline (Zoloft) 100 MG tablet 100 mg. 2 Active tobramycin-dexA METHasone (Tobradex) ophthalmic suspension Administer 1 drop into the left eye every 4 (four) hours while awake for 10 days. 10 mL 5 04/20/20 25 Active amoxicillin-cla vulanate (Augmentin) 875-125 MG tablet Take 1 tablet by mouth 2 times daily for 7 days. 14 tablet 5 04/17/20 Active Problems Problem Noted Date Diagnosed Date High cholesterol 11/03/2024 Impingement syndrome of left shoulder 11/03/2024 PTSD (post-traumatic stress disorder) 11/03/2024 SUMAN (obstructive sleep apnea) 11/03/2024 Carpal tunnel syndrome 02/10/2018 Essential hypertension 02/10/2018 Encounters Date Type Department Care Team Description 04/10/2025 2:15 PM EDT Office Visit [facility] [address] [place] [phone] Ana Hernandez MD Swelling of left upper eyelid (Primary Dx); Preseptal cellulitis of left upper eyelid 04/10/2025 Travel 02/20/2025 Telephone [facility] [address] [place] [address] Patricia Dennis ANP April recall from Last 3 Months Immunizations Immunization Administration Dates Next Due Influenza Injectable Quadriv alant Preservative Free IIV4 MDCK 08/17/2022 Influenza injectable quadriv alent IIV4 with preservative 05/26/2016 Influenza injectable quadriv alent preservative free 09/20/2023,06/03/2022,03/26/2021,2018,06/21/2018 Influenza, seasonal, injecta ble, preservative free 05/24/2024 Moderna Covid-19 Vaccine 12+ 07/26/2021,10/31/19 21,10/02/2020 Moderna Covid-19 Vaccine 6+ Bivalent 06/03/2022 Zoster, Recombinant 12/31/2022 Family History Medical History Relation Name Comments Cancer Father leukemia Relation Name Status Comments Father Social History Tobacco Use Types Packs/Day Years Used Date Smoking Tobacco: Never Smokeless Tobacco: Never Tobacco Cessation:Counseling Given: Not Answered Housing Stability Answer Date Recorded What is your housing situation today? I have leslye kirk 11/03/[address] you li ve. Do you have problems with any of the following? Not on file 11/03/2024 Food Insecurity Answer Date Recorded Within the past 12 months, y ou worried that your food would run out before you got money to buy more: Never True 11/03/2024 Within the past 12 months,th e food you bought just didn't last and you didn't have enough money to get more: Never True Transportation Answer Date Recorded In the past 12 months, has l ack of transportation kept you from medical appts, meetings, work or from getting things needed for daily living? No 11/03/2024 Utilities Answer Date Recorded In the past 12 months, has t he electric, gas, oil or water company threatened to shut off services in your home? No 11/03/2024 Depression Answer Date Recorded Patient Health Questionnaire-2 Score 0 11/03/2024 Internet Access Answer Date Recorded Internet Access Q1 Yes 11/03/2024 Internet Access Q2 Not on file 11/03/2024 Sex and Gender Information Value Date Recorded Sex Assigned at Male 05/18/2022 10:30 AM EDT Legal Sex Male 10:30 AM EDT Gender Identity Male 05/18/2022 10:30 AM EDT Sexual Orientation Straight 05/18/2022 10 :30 AM EDT Last Filed Vital Signs Vital Sign Reading Time Taken Comments Blood Pressure 122/82 04/10/2025 2:25 PM EDT Pulse 75 04/10/2025 2:25 PM EDT Temperature 36.1 C (96.9 F) 04/10/2025 2:25 PM EDT Respiratory Rate 19 04/10/2025 2:25 PM EDT Oxygen Saturation 94% 04/10/2025 2:25 PM EDT Inhaled Oxygen Concentration - - Weight 88.2 kg (194 lb 6.4 oz) 04/10/2025 2:25 P M EDT Height 175.3 cm (5' 9 ) 04/10/2025 2:25 PM EDT Body Mass Index 28.71 04/10/2025 2:25 PM EDT Plan of Treatment Health Maintenance Due Date Last Done Comments CT Colonography 1965 FIT DNA/Cologuard 1965 FIT 1965 FOBT 1965 HIV Screening 1965 Lipid Panel 1965 SDOH Screening 1965 Sigmoidoscopy 1965 Hepatitis C Screening 10/01/1983 DTaP/Tdap/Td Vaccines (1 - Tdap) 1984 Hepatitis B Vaccines (1 of 3 - 19+ 3-dose series) 1984 Pneumococcal Vaccine: 50+ Years (1 of 1 - PCV) 10/01/2015 COVID-19 Vaccine (5 - 2024- season) 2025 06/03/2022, 07/26/2021, 10/30/2020, Additional history exists Influenza Vaccine (#1) 2025 , 09/20/2023, 08/17/2022, Additional history exists Alcohol/Substance Use Screening 11/03/2025 11/03/2024 Depression Screening 11/03/2025 11/03/2024, 11/04/19 25 Disability Screening 11/03/2025 11/03/2024 Colonoscopy 02/01/2026 Colorectal Cancer Screening 02/01/2026 Tobacco Screening 04/10/2026 04/10/2025 RSV Patients and Patients Aged 60 years or older (1 - 1-dose 75+ series) 2040 Zoster Vaccines Completed 11/29/2024, 12/31/2022 HIB Vaccines Aged Out No longer eligi [...] patient's age to complete this topic Meningococcal B Vaccine Aged Out No l onger eligible based on patient's age to complete this topic Meningococcal Vaccine Aged Out No josh lia eligible based on patient's age to complete this topic RSV under 20 months Aged Out No longe r eligible based on patient's age to complete this topic Rotavirus Vaccines Aged Out No longer eligible based on patient's age to complete this topic Procedures Procedure Name Priority Date/Time Associated Diagnosis Comments CREATININE, SERUM Routine 04/10/2025 3:1 4 PM EDT Swelling of left upper eyelid Preseptal cellulitis of left upper eyelid UREA NITROGEN (BUN) Routine 04/10/2025 3 :14 PM EDT Swelling of left upper eyelid Preseptal cellulitis of left upper eyelid SED RATE BY MODIFIED WESTERGREN Routine 04/10/2025 3:14 PM EDT Swelling of left upper eyelid Preseptal cellulitis of left upper eyelid C-REACTIVE PROTEIN Routine 04/10/2025 3: 14 PM EDT Swelling of left upper eyelid Preseptal cellulitis of left upper eyelid CBC WITH AUTO DIFFERENTIAL Routine 04/10/2025 3:14 PM EDT Swelling of left upper eyelid Preseptal cellulitis of left upper eyelid from Last 3 Months Results * Creatinine, Serum (04/10/2025 3:14 PM EDT) Creatinine, Serum 1.25 0.5 - 1.4 mg/dL [facility] Estimated Glomerular Filt Rate 59 [facility] Comment:Chronic Kidney Disea se: Estimated GFR < 60 mL/min/[id number] Kidney Disease: Estimated GFR < 15 mL/min/1.73m2 Blood Venous blood specimen / Unknown 04/10/2025 3:14 PM EDT 04/10/2025 4:22 PM EDT us Ana Hernandez MD LAB BLOOD ORDERABLES Final Resul t [facility] [address] [place] [phone] * (ABNORMAL) CBC auto differential (04/10/2025 3:14 PM EDT) White Blood Count 6.3 4.8 - 10.8 X10*3/uL [facility] Red Blood Count 5.01 4.60 - 5.80 X10*6/uL [facility] Hemoglobin 15.0 14.0 - 18.0 g/dl [facility] Hematocrit 44.1 42.0 - 52.0 % [facility] Mean Corpuscular Volume 88.0 80.0 - 98.0 fL [facility] Mean Corpuscular Hemoglobin 29.9 27.0 - 33.0 pg [facility] Mean Corpuscular HGB Conc 34.0 31.0 - 36.0 g/dl [facility] Red Cell Distribution Width 12.5 11.0 - 16.0 % [facility] Platelet Count 126(L) 160 - 400 X10*3/uL [facility] Mean Platelet Volume 11.1 9.4 - 12.4 fL [facility] Neutrophils Percent Auto 55.6 45 - 73 % [facility] Imm Gran Pct Auto 0.5(H) 0.0 - 0.4 % [facility] Lymphocytes Percent Auto 29.5 20 - 40 % [facility] Monocytes Percent Auto 8.0 2 - 11 % [facility] Eosinophils Percent Auto 5.9(H) 0 - 4 % [facility] Basophils Percent Auto 0.5 0 - 2 % [facility] NRBC Pct Auto 0.0 0.0 - 0.2 /100WBC [facility] Neutrophils Absolute Auto 3.5 2.0 - 8.3 x10*3/uL [facility] Imm Gran Abs Auto 0.03 0.00 - 0.03 X10*3/uL [facility] Lymphocytes Absolute Auto 1.9 1.2 - 4.9 X10*3/uL [facility] Monocytes Absolute Auto 0.5 0.1 - 1.2 X10*3/uL [facility] Eosinophils Absolute Auto 0.4 0.0 - 0.4 X10*3/uL [facility] Basophils Absolute Auto 0.0 0.0 - 0.2 X10*3/uL [facility] NRBC Abs Auto 0.000 0.0 - 0.012 X10*3/uL [facility] Blood Venous blood specimen / Unknown 04/10/2025 3:14 PM EDT 04/10/2025 4:09 PM EDT us Ana Hernandez MD LAB BLOOD ORDERABLES Final Resul t [facility] [address] [place] [phone] * Sed Rate by Modified Hugoergren (04/10/2025 3:14 PM EDT) Erythrocyte Sedimentation Rate 5 0 - 15 MM/HR [facility] Comment:Patients with polycy themia and many hemoglobin abnormalitiesmay have depressed sed rates whereas patients with anemiamay have elevated sed rates. Blood Venous blood specimen / Unknown 04/10/2025 3:14 PM EDT 04/10/2025 4:09 PM EDT Ana Hernandez MD LAB BLOOD ORDERABLES Final Resul t Performing Organization Address [facility] Co de Phone Number [facility] [address] [place] [phone] * C-reactive Protein (04/10/2025 3:14 PM EDT) C Reactive Protein 0.27 < or = 0.50 mg/dL [facility] Blood Venous blood specimen / Unknown 04/10/2025 3:14 PM EDT 04/10/2025 4:22 PM EDT Ana Hernandez MD LAB BLOOD ORDERABLES Final Resul t Performing Organization Address [facility] Co de Phone Number [facility] [address] [place] [phone] * BUN (Blood Urea Nitrogen) (04/10/2025 3:14 PM EDT) Urea Nitrogen (BUN) 15 9 - 16 mg/dL [facility] Blood Venous blood specimen / Unknown 04/10/2025 3:14 PM EDT 04/10/2025 4:22 PM EDT Ana Hernandez MD LAB BLOOD ORDERABLES Final Resul t Performing Organization Address [facility] Co de Phone Number [facility] [address] [place] [address] [phone] from Last [address] [address] C3 Care Teams Tobacco Sorter Relationship Specialty Start Date End Date Patricia Dennis ANP [address] [place] [phone] PCP - General Family Medicine 01/16/22
[2025-04-20] MEDS: iohexoL 350 MG/ML 100 ML INFUS..BTL IV (10:45)
== END 2025-04-20 09:34 | disposition home or self-care (01) ==
LOC: HO.CT 09:33
PROVIDERS: PCP Family Medicine; Visit Provider Family Medicine
DX: L03.213 Periorbital cellulitis (principal); H02.844 Edema of left upper eyelid
CPT/HCPCS: 70481; 70487; Q9967

== ENCOUNTER → 2025-04-20 09:36 | Outpatient (BNV) | payer MEDICAID, SELFPAY | PROVIDERS: PCP Family Medicine; Visit Provider Radiology Diagnostic Radiology | DX: H02.844 Edema of left upper eyelid (principal); J34.89 Other specified disorders of nose and nasal sinuses | CPT/HCPCS: 70481; 70487 ==